=== PATIENT | female | born 1940 | race Caucasian/White ===

== ENCOUNTER 2017-06-26 11:20 | Inpatient (IN) | payer OTHER, MEDICARE ==
[~2017-06-26] VITALS: Ht 157.5 cm; Wt 117.1 kg
[2017-06-26] VITALS (7 sets, daily range): BP systolic 139–181; BP diastolic 62–77; PULSE 68–97; RESP 18–22; TEMP 97.6–98.7; O2SAT 89–98
[2017-06-26] MEDS ORDERED: LOSA25TA PO (11:36)
[2017-06-26] MEDS ORDERED: D3 U5000 PO (11:36)
[2017-06-26] MEDS ORDERED: METO25TA3 PO (11:36)
[2017-06-26] MEDS ORDERED: CENTCHW4 CHEW (11:36)
[2017-06-26] MEDS ORDERED: BUME1TAB PO (11:36)
[2017-06-26] MEDS ORDERED: OMEP20TA93 PO (11:36)
[2017-06-26] MEDS ORDERED: SIMV5TAB3 PO (11:36)
[2017-06-26] MEDS ORDERED: DILT-48 PO (11:36)
--- NOTE | 2017-06-26 11:37 | PD ---
HPI Chief Complaint: Chest Pain Time Seen by Provider: 11:27 Travel History International Travel<30 days: No Contact w/Intl Traveler<30days: No Traveled to known affect area: No History of Present Illness HPI 77-year-old female with history of A. fib not on any anticoagulation, here for evaluation of chest pain and dyspnea. The patient reports her symptoms have been going on for about a month. She reports chest tightness every day for the last month with dyspnea at rest, worse with exertion. The patient reports she is unable to walk across a room without becoming extremely short of breath. She has had a cough productive of yellowish sputum. No hemoptysis. No fevers or recent illness. No history of DVT or PE. She is on bumetanide, however she states it does not help her. She reports a 20 pound weight gain in the last 2 months. Her cushion gum applicator is Dr. Henning, however she reports that she would like to switch cardiologists. PFSH Social History Tobacco Use: No (Former smoker) Allergies-Medications (Allergen,Severity, Reaction): Coded Allergies: No Known Allergies (Verified Allergy, Unknown, 06/26/17) Reported Meds & Prescriptions Reported Meds & Active Scripts Active Reported Centrum (Multiple Vitamins W/ Minerals) 1 Chew 1 Tab CHEW DAILY D3 Ultra Strength (Cholecalciferol) 5,000 Unit Cap 5,000 Units PO DAILY Metoprolol Tartrate 25 Mg Tab 25 Mg PO DAILY Bumetanide 1 Mg Tab 1 Mg PO DAILY Simvastatin 5 Mg Tab 5 Mg PO HS Omeprazole 20 Mg Tab 20 Mg PO BID Losartan (Losartan Potassium) 25 Mg Tab 25 Mg PO DAILY Diltiazem ER 24 HR 240 Mg Caper 240 Mg PO HS Review of Systems Except as stated in HPI: all other systems reviewed are Neg Physical Exam Narrative GENERAL: Well-developed, well-nourished, overweight, mild respiratory distress, speaking full sentences. SKIN: Focused skin assessment warm/dry. HEAD: Atraumatic. Normocephalic. EYES: Pupils equal and round. No scleral icterus. No injection or drainage. ENT: No nasal bleeding or discharge. Mucous membranes pink and moist. NECK: Trachea midline. No JVD. CARDIOVASCULAR: Irregularly irregular. RESPIRATORY: Mild respiratory distress. Speaking full sentences. No accessory muscle use. Clear to auscultation. Breath sounds equal bilaterally. GASTROINTESTINAL: Abdomen soft, non-tender, nondistended. MUSCULOSKELETAL: No obvious deformities. No clubbing. No cyanosis. Moderate bilateral lower extremity edema. NEUROLOGICAL: Awake and alert. No obvious cranial nerve deficits. Motor grossly within normal limits. Normal speech. PSYCHIATRIC: Appropriate mood and affect; insight and judgment normal. Data Data Last Documented VS Vital Signs Date Time Temp Pulse Resp B/P (MAP) Pulse Ox O2 Delivery O2 Flow Rate FiO2 06/26/17 14:00 144/71 (95) 98 Nasal Cannula 06/26/17 12:37 90 22 06/26/17 12:06 2.00 Orders Orders Complete Blood Count With Diff (06/26/17 11:34) Comprehensive Metabolic Panel (06/26/17 11:34) B-Type Natriuretic Peptide (06/26/17 11:34) Act Partial Throm Time (Ptt) (06/26/17 11:34) Prothrombin Time / Inr (Pt) (06/26/17 11:34) Ckmb (Isoenzyme) Profile (06/26/17 11:34) Troponin I (06/26/17 11:34) Iv Access Insert/Monitor (06/26/17 11:34) Ecg Monitoring (06/26/17 11:34) Oximetry (06/26/17 11:34) Oxygen Administration (06/26/17 11:34) Chest, Single Ap (06/26/17 11:34) Sodium Chloride 0.9% Flush (Ns Flush) (06/26/17 11:45) Aspirin Chew (Aspirin Chew) (06/26/17 11:45) Nitroglycerin Sl (Nitrostat Sl) (06/26/17 11:45) Furosemide Inj (Lasix Inj) (06/26/17 12:30) Urinalysis - C+S If Indicated (06/26/17 13:20) Admit Order (Ed Use Only) (06/26/17 14:05) Labs Laboratory Tests Test 06/26/17 11:30 06/26/17 13:35 White Blood Count 9.9 TH/MM3 Red Blood Count 4.43 MIL/MM3 Hemoglobin 9.3 GM/DL Hematocrit 31.1 % Mean Corpuscular Volume 70.2 FL Mean Corpuscular Hemoglobin 20.9 PG Mean Corpuscular Hemoglobin Concent 29.8 % Red Cell Distribution Width 17.6 % Platelet Count 450 TH/MM3 Mean Platelet Volume 8.7 FL Neutrophils (%) (Auto) 78.6 % Lymphocytes (%) (Auto) 14.6 % Monocytes (%) (Auto) 5.0 % Eosinophils (%) (Auto) 1.0 % Basophils (%) (Auto) 0.8 % Neutrophils # (Auto) 7.8 TH/MM3 Lymphocytes # (Auto) 1.4 TH/MM3 Monocytes # (Auto) 0.5 TH/MM3 Eosinophils # (Auto) 0.1 TH/MM3 Basophils # (Auto) 0.1 TH/MM3 CBC Comment AUTO DIFF Differential Comment AUTO DIFF CONFIRMED Platelet Estimate NORMAL Platelet Morphology Comment NORMAL Basophilic Stippling FAINT Ovalocytes 1+ Rouleau PRESENT Prothrombin Time 10.4 SEC Prothromb Time International Ratio 1.0 RATIO Activated Partial Thromboplast Time 26.7 SEC Blood Urea Nitrogen 17 MG/DL Creatinine 0.64 MG/DL Random Glucose 155 MG/DL Total Protein 7.6 GM/DL Albumin 3.3 GM/DL Calcium Level 8.9 MG/DL Alkaline Phosphatase 109 U/L Aspartate Amino Transf (AST/SGOT) 17 U/L Alanine Aminotransferase (ALT/SGPT) 31 U/L Total Bilirubin 0.5 MG/DL Sodium Level 142 MEQ/L Potassium Level 3.7 MEQ/L Chloride Level 105 MEQ/L Carbon Dioxide Level 27.2 MEQ/L Anion Gap 10 MEQ/L Estimat Glomerular Filtration Rate 90 ML/MIN Total Creatine Kinase 50 U/L Troponin I LESS THAN 0.02 NG/ML B-Type Natriuretic Peptide 51 PG/ML Urine Collection Type CLEAN CATCH Urine Color YELLOW Urine Turbidity CLEAR Urine pH 6.0 Urine Specific Arnold 1.010 Urine Protein NEG mg/dL Urine Glucose (UA) NEG mg/dL Urine Ketones NEG mg/dL Urine Occult Blood NEG Urine Nitrite NEG Urine Bilirubin NEG Urine Urobilinogen 0.2 MG/DL Urine Leukocyte Esterase NEG Urine WBC 0-2 /hpf Urine Squamous Epithelial Cells 0-5 /hpf Urine Amorphous Sediment FEW Microscopic Urinalysis Comment MUCOUS PRESENT Urine Collection Time 1335 MDM Medical Decision Making Medical Screen Exam Complete: Yes Emergency Medical Condition: Yes Interpretation(s) EKG: Sinus, rate 102, leftward axis, LBBB, Q waves in inferior leads, no acute ischemic abnormality. Differential Diagnosis CHF/pulmonary edema, ACS, pneumothorax, PE, pneumonia Narrative Course Initial vital signs show heart rate 92, blood pressure 169/77, pulse ox 89% on room air. CBC: WBC 9.9, hemoglobin 9.3, hematocrit 31.1, platelets 450, MCV 70. The patient reports history of anemia. She denies melena or hematochezia. CMP is unremarkable. Cardiac enzymes are negative. BNP Chest x-ray: CONCLUSION: 1. Basilar atelectasis with suspected vascular congestion. Cardiomegaly. No consolidation or significant effusion. Patient was given 1 sublingual nitroglycerin, 324 mg of aspirin, and 40 mg of Lasix IV and on reassessment feels improved. She endorses orthopnea over the last several nights. She has significant bilateral lower extremity edema. Her O2 saturation is also 89% on room air. She will be admitted for further treatment and evaluation of CHF exacerbation. Case discussed with hospitalist Dr. Combs who will admit the patient to his service. Diagnosis Primary Impression: CHF exacerbation Qualified Codes: I50.9 - Heart failure, unspecified Additional Impression: Chest pain Qualified Codes: R07.9 - Chest pain, unspecified Admitting Information Admitting Physician Requests: Admit Tam Reid MD Jun 26, 2017 11:37
[2017-06-26] MEDS ORDERED: SODIUM CHLORIDE 0.9% FLUSH 10 ML FLUSH IVF PRN (11:45)
[2017-06-26] MEDS ORDERED: ASPIRIN 81 MG CHEW TAB PO ONE (11:45)
[2017-06-26] MEDS ORDERED: NITROGLYCERIN 0.4 MG SL 25 TABS/BTL SL ONE (11:45)
[2017-06-26 12:16] LABS: AUTOMATED NEUTROPHIL # 7.8 TH/MM3 (1.8-7.7); BASOPHIL # 0.1 TH/MM3 (0-0.2); BASOPHIL % 0.8 % (0.0-2.0); EOSINOPHIL # 0.1 TH/MM3 (0-0.4); HEMATOCRIT 31.1 % (35.0-46.0); HEMOGLOBIN 9.3 GM/DL (11.6-15.3); LYMPH % 14.6 % (9.0-44.0); LYMPHOCYTE # 1.4 TH/MM3 (1.0-4.8); MEAN CELL VOLUME 70.2 FL (80.0-100.0); MEAN CORPUSCULAR HEMOGLOBIN 20.9 PG (27.0-34.0); MEAN PLATELET VOLUME 8.7 FL (7.0-11.0); MONOCYTE # 0.5 TH/MM3 (0-0.9); NEUT % 78.6 % (16.0-70.0); PLATELET COUNT 450 TH/MM3 (150-450); RED BLOOD COUNT 4.43 MIL/MM3 (4.00-5.30); RED CELL DISTRIBUTION WIDTH 17.6 % (11.6-17.2); WHITE BLOOD COUNT 9.9 TH/MM3 (4.0-11.0)
--- NOTE | 2017-06-26 12:17 | RADRPT ---
EXAM DATE/TIME: 06/26/2017 11:51 [facility] COMPARISON: No previous studies available for comparison. INDICATIONS : Short of breath, chest pain MEDICAL HISTORY : Hypertension. SURGICAL HISTORY : None. ENCOUNTER: Initial ACUITY: 2 months PAIN SCORE: 7/10 LOCATION: Bilateral chest FINDINGS: There is mild basilar airspace disease most characteristic of atelectasis. No significant edema. Ther e is some mild vascular congestion. Heart size enlarged. No effusions. No pneumothorax. CONCLUSION: 1. Basilar atelectasis with suspected vascular congestion. Cardiomegaly. No consolidation or signific ant effusion. Prabhjot Xie MD on June 26, 2017 at 12:14 Board Certified Radiologist. This report was verified electronically.
[2017-06-26 12:23] LABS: MEAN CORPUSCULAR HGB CONC 29.8 % (32.0-36.0)
[2017-06-26] MEDS ORDERED: FUROSEMIDE 40 MG/4 ML VIAL IV PUSH ONE (12:30)
[2017-06-26 12:39] LABS: PROTHROMBIN TIME - PATIENT 10.4 SEC (9.8-11.6)
[2017-06-26 12:42] LABS: OVALOCYTES 1+ (NORMAL); ROULEAUX PRESENT (NORMAL)
[2017-06-26 12:54] LABS: CHLORIDE 105 MEQ/L (98-107); SODIUM (NA) 142 MEQ/L (136-145)
[2017-06-26 12:58] LABS: ALBUMIN 3.3 GM/DL (3.4-5.0); BICARBONATE 27.2 MEQ/L (21.0-32.0); BLOOD UREA NITROGEN 17 MG/DL (7-18); CALCIUM 8.9 MG/DL (8.5-10.1); GLUCOSE,RANDOM 155 MG/DL (74-106)
[2017-06-26 13:01] LABS: ALT (GPT) 31 U/L (10-53); AST (GOT) 17 U/L (15-37); CREATININE 0.64 MG/DL (0.50-1.00); GLOMERULAR FILTRATION RATE 90 ML/MIN (>89)
[2017-06-26 13:03] LABS: TOTAL BILIRUBIN ADULT 0.5 MG/DL (0.2-1.0); TOTAL PROTEIN 7.6 GM/DL (6.4-8.2)
[2017-06-26 13:04] LABS: ALKALINE PHOSPHATASE 109 U/L (45-117)
[2017-06-26 13:06] LABS: TROPONIN I LESS THAN 0.02 NG/ML (0.02-0.05)
[2017-06-26 14:34] LABS: BILIRUBIN, URINE NEG (NEG); BLOOD, URINE NEG (NEG); GLUCOSE,URINE NEG (NEG); KETONE, URINE NEG (NEG); NITRITE,URINE NEG (NEG); URINE COLOR YELLOW (YELLW/STRAW); URINE LEUKOCYTE ESTERASE NEG (NEG)
[2017-06-26 14:47] LABS: AMORPHOUS SEDIMENT, URINE FEW; SQUAMOUS EPITHELIAL CELL URINE 0-5 /hpf (0-5); WBC, URINE 0-2 /hpf (0-5)
[2017-06-26] MEDS ORDERED: SODIUM CHLORIDE 0.9% FLUSH 10 ML FLUSH IV FLUSH PRN (15:15)
[2017-06-26] MEDS ORDERED: ONDANSETRON HCL 4 MG/2 ML VIAL IVP PRN (15:15)
[2017-06-26] MEDS ORDERED: MAGNESIUM HYDROXIDE SUSP 30 ML CUP PO PRN (15:15)
[2017-06-26] MEDS ORDERED: NALOXONE HCL 0.4 MG/ML AMP IV PUSH PRN (15:15)
[2017-06-26] MEDS ORDERED: MORPHINE SULFATE 2 MG/ML INJ IV PUSH PRN ×2 (15:15)
[2017-06-26] MEDS ORDERED: ENOXAPARIN SODIUM 40 MG/0.4 ML SYRINGE SQ SCH (16:00)
--- NOTE | 2017-06-26 18:27 | HHI.HP ---
[facility] Service [facility] Primary Care Physician Justus Fitzgerald MD Admission Diagnosis CHF exacerbation, chest pain Diagnoses: Chief Complaint: Dyspnea, chest pain, orthopnea Travel History International Travel<30 Days: No Contact w/Intl Traveler <30 Da: No Traveled to Known Affected Are: No History of Present Illness This is a pleasant 77-year-old female patient with a known medical history of hypertension, hypercholesterolemia, GERD and CHF who presented to the ED with complaints of worsening dyspnea with associated chest pain. Patient states that over the course of the last couple months she has been having increasing dyspnea on exertion and orthopnea. Patient states that roughly 2 weeks she has been feeling fatigued and extremely short of breath. She states that she is unable to walk across the room without becoming short of breath. She is unable to perform her activities of daily living without having to rest. Patient states that over the course of the last 2 days she has developed a chest discomfort, characterized as pressure in nature, is intermittent and comes and go with activity. She states that the pain worsens with walking and is relieved with rest. When the pain is present to 10 out of 10 on pain scale and last several minutes. Patient does admit to a chronic cough with clear phlegm. Denies any recent illness including fever, chills, abdominal pain, nausea, vomiting, diarrhea or dysuria. Patient's PCP is Dr. Fitzgerald was last seen 1-1/ 2 months ago with no changes in medicines. Patient was previously following Dr. Henning but has not seen him for over 2 years. Patient states she underwent a stress test over 10 years ago which was reportedly negative. Has not had a recent echocardiogram. And does not know whether she has actually the diagnosis of CHF. It should be noted that patient has gained roughly 20 pounds over the last 2 months. She does present with bilateral leg edema. No history of DVT or PE. She has been compliant with medications including Bumex. Review of Systems Constitutional: DENIES: Fever, Weight loss Eyes: DENIES: Blurred vision, Diplopia Respiratory: COMPLAINS OF: Cough, Shortness of breath, DENIES: Sputum production Cardiovascular: COMPLAINS OF: Chest pain, Dyspnea on Exertion, Lower Extremity Edema, Orthopnea, DENIES: Palpitations Gastrointestinal: DENIES: Abdominal pain, Black stools, Bloody stools, Constipation, Diarrhea, Nausea, Vomiting Musculoskeletal: DENIES: Joint pain Neurologic: DENIES: Abnormal gait Psychiatric: DENIES: Anxiety Except as stated in HPI: all other systems reviewed are Neg Past Family Social History Past Medical History Dyslipidemia GERD Hypertension CHF Past Surgical History Left knee replacement Bilateral cataracts Hernia repair Reported Medications Active Reported Centrum (Multiple Vitamins W/ Minerals) 1 Chew 1 Tab CHEW DAILY D3 Ultra Strength (Cholecalciferol) 5,000 Unit Cap 5,000 Units PO DAILY Metoprolol Tartrate 25 Mg Tab 25 Mg PO DAILY Bumetanide 1 Mg Tab 1 Mg PO DAILY Simvastatin 5 Mg Tab 5 Mg PO HS Omeprazole 20 Mg Tab 20 Mg PO BID Losartan (Losartan Potassium) 25 Mg Tab 25 Mg PO DAILY Diltiazem ER 24 HR 240 Mg Caper 240 Mg PO HS Allergies: Coded Allergies: No Known Allergies (Verified Allergy, Unknown, 06/26/17) Active Ordered Medications Current Medications Medications (Trade) Dose Ordered Sig/Van Route Start Time Stop Time Status Last Admin (NS Flush) 2 ml UNSCH PRN IV FLUSH 06/26/17 15:15 (NS Flush) 2 ml BID IV FLUSH 06/26/17 21:00 (Zofran Inj) 4 mg Q6H PRN IVP 06/26/17 15:15 (Lovenox Inj) 40 mg Q24H SQ 06/26/17 16:00 06/26/17 16:12 (Morphine Inj) 2 mg Q3H PRN IV PUSH 06/26/17 15:15 (Morphine Inj) 4 mg Q3H PRN IV PUSH 06/26/17 15:15 (Narcan Inj) 0.4 mg UNSCH PRN IV PUSH 06/26/17 15:15 (Milk Of Magnesia Liq) 30 ml Q12H PRN PO 06/26/17 15:15 (Vitamin D3) 5,000 units DAILY PO 06/27/17 09:00 UNV (Cardizem Cd) 240 mg HS PO 06/26/17 21:00 UNV (Cozaar) 25 mg DAILY PO 06/27/17 09:00 UNV (Theragran M Tab) 1 tab DAILY PO 06/27/17 09:00 UNV Non-Formulary Medication 20 mg BID PO 06/26/17 21:00 UNV Non-Formulary Medication 5 mg HS PO 06/26/17 21:00 UNV Family History Maternal medical history significant for ME at the age of 72. Father had unspecified cancer. Social History Patient denies any tobacco, alcohol or illicit drug use. Physical Exam Vital Signs Vital Signs Date Time Temp Pulse Resp B/P (MAP) Pulse Ox O2 Delivery O2 Flow Rate FiO2 06/26/17 16:00 97.6 97 18 142/62 (88) 94 06/26/17 15:20 06/26/17 14:00 144/71 (95) 98 Nasal Cannula 06/26/17 12:37 90 22 181/67 (105) 91 Nasal Cannula 06/26/17 12:06 93 Nasal Cannula 2.00 06/26/17 12:02 20 169/77 (107) 06/26/17 11:35 22 89 Room Air 06/26/17 11:30 89 Nasal Cannula 2.00 06/26/17 11:20 92 169/77 (107) 89 Physical Exam GENERAL: Well-developed, well-nourished patient in NAD. On supplemental O2. SKIN: Warm and dry. No rash. HEAD: Normocephalic. Atraumatic. EYES: Pupils equal and round. No scleral icterus. No injection or drainage. ENT: No nasal bleeding or discharge. Mucous membranes pink and moist. NECK: Supple. Trachea midline. CARDIOVASCULAR: Regular rate and rhythm. S1, S2 noted. 2/6 systolic murmur. No reproducible chest pain to palpation. RESPIRATORY: No accessory muscle use. Clear to auscultation. Breath sounds equal bilaterally. GASTROINTESTINAL: Abdomen soft, non-tender, nondistended. Normoactive bowel sounds x4. Extremities: Bilateral 2+ pitting edema. NEUROLOGICAL: Awake and alert. No obvious cranial nerve deficits. Motor grossly within normal limits. 5/5 muscle strength in bilateral upper and lower extremities. Normal speech. PSYCHIATRIC: Appropriate mood and affect; insight and judgment normal. Laboratory Laboratory Tests Test 06/26/17 11:30 06/26/17 13:35 06/26/17 16:27 White Blood Count 9.9 Red Blood Count 4.43 Hemoglobin 9.3 Hematocrit 31.1 Mean Corpuscular Volume 70.2 Mean Corpuscular Hemoglobin 20.9 Mean Corpuscular Hemoglobin Concent 29.8 Red Cell Distribution Width 17.6 Platelet Count 450 Mean Platelet Volume 8.7 Neutrophils (%) (Auto) 78.6 Lymphocytes (%) (Auto) 14.6 Monocytes (%) (Auto) 5.0 Eosinophils (%) (Auto) 1.0 Basophils (%) (Auto) 0.8 Neutrophils # (Auto) 7.8 Lymphocytes # (Auto) 1.4 Monocytes # (Auto) 0.5 Eosinophils # (Auto) 0.1 Basophils # (Auto) 0.1 CBC Comment AUTO DIFF Differential Comment AUTO DIFF CONFIRMED Platelet Estimate NORMAL Platelet Morphology Comment NORMAL Basophilic Stippling FAINT Ovalocytes 1+ Rouleau PRESENT Prothrombin Time 10.4 Prothromb Time International Ratio 1.0 Activated Partial Thromboplast Time 26.7 Blood Urea Nitrogen 17 Creatinine 0.64 Random Glucose 155 Total Protein 7.6 Albumin 3.3 Calcium Level 8.9 Alkaline Phosphatase 109 Aspartate Amino Transf (AST/SGOT) 17 Alanine Aminotransferase (ALT/SGPT) 31 Total Bilirubin 0.5 Sodium Level 142 Potassium Level 3.7 Chloride Level 105 Carbon Dioxide Level 27.2 Anion Gap 10 Estimat Glomerular Filtration Rate 90 Total Creatine Kinase 50 Troponin I LESS THAN 0.02 LESS THAN 0.02 B-Type Natriuretic Peptide 51 Urine Collection Type CLEAN CATCH Urine Color YELLOW Urine Turbidity CLEAR Urine pH 6.0 Urine Specific [place] 1.010 Urine Protein NEG Urine Glucose (UA) NEG Urine Ketones NEG Urine Occult Blood NEG Urine Nitrite NEG Urine Bilirubin NEG Urine Urobilinogen 0.2 Urine Leukocyte Esterase NEG Urine WBC 0-2 Urine Squamous Epithelial Cells 0-5 Urine Amorphous Sediment FEW Microscopic Urinalysis Comment MUCOUS PRESENT Urine Collection Time 1335 Result Diagram: 06/26/17 1130 06/26/17 1130 Imaging Last Impressions Chest X-Ray 06/26/17 1134 Signed Impressions: Service Date/Time: Monday, June 26, 2017 11:51 - CONCLUSION: 1. Basilar atelectasis with suspected vascular congestion. Cardiomegaly. No consolidation or significant effusion. Prabhjot Xie MD Septic Shock Reassessment Septic shock perfusion: reassessment completed Caprini VTE Risk Assessment Caprini VTE Risk Assessment: Mod/High Risk (score >= 2) Caprini Risk Assessment Model Point Value = 1 Point Value = 2 Point Value = 3 Point Value = 5 Age 41-60 Minor surgery BMI > 25 kg/m2 Swollen legs Varicose veins or History of unexplained or recurrent spontaneous Oral contraceptives or hormone replacement Sepsis (< 1 month) Serious lung disease, including pneumonia (< 1 month) Abnormal pulmonary function Acute myocardial infarction Congestive heart failure (< 1 month) History of inflammatory bowel disease Medical patient at bed rest Age 61-74 Arthroscopic surgery Major open surgery (> 45 min) Laparoscopic surgery (> 45 min) Malignancy Confined to bed (> 72 hours) Immobilizing plaster cast Central venous access Age >= 75 History of VTE Family history of VTE Factor V Leiden Prothrombin [id number] Lupus anticoagulant Anticardiolipin antibodies Elevated serum homocysteine Heparin-induced thrombocytopenia Other congenital or acquired thrombophilia Stroke (< 1 month) Elective arthroplasty Hip, pelvis, or leg fracture Acute spinal cord injury (< 1 month) Prophylaxis Regimen Total Risk Factor Score Risk Level Prophylaxis Regimen 0-1 Low Early ambulation 2 Moderate Order ONE of the following: *Sequential Compression Device (SCD) *Heparin 5000 units SQ BID 3-4 Higher Order ONE of the following medications: *Heparin 5000 units SQ TID *Enoxaparin/Lovenox 40 mg SQ daily (WT < 150 kg, CrCl > 30 mL/min) *Enoxaparin/Lovenox 30 mg SQ daily (WT < 150 kg, CrCl > 10-29 mL/min) *Enoxaparin/Lovenox 30 mg SQ BID (WT < 150 kg, CrCl > 30 mL/min) AND/OR *Sequential Compression Device (SCD) 5 or more Highest Order ONE of the following medications: *Heparin 5000 units SQ TID (Preferred with Epidurals) *Enoxaparin/Lovenox 40 mg SQ daily (WT < 150 kg, CrCl > 30 mL/min) *Enoxaparin/Lovenox 30 mg SQ daily (WT < 150 kg, CrCl > 10-29 mL/min) *Enoxaparin/Lovenox 30 mg SQ BID (WT < 150 kg, CrCl > 30 mL/min) AND *Sequential Compression Device (SCD) Assessment and Plan Problem List: (1) Chest pain ICD Code: R07.9 - Chest pain, unspecified Status: Acute (2) CHF exacerbation ICD Code: I50.9 - Heart failure, unspecified Status: Acute Assessment and Plan This is a pleasant 77-year-old female patient with a known medical history of hypertension, hypercholesterolemia, GERD and CHF who presented to the ED with complaints of worsening dyspnea with associated chest pain. Congestive heart failure, unspecified, with possible exacerbation Atypical chest pain Chest x-ray reviewed showing basilar atelectasis with suspected vascular congestion. Cardiomegaly. No consolidation or significant effusion. BNP is 51. Given Lasix 40 mg IV 1 in ED. Continue. Placed on potassium supplementation. Monitor BMP. CBC and BMP reviewed, essentially unremarkable. Serial EKGs and serial troponins have been ordered for ruling out ACS purposes. Initial 2 troponins flat. Continue to monitor trend. EKG reviewed showing left bundle branch block with controlled heart rate. Continue to monitor. Patient is unaware of CHF diagnosis, has not received an echo for over 3 years. Will order, follow. Supplemental O2 as needed, patient requiring 2LNC. Does not use home O2 at home. Place on cardiac telemetry for monitoring of any arrhythmias. Chest pain has now resolved. Was given aspirin in ED. Control pain, IV narcotics available as needed per pain scale. If ACS ruled out in a.m., patient will undergo a nuclear stress test to further rule out any possibility of ischemia. Keep n.p.o. after midnight. Patient is stable at this time and agreeable to the plan. Hypertension, chronic: Continue home medications. Monitor BP trends. Hyperlipidemia, chronic: Continue home statin. DVT prophylaxis: SCDs. Lovenox. Physician Certification 2 Midnight Certification Type: Admission for Inpatient Services Order for Inpatient Services The services are ordered in accordance with Medicare regulations or non- Medicare payer requirements, as applicable. In the case of services not specified as inpatient-only, they are appropriately provided as inpatient services in accordance with the 2-midnight benchmark. Estimated LOS (days): 2 2 days is the estimated time the patient will need to remain in the hospital, assuming treatment plan goals are met and no additional complications. Post-Hospital Plan: Home Problem Qualifiers (1) Chest pain: Qualified Codes: R07.9 - Chest pain, unspecified (2) CHF exacerbation: Qualified Codes: I50.9 - Heart failure, unspecified Jannette Burger Jun 26, 2017 18:27
[2017-06-26] MEDS: DILTIAZEM-CD 240 MG CAP ER PO SCH (21:56)
[2017-06-26] MEDS: PRAVASTATIN SOD 10 MG TAB PO SCH (21:56)
[2017-06-26] MEDS: SODIUM CHLORIDE 0.9% FLUSH 10 ML FLUSH IV FLUSH SCH (21:57)
[2017-06-27 00:06] VITALS: BP 143/51; PULSE 88; RESP 16; TEMP 98; O2SAT 91
[2017-06-27 04:43] VITALS: BP 149/67; PULSE 86; RESP 20; TEMP 97.9; O2SAT 90
[2017-06-27 06:55] LABS: AUTOMATED NEUTROPHIL # 6.5 TH/MM3 (1.8-7.7); BASOPHIL % 0.2 % (0.0-2.0); EOSINOPHIL # 0.1 TH/MM3 (0-0.4); EOSINOPHIL % 1.2 % (0.0-4.0); HEMATOCRIT 29.2 % (35.0-46.0); HEMOGLOBIN 8.5 GM/DL (11.6-15.3); LYMPH % 16.4 % (9.0-44.0); LYMPHOCYTE # 1.4 TH/MM3 (1.0-4.8); MEAN CELL VOLUME 69.4 FL (80.0-100.0); MEAN CORPUSCULAR HEMOGLOBIN 20.2 PG (27.0-34.0); MEAN PLATELET VOLUME 7.9 FL (7.0-11.0); MONO % 7.1 % (0.0-8.0); MONOCYTE # 0.6 TH/MM3 (0-0.9); NEUT % 75.1 % (16.0-70.0); PLATELET COUNT 354 TH/MM3 (150-450); RED CELL DISTRIBUTION WIDTH 17.3 % (11.6-17.2); WHITE BLOOD COUNT 8.6 TH/MM3 (4.0-11.0)
[2017-06-27 06:58] LABS: MEAN CORPUSCULAR HGB CONC 29.1 % (32.0-36.0)
[2017-06-27 07:03] LABS: CHLORIDE 103 MEQ/L (98-107); SODIUM (NA) 141 MEQ/L (136-145)
[2017-06-27 07:11] LABS: BICARBONATE 31.2 MEQ/L (21.0-32.0); BLOOD UREA NITROGEN 16 MG/DL (7-18); CALCIUM 8.4 MG/DL (8.5-10.1); GLUCOSE,RANDOM 114 MG/DL (74-106)
[2017-06-27 07:13] LABS: ALT (GPT) 25 U/L (10-53)
[2017-06-27 07:14] LABS: AST (GOT) 15 U/L (15-37); CREATININE 0.46 MG/DL (0.50-1.00); GLOMERULAR FILTRATION RATE 132 ML/MIN (>89); TOTAL BILIRUBIN ADULT 0.5 MG/DL (0.2-1.0); TOTAL PROTEIN 6.9 GM/DL (6.4-8.2)
[2017-06-27 07:15] LABS: ALKALINE PHOSPHATASE 94 U/L (45-117)
[2017-06-27 08:00] VITALS: BP 133/66; PULSE 80; RESP 20; TEMP 97; O2SAT 90
[2017-06-27] MEDS: SODIUM CHLORIDE 0.9% FLUSH 10 ML FLUSH IV FLUSH SCH ×2 (08:36→21:52)
[2017-06-27] MEDS: PANTOPRAZOLE SOD 40 MG DELAYED RELEASE TAB PO SCH (08:37)
[2017-06-27] MEDS: MULTIVITAMINS/MINERALS THERAPEUTIC TAB PO SCH (08:37)
[2017-06-27] MEDS: CHOLECALCIFEROL (VIT D3) 5000 UNIT CAP PO SCH (08:37)
[2017-06-27] MEDS: POTASSIUM CHLORIDE 10 MEQ CONTROLLED RELEASE TAB PO SCH (08:37)
[2017-06-27] MEDS: LOSARTAN 25 MG TAB PO SCH (08:38)
[2017-06-27] MEDS: FUROSEMIDE 40 MG/4 ML VIAL IV PUSH SCH (08:38)
[2017-06-27] MEDS ORDERED: REGADENOSON INJ 0.4 MG/5 ML SYR IV ONE (12:39)
--- NOTE | 2017-06-27 12:52 | ECHRPT ---
Indication: HEART FAILURE CONCLUSIONS The left ventricular systolic function is normal with an estimated ejection fraction in the range of 60-65%. Normal left ventricular size. Wall thickness is normal. No regional wall motion abnormalities are present. The left atrial size is [id number] dilated. Diffuse calcification of the aortic valve. Mild thickening of the tricuspid valve leaflets. There is mild tricuspid valve regurgitation. The estimated pulmonary arterial pressure is 56.8 mmHg. Trivial pulmonary valve regurgitation. BP: 149 / 67 HR: 94 Rhythm: MEASUREMENTS (Male / Female) Normal Values Technical Quality: 2D ECHO LV Diastolic Diameter PLAX 5.5 cm 4.2 - 5.9 / 3.9 - 5.3 cm LV Systolic Diameter PLAX 3.9 cm IVS Diastolic Thickness 1.0 cm 0.6 - 1.0 / 0.6 - 0.9 cm LVPW Diastolic Thickness 1.0 cm 0.6 - 1.0 / 0.6 - 0.9 cm LV Relative Wall Thickness 0.3 RV Internal Dim ED PLAX 2.8 cm LVOT Diameter 1.9 cm LA Systolic Diameter LX 4.5 cm 3.0 - 4.0 / 2.7 - 3.8 cm LV Ejection Fraction MOD 4C 61.4 % LV Cardiac Index MOD 4C 3201.3 cm/minm LV Ejection Fraction 4C AL 64.5 % LV Cardiac Index 4C AL 3522.7 cm/minm M-MODE Aortic Root Diameter MM 3.3 cm AV Cusp Separation MM 2.1 cm DOPPLER AV Peak Velocity 159.0 cm/s AV Peak Gradient 10.1 mmHg LVOT Peak Velocity 94.3 cm/s LVOT Peak Gradient 3.6 mmHg AV Area Cont Eq pk 1.7 cm MV Area PHT 4.8 cm Mitral E Point Velocity 94.3 cm/s Mitral A Point Velocity 92.8 cm/s Mitral E to A Ratio 1.0 LV E' Lateral Velocity 4.9 cm/s Mitral E to LV E' Lateral Ratio 19.4 LV E' Septal Velocity 3.7 cm/s Mitral E to LV E' Septal Ratio 25.5 TR Peak Velocity 342.0 cm/s TR Peak Gradient 46.8 mmHg Right Atrial Pressure 10.0 mmHg Pulmonary Artery Systolic Pressu 56.8 mmHg Right Ventricular Systolic Press 56.8 mmHg PV Peak Velocity 103.0 cm/s PV Peak Gradient 4.2 mmHg FINDINGS LEFT VENTRICLE Normal left ventricular size. Wall thickness is normal. No regional wall motion abnormalities are present. RIGHT VENTRICLE Normal right ventricular size and systolic function. LEFT ATRIUM The left atrial size is [id number] dilated. RIGHT ATRIUM The right atrial size is normal. ATRIAL SEPTUM Normal atrial septal thickness without atrial level shunting by limited color doppler interrogation. AORTA The aortic root and proximal ascending aorta are normal in size on limited imaging. MITRAL VALVE Structurally normal mitral valve. No mitral valve stenosis or regurgitation. AORTIC VALVE Trileaflet aortic valve. Diffuse calcification of the aortic valve. TRICUSPID VALVE Mild thickening of the tricuspid valve leaflets. There is mild tricuspid valve regurgitation. The estimated pulmonary arterial pressure is 56.8 mmHg. PULMONARY VALVE Trivial pulmonary valve regurgitation. VESSELS The inferior vena cava is normal in size. PERICARDIUM No pericardial effusion. Esteban Chandler MD, FACC (Electronically Signed) Final Date:27 June 2017 12:51
--- NOTE | 2017-06-27 14:25 | RADRPT ---
EXAM DATE/TIME: 06/27/2017 12:01 [place] COMPARISON: No previous studies available for comparison. INDICATIONS : Mid chest pain with shortness of breath for two days. Angina. Congestive heart failure. DOSE: 35.0 mCi Tc99m Myoview at stress. 8.7 mCi Tc99m Myoview at rest. 0.4 mg Lexiscan STRESS SYMPTOMS: Flush. EJECTION FRACTION: 41% MEDICAL HISTORY : Gastroesophageal reflux disease. Hypertension. SURGICAL HISTORY : Total knee replacement, left. Inguinal hernia repair. ENCOUNTER: Initial ACUITY: 2 days PAIN SCALE: 4/10 LOCATION: Midsternal chest TECHNIQUE: The patient underwent pharmacologic stress with infusion of prescribed dose. Continuous ECG tracing was monitored during stress. Gated SPECT imaging was performed after stress and conventional SPECT i maging was performed at rest. The examination was performed on a SPECT/CT scanner, both attenuation and non-corrected datasets were reviewed. FINDINGS: DISTRIBUTION: The maximum perfused segment at stress is in the anterolateral wall. PERFUSION STUDY: Focal perfusion abnormality in the mid to inferior septal wall. GATED STUDY: Mild decreased wall motion in the inferior wall with mild global hypokinesia. CONCLUSION: 1. Findings suggesting focal stress-induced ischemia in the mid to inferior septal wall. 2. Global hypokinesia with more prominent decreased wall motion in the inferior wall. Reduced EF of 4 1%. RISK CATEGORY: Intermediate (1-3% Annual Mortality Rate) Chase Jerez MD on June 27, 2017 at 14:14 Board Certified Radiologist. This report was verified electronically.
--- NOTE | 2017-06-27 15:56 | HHI.PR ---
Subjective Remarks Follow-up chest pain. Patient seen and examined, lying in bed comfortably status post nuclear stress test. Report reviewed, showing ischemia in the mid septal wall. Results called to on-call demurrage man Dr. Pugh who requests patient be transferred to the main hospital to undergo cardiac catheterization tomorrow. Patient's chest pain has resolved. Heparin drip will be started. Able to eat today. N.p.o. after midnight. Denies any new acute events. Objective Vitals Vital Signs Date Time Temp Pulse Resp B/P (MAP) Pulse Ox O2 Delivery O2 Flow Rate FiO2 06/27/17 08:00 97.0 80 20 133/66 (88) 90 06/27/17 04:43 97.9 86 20 149/67 (94) 90 06/27/17 00:06 98.0 88 16 143/51 (81) 91 06/26/17 20:17 98.7 68 22 139/66 (90) 97 06/26/17 16:00 97.6 97 18 142/62 (88) 94 I/O 06/26/17 06/26/17 06/26/17 06/27/17 06/27/17 06/27/17 06:59 14:59 22:59 06:59 14:59 22:59 Output Total 1000 ml Balance -1000 ml Output Urine Total 1000 ml # Voids 2 4 1 # Bowel Movements 1 Result Diagram: 06/27/17 0533 06/27/17 0533 Imaging Last Impressions Myocardial Perfusion Scan Nuc Med 06/27/17 0000 Signed Impressions: Service Date/Time: Tuesday, June 27, 2017 12:01 - CONCLUSION: 1. Findings suggesting focal stress-induced ischemia in the mid to inferior septal wall. 2. Global hypokinesia with more prominent decreased wall motion in the inferior wall. Reduced EF of 41%%. RISK CATEGORY: Intermediate (1-3%% Annual Mortality Rate) Chase Jerez MD Chest X-Ray 06/26/17 1134 Signed Impressions: Service Date/Time: Monday, June 26, 2017 11:51 - CONCLUSION: 1. Basilar atelectasis with suspected vascular congestion. Cardiomegaly. No consolidation or significant effusion. Prabhjot Xie MD Objective Remarks GENERAL: Well-developed, well-nourished patient in NAD. On supplemental O2. SKIN: Warm and dry. No rash. HEAD: Normocephalic. Atraumatic. EYES: Pupils equal and round. No scleral icterus. No injection or drainage. ENT: No nasal bleeding or discharge. Mucous membranes pink and moist. NECK: Supple. Trachea midline. CARDIOVASCULAR: Regular rate and rhythm. S1, S2 noted. 2/6 systolic murmur. No reproducible chest pain to palpation. RESPIRATORY: No accessory muscle use. Clear to auscultation. Breath sounds equal bilaterally. GASTROINTESTINAL: Abdomen soft, non-tender, nondistended. Normoactive bowel sounds x4. Extremities: Bilateral 2+ pitting edema. NEUROLOGICAL: Awake and alert. No obvious cranial nerve deficits. Motor grossly within normal limits. 5/5 muscle strength in bilateral upper and lower extremities. Normal speech. PSYCHIATRIC: Appropriate mood and affect; insight and judgment normal. A/P Problem List: (1) Chest pain ICD Code: R07.9 - Chest pain, unspecified Status: Acute (2) CHF exacerbation ICD Code: I50.9 - Heart failure, unspecified Status: Acute Assessment and Plan This is a pleasant 77-year-old female patient with a known medical history of hypertension, hypercholesterolemia, GERD who presented to the ED with complaints of worsening dyspnea with associated chest pain. Chest pain ruled out acute coronary event, rule out coronary artery disease Congestive heart failure questionable exacerbation Chest x-ray reviewed showing basilar atelectasis with suspected vascular congestion. Cardiomegaly. No consolidation or significant effusion. BNP is 51. Given Lasix 40 mg IV 1 in ED. Continue scheduled. Placed on potassium supplementation. Monitor BMP. CBC and BMP reviewed, essentially unremarkable. Serial EKGs and serial troponins have been ordered for ruling out ACS purposes. Troponins flat. EKG reviewed showing left bundle branch block with controlled heart rate. Patient is unaware of CHF diagnosis, has not received an echo for over 3 years. ECHO essentially unremarkable. Although nuclear stress test shows EF of 41%. Supplemental O2 as needed, patient requiring 2LNC. Does not use home O2 at home. Placed on cardiac telemetry for monitoring of any arrhythmias. Chest pain has now resolved. Was given aspirin in ED. Control pain, IV narcotics available as needed per pain scale. Patient underwent nuclear stress test this morning, results called to Dr. Pugh, demurrage man on-call, who ordered for transfer, heparin drip and cardiac catheterization tomorrow morning. Keep n.p.o. after midnight. Started on beta- crissy. Patient is stable at this time and agreeable to the plan. Hypertension, chronic: Continue home medications. Monitor BP trends. Hyperlipidemia, chronic: Continue home statin. DVT prophylaxis: SCDs. Hold Lovenox. Start on Heparin gtt. Problem Qualifiers (1) Chest pain: Qualified Codes: R07.9 - Chest pain, unspecified (2) CHF exacerbation: Qualified Codes: I50.9 - Heart failure, unspecified Jannette Burger Jun 27, 2017 15:56
[2017-06-27 16:00] VITALS: BP 133/64; PULSE 86; RESP 18; TEMP 97; O2SAT 90
[2017-06-27] MEDS ORDERED: HEPARIN-D5W 25,000 U/250 ML 250 ML IV SCH (16:00)
[2017-06-27] MEDS ORDERED: PILL SPLITTER OTHER PRN (16:00)
[2017-06-27 16:10] LABS: HEMATOCRIT 31.9 % (35.0-46.0); HEMOGLOBIN 9.9 GM/DL (11.6-15.3); MEAN CELL VOLUME 69.7 FL (80.0-100.0); MEAN CORPUSCULAR HEMOGLOBIN 21.6 PG (27.0-34.0); MEAN PLATELET VOLUME 7.3 FL (7.0-11.0); PLATELET COUNT 393 TH/MM3 (150-450); RED BLOOD COUNT 4.58 MIL/MM3 (4.00-5.30); RED CELL DISTRIBUTION WIDTH 18.1 % (11.6-17.2); WHITE BLOOD COUNT 11.3 TH/MM3 (4.0-11.0)
[2017-06-27 16:14] LABS: INTERNATIONAL NORMALIZED RATIO 1.1 RATIO; PROTHROMBIN TIME - PATIENT 10.7 SEC (9.8-11.6)
--- NOTE | 2017-06-27 18:18 | EKG ---
Date Performed: 06/26/2017 Time Performed: 11:35:40 PTAGE: 77 years EKG: SINUS TACHYCARDIA WITH FIRST DEGREE AV BLOCK INTRAVENTRICULAR CONDUCTION DELAY INFERIOR SIGRID CARDIAL INFARCTION ABNORMAL ECG NO PREVIOUS TRACING DOCTOR: Ebony Batista Interpretating Date/Time 06/27/2017 18:14:20
--- NOTE | 2017-06-27 18:43 | EKG ---
Date Performed: 06/26/2017 Time Performed: 21:41:15 PTAGE: 77 years EKG: ATRIAL FIBRILLATION WITH RAPID VENTRICULAR RESPONSE MARKED LEFT AXIS DEVIATION INTRAVENTRIC ULAR CONDUCTION DELAY Compared to previous tracing, the patient has developed atrial fibrillation wit h a controlled ventricular response ABNORMAL ECG PREVIOUS TRACING : 06/26/2017 16.25 DOCTOR: Ebony Batista Interpretating Date/Time 06/27/2017 18:42:49
--- NOTE | 2017-06-27 18:43 | EKG ---
Date Performed: 06/26/2017 Time Performed: 16:25:02 PTAGE: 77 years EKG: Sinus rhythm WITH FIRST DEGREE AV BLOCK MARKED LEFT AXIS DEVIATION INTRAVENTRICULAR CONDUCTION DELAY Compared to previous tracing the criteria for the questionable old inferior wall infarct are no longer evident AB NORMAL ECG PREVIOUS TRACING : 06/26/2017 11.35 DOCTOR: Ebony Batista Interpretating Date/Time 06/27/2017 18:42:09
[2017-06-27 20:00] VITALS: BP 184/80; PULSE 105; RESP 18; TEMP 98.1; O2SAT 93
[2017-06-27] MEDS: PRAVASTATIN SOD 10 MG TAB PO SCH (21:50)
[2017-06-27] MEDS: DILTIAZEM-CD 240 MG CAP ER PO SCH (21:50)
[2017-06-27] MEDS: METOPROLOL TARTRATE 25 MG TAB PO SCH (21:52)
[2017-06-28] VITALS (13 sets, daily range): BP systolic 108–155; BP diastolic 59–84; PULSE 74–104; RESP 17–20; TEMP 97.9–99.1; O2SAT 92–96
--- NOTE | 2017-06-28 08:58 | HHI.PR ---
Subjective Remarks This is a pleasant 77 y/o Female with Hypertension, Hyperlipidemia, GERD, CHF, who was admitted to [facility] transferred to [facility] to continue her management, also complaint of bilateral leg edema. Chest pain, status post Nuclear Stress Test. Report reviewed, showing ischemia in the mid septal wall. Results called to on-call computer operator Dr. Pugh who requests patient be transferred to the [facility] to undergo cardiac catheterization today, started on Heparin drip. 06/28: with Diagnosis of Unstable angina, status post BRIAN x 2 to RCA, Acute heart failure possibly due to ischemia, status pos PCI with stent placement x 2 06/28/17, due to that Brilinta is too expensive Doctor Melvin will switch to Plavix and Aspirin, no nausea vomit or diarrhea awaiting for human factors specialist for discharge. Objective Vital Signs Date Time Temp Pulse Resp B/P (MAP) Pulse Ox O2 Delivery O2 Flow Rate FiO2 06/28/17 06:00 74 06/28/17 05:00 76 06/28/17 04:00 85 06/28/17 04:00 97.9 87 20 117/60 (79) 94 06/28/17 03:00 74 06/28/17 02:00 82 06/28/17 01:00 94 06/28/17 00:00 99 06/28/17 00:00 98.6 104 20 136/73 (94) 92 06/27/17 20:00 98.1 105 18 184/80 (114) 93 06/27/17 16:00 97.0 86 18 133/64 (87) 90 I/O 06/27/17 06/27/17 06/27/17 06/28/17 06/28/17 06/28/17 07:00 15:00 23:00 07:00 15:00 23:00 Intake Total 240 ml 120 ml Balance 240 ml 120 ml Intake Oral 240 ml 120 ml # Voids 4 1 2 2 # Bowel Movements 1 1 Result Diagram: 06/27/17 1550 06/27/17 0533 Imaging Last Impressions Myocardial Perfusion Scan Nuc Med 06/27/17 0000 Signed Impressions: Service Date/Time: Tuesday, June 27, 2017 12:01 - CONCLUSION: 1. Findings suggesting focal stress-induced ischemia in the mid to inferior septal wall. 2. Global hypokinesia with more prominent decreased wall motion in the inferior wall. Reduced EF of 41%%. RISK CATEGORY: Intermediate (1-3%% Annual Mortality Rate) Chase Jerez MD Chest X-Ray 06/26/17 1134 Signed Impressions: Service Date/Time: Monday, June 26, 2017 11:51 - CONCLUSION: 1. Basilar atelectasis with suspected vascular congestion. Cardiomegaly. No consolidation or significant effusion. Prabhjot Xie MD Procedures Stress Test 06/28: with Diagnosis of Unstable angina, status post BRIAN x 2 to RCA, Acute heart failure possibly due to ischemia, status pos PCI with stent placement x 2 06/28/17, due to that Brilinta is too expensive Doctor Melvin Other Results Laboratory Tests Test 06/26/17 11:30 06/26/17 13:35 06/26/17 21:49 06/27/17 05:33 Basophilic Stippling FAINT Ovalocytes 1+ Rouleau PRESENT Total Creatine Kinase 50 U/L B-Type Natriuretic Peptide 51 PG/ML Urine Collection Type CLEAN CATCH Urine Color YELLOW Urine Turbidity CLEAR Urine pH 6.0 Urine Specific [place] 1.010 Urine Protein NEG mg/dL Urine Glucose (UA) NEG mg/dL Urine Ketones NEG mg/dL Urine Occult Blood NEG Urine Nitrite NEG Urine Bilirubin NEG Urine Urobilinogen 0.2 MG/DL Urine Leukocyte Esterase NEG Urine WBC 0-2 /hpf Urine Squamous Epithelial Cells 0-5 /hpf Urine Amorphous Sediment FEW Microscopic Urinalysis Comment MUCOUS PRESENT Urine Collection Time 1335 Troponin I LESS THAN 0.02 NG/ML Neutrophils (%) (Auto) 75.1 % Lymphocytes (%) (Auto) 16.4 % Monocytes (%) (Auto) 7.1 % Eosinophils (%) (Auto) 1.2 % Basophils (%) (Auto) 0.2 % Neutrophils # (Auto) 6.5 TH/MM3 Lymphocytes # (Auto) 1.4 TH/MM3 Monocytes # (Auto) 0.6 TH/MM3 Eosinophils # (Auto) 0.1 TH/MM3 Basophils # (Auto) 0.0 TH/MM3 CBC Comment AUTO DIFF Differential Comment AUTO DIFF CONFIRMED Platelet Estimate NORMAL Platelet Morphology Comment NORMAL Blood Urea Nitrogen 16 MG/DL Creatinine 0.46 MG/DL Random Glucose 114 MG/DL Total Protein 6.9 GM/DL Albumin 3.0 GM/DL Calcium Level 8.4 MG/DL Alkaline Phosphatase 94 U/L Aspartate Amino Transf (AST/SGOT) 15 U/L Alanine Aminotransferase (ALT/SGPT) 25 U/L Total Bilirubin 0.5 MG/DL Sodium Level 141 MEQ/L Potassium Level 3.6 MEQ/L Chloride Level 103 MEQ/L Carbon Dioxide Level 31.2 MEQ/L Anion Gap 7 MEQ/L Estimat Glomerular Filtration Rate 132 ML/MIN Test 06/27/17 15:50 06/28/17 01:50 White Blood Count 11.3 TH/MM3 Red Blood Count 4.58 MIL/MM3 Hemoglobin 9.9 GM/DL Hematocrit 31.9 % Mean Corpuscular Volume 69.7 FL Mean Corpuscular Hemoglobin 21.6 PG Mean Corpuscular Hemoglobin Concent 31.0 % Red Cell Distribution Width 18.1 % Platelet Count 393 TH/MM3 Mean Platelet Volume 7.3 FL Prothrombin Time 10.7 SEC Prothromb Time International Ratio 1.1 RATIO Activated Partial Thromboplast Time 28.4 SEC Objective Remarks GENERAL: Well-developed, Morbid obese patient. SKIN: Warm and dry. No rash. HEAD: Normocephalic. Atraumatic. EYES: Pupils equal and round. No scleral icterus. No injection or drainage. ENT: No nasal bleeding or discharge. Mucous membranes pink and moist. NECK: Supple. Trachea midline. CARDIOVASCULAR: Regular rate and rhythm. S1, S2 noted. 2/6 systolic murmur. No reproducible chest pain to palpation. RESPIRATORY: No accessory muscle use. Clear to auscultation. Breath sounds equal bilaterally. GASTROINTESTINAL: Abdomen soft, non-tender, nondistended. Normoactive bowel sounds x4. Extremities: Bilateral 2+ pitting edema. NEUROLOGICAL: Awake and alert. No obvious cranial nerve deficits. PSYCHIATRIC: Appropriate mood and affect; insight and judgment normal. Medications and IVs Current Medications Medications (Trade) Dose Ordered Sig/Van Route Start Time Stop Time Status Last Admin (NS Flush) 2 ml UNSCH PRN IV FLUSH 06/26/17 15:15 (NS Flush) 2 ml BID IV FLUSH 06/26/17 21:00 06/27/17 08:36 (Zofran Inj) 4 mg Q6H PRN IVP 06/26/17 15:15 (Lovenox Inj) 40 mg Q24H SQ 06/26/17 16:00 Future Hold 06/26/17 16:12 (Morphine Inj) 2 mg Q3H PRN IV PUSH 06/26/17 15:15 (Morphine Inj) 4 mg Q3H PRN IV PUSH 06/26/17 15:15 (Narcan Inj) 0.4 mg UNSCH PRN IV PUSH 06/26/17 15:15 (Milk Of Magnesia Liq) 30 ml Q12H PRN PO 06/26/17 15:15 (Vitamin D3) 5,000 units DAILY PO 06/27/17 09:00 06/27/17 08:37 (Cardizem Cd) 240 mg HS PO 06/26/17 21:00 06/27/17 21:50 (Cozaar) 25 mg DAILY PO 06/27/17 09:00 06/27/17 08:38 (Theragran M Tab) 1 tab DAILY PO 06/27/17 09:00 06/27/17 08:37 (Protonix) 40 mg DAILY PO 06/27/17 09:00 06/27/17 08:37 (Pravachol) 10 mg HS PO 06/26/17 21:00 06/27/17 21:50 (Lasix Inj) 40 mg DAILY IV PUSH 06/27/17 09:00 06/27/17 08:38 (KCl) 10 meq DAILY PO 06/27/17 09:00 06/27/17 08:37 Heparin Sodium/ Dextrose 250 ml @ 10 mls/hr TITRATE IV 06/27/17 16:00 06/27/17 17:50 (Lopressor) 12.5 mg Q12HR PO 06/27/17 21:00 06/27/17 21:52 (Pill Splitter) 1 ea UNSCH PRN OTHER 06/27/17 16:00 A/P Assessment and Plan (1) Chest pain ICD Code: R07.9 - Chest pain, unspecified Status: Acute (2) CHF exacerbation ICD Code: I50.9 - Heart failure, unspecified Status: Acute Assessment and Plan This is a pleasant 77-year-old female patient with a known medical history of hypertension, hypercholesterolemia, GERD who presented to the ED with complaints of worsening dyspnea with associated chest pain. Chest pain ruled out acute coronary event, rule out coronary artery disease Congestive heart failure questionable exacerbation Chest x-ray reviewed showing basilar atelectasis with suspected vascular congestion. Cardiomegaly. No consolidation or significant effusion. BNP is 51. Given Lasix 40 mg IV 1 in ED. Continue scheduled. Placed on potassium supplementation. Monitor BMP. CBC and BMP reviewed, essentially unremarkable. Serial EKGs and serial troponins have been ordered for ruling out ACS purposes. Troponins flat. EKG reviewed showing left bundle branch block with controlled heart rate. Patient is unaware of CHF diagnosis, has not received an echo for over 3 years. ECHO essentially unremarkable. Although nuclear stress test shows EF of 41%. Supplemental O2 as needed, patient requiring 2LNC. Does not use home O2 at home. Patient underwent nuclear stress test this morning, results called to Dr. Pugh, computer operator on-call, who ordered for transfer, heparin drip and cardiac catheterization today 06/28: with Diagnosis of Unstable angina, status post BRIAN x 2 to RCA , Acute heart failure possibly due to ischemia, status pos PCI with stent placement x 2 06/28/17, due to that Brilinta is too expensive Doctor Melvin will switch to Plavix and Aspirin. Hypertension, chronic: Continue home medications. Monitor BP trends. Hyperlipidemia, chronic: Continue home statin. Morbid Obesity strongly recommended for diet and exercise. DVT prophylaxis: SCDs. Hold Lovenox. Start on Heparin gtt. Discharge Planning Once cleared by human factors specialist. Jose Alfredo Torres MD Jun 28, 2017 08:58
[2017-06-28] MEDS: FUROSEMIDE 40 MG/4 ML VIAL IV PUSH SCH (09:47)
[2017-06-28] MEDS: POTASSIUM CHLORIDE 10 MEQ CONTROLLED RELEASE TAB PO SCH (09:48)
[2017-06-28] MEDS: PANTOPRAZOLE SOD 40 MG DELAYED RELEASE TAB PO SCH (09:49)
[2017-06-28] MEDS: CHOLECALCIFEROL (VIT D3) 5000 UNIT CAP PO SCH (09:50)
[2017-06-28] MEDS: LOSARTAN 25 MG TAB PO SCH (09:50)
[2017-06-28] MEDS: MULTIVITAMINS/MINERALS THERAPEUTIC TAB PO SCH (09:50)
[2017-06-28] MEDS: METOPROLOL TARTRATE 25 MG TAB PO SCH ×2 (09:51→20:03)
[2017-06-28] MEDS: SODIUM CHLORIDE 0.9% FLUSH 10 ML FLUSH IV FLUSH SCH ×2 (09:51→20:03)
[2017-06-28] MEDS ORDERED: HEPARIN SODIUM - IV 10,000 UNITS/10 ML VIAL ONE (11:32)
[2017-06-28] MEDS ORDERED: HEPARIN-NS/PF FLUSH BAG 2,000 ML IV FLUSH ONE (11:32)
[2017-06-28] MEDS ORDERED: NITROGLYCERIN INJ 5 ML ONE (11:32)
[2017-06-28] MEDS ORDERED: VERAPAMIL HCL 5 MG/2 ML VIAL ONE (11:32)
[2017-06-28] MEDS ORDERED: MIDAZOLAM HCL 2 MG/2 ML VIAL ONE (11:32)
[2017-06-28] MEDS ORDERED: ASPIRIN 325 MG TAB ONE (13:23)
[2017-06-28] MEDS ORDERED: TICAGRELOR 90 MG TAB PO ONE (13:23)
[2017-06-28] MEDS ORDERED: MISC INFORMATION XX ONE ×2 (13:45)
[2017-06-28] MEDS ORDERED: ATROPINE SULFATE 1 MG/ML VIAL IV PUSH PRN (13:45)
[2017-06-28] MEDS ORDERED: SODIUM CHLOR 0.9% 250 ML INJ 250 ML IV PRN (13:45)
--- NOTE | 2017-06-28 13:45 | CATHPROC ---
[facility] HIS Report Study Information Study Number Admission Scheduled Start Study Start [id number] Jun 26 2017 2:07PM 06/28/2017 Jun 28 2017 11:36AM [place] [facility] Cardiac Catheterization Admit Source Facility Department Other [facility] Nurse Physician and Clinical Staff Initial MD Charles, Felice Metal Window Frame Maker Rosio Addison,LAURITA Recorder Edy SHAY, Gorge Limon RCIS(BS) Procedures Performed Procedure Location (Site) Vessel Name Coronary Angiograms LCA Left Coronary Coronary Angiograms RCA Right Coronary Drug Eluting Inflatio RCA Dist Right Coronary Drug Eluting Inflatio RCA Mid Right Coronary L Heart Cath PTCA RCA Dist Right Coronary PTCA RCA Mid Right Coronary Wire insertion Fem Art (right) Femoral Art Equipment Time Station Installer And Repairer Description Size Mfg Part Number Used/Scraped WIRE, BALANCE MIDDLEWEIGHT [id number] 12:29 [employer] 190CM Used 190CM *[id number] TRANSDUCER, TRUWAVE [id number] 12:02 RAYO BUCKLEY * Used W/STOCKCOCK *[id number] 12:20 [facility] PROBE COVERS, THERMOMETER [id number] Used INTRODUCER SET, 12:46 [employer] FR 5 [id number] *[id number] Used MICROPUNCTURE, STIFFENED [phone] *[id number] [phone] *[id number] *[id number] 12:02 [facility] PACK, CCL CUSTOM * Used *[id number] 12:02 [employer] [facility] [employer] SUPPORT, ARTERIAL ADULT [id number] *[id number] Used [id number] 12:58 [employer] BALLOON, 2.0 X 10MM EUPHORA 10MM Used *[id number] BALLOON, 2.75 X 15MM NC [id number] 13:14 [employer] 15MM Used EUPHORA *[id number] 12:28 [employer] JL 3.5 DXTERITY CATHETER FR 5 Used *[id number] 13:03 [employer] STENT, 2.25 12MM BERE 2.25 12MM Used *[id number] 13:14 [employer] STENT, 2.75 18MM BERE 2.75 18MM Used *[id number] 13:00 [employer] 30 SEGUNDO INDEFLATOR Used *[id number] BAND, RADIAL COMPRESSION TR [id number] 13:19 [employer] 29CM Used LARGE 29 *[id number] 12:02 [employer] WIRE, EXCHANGE 260CM 3MMJ 260CM Used *[id number] 12:02 [employer]AM[employer] MANIFOLD, 4 PORT * Used *[id number] 12:02 [employer] OMNIPAQUE, 350 MG, 150ML 150ML [id number] Used [id number] 12:02 [employer],WARM AIR CCL * Used *[id number] 12:46 [employer] SHEATH, FR6 TERUMO (10CM) FR 6 Used *[id number] SHEATH, FR6 TRANSRADIAL [id number] 12:21 [employer]ICAL FR 6 Used SLENDER 10CM *[id number] SHEATH, FR6 TRANSRADIAL [id number] 12:02 [employer] FR 6 Used SLENDER 10CM *[id number] Equipment Model, Serial, Lot Number and Expiration Data Description Model Number Serial Number Lot Number Expiration Date INTRODUCER SET, [id number] 05-18-2020 MICROPUNCTURE, STIFFENED [id number] STENT, 2.25 12MM BERE [id number] 02-12-2019 8UX STENT, 2.75 18MM BERE [id number] 12-01-2018 History: Current Medications Medication Dosage/Unit Route Frequency Last Date/Time Taken COZAAR Statins (any) Beta Darian CARDIZEM ASA History: Allergies Allergy Reaction NKDA History: Risk Factors Family History of Hypertension Dyslipidemia Previous HI Previous Heart Failure Premature CAD Yes Yes Yes Yes Yes Prior Valve Prior PCI Prior CABG Surgery No No No Cerebrovascular Peripheral Artery Chronic Lung On Dialysis Diabetes Diabetes Therapy Disease Disease Disease No No No No Yes Diet Labs Hgb (g/dl) Hct (%) WBC (l/cumm) 11.60-17.00 35.00-51.00 4.00-11.00 9.9 31.9 11.3 Glucose (mg/dl) BUN (mg/dl) Creatinine (mg/dl) BUN:Creatinine (1:x) 74.00-106.00 7.00-18.00 0.50-1.30 10.00-20.00 132 16 0.5 32 Na (meq/l) K (meq/l) 136.00-145.00 3.50-5.10 141 3.6 INR (PTT:PT) 0.90-1.10 1.1 Troponin I (ng/ml) 0.02-0.05 0.02 Medication Medication Total Dose (Bolus/Oral) Medication Total Dosage/Unit 1% XYLOCAINE 25 mL ASPIRIN 325 mg BRILINTA 180 mg FENTANYL 25 mcg HEPARIN 7000 units NTG (IC) 150 mcg RADIAL COCKTAIL 5 mL (Bolus) VERSED 0.5 mg Medications (Bolus/Oral) Medication Time Given Dosage/Unit Administered By Reason VERSED 06/28/2017 12:16:05 PM 0.5 mg Rosio Addison 0.5 mg VERSED given in lab by Rosio Addison, RN in Right Antecubital via Peripheral IV. Ordered by Felice Charles 1% XYLOCAINE 06/28/2017 12:16:32 PM 5 mL Felice Charles 5 mL 1% XYLOCAINE given in lab by Felice Charles in Right Radial via Subcutaneous. Ordered by Felice Quijano FENTANYL 06/28/2017 12:17:19 PM 25 mcg Rosio Addison 25 mcg FENTANYL given in lab by Rosio Addison, RN in Right Antecubital via Peripheral IV. Ordered b y Felice Charles RADIAL COCKTAIL 06/28/2017 12:26:27 PM 5 mL (Bolus) Felice Charles 5 mL (Bolus) RADIAL COCKTAIL given in lab by Felice Charles via Radial. Using [Solution Name]. O rdered by Felice Charles HEPARIN 06/28/2017 12:33:34 PM 7000 units Rosio Addison 7000 units HEPARIN given in lab by Rosio Addison, RN via Peripheral IV. Ordered by Jin Charles 1% XYLOCAINE 06/28/2017 12:49:40 PM 20 mL Felice Charles 20 mL 1% XYLOCAINE given in lab by Felice Charles in Right Groin via Subcutaneous. Ordered by Felice Quijano NTG (IC) 06/28/2017 1:17:24 PM 150 mcg Felice Charles 150 mcg NTG (IC) given in lab by Felice Charles in Right Groin via Intra-coronary. Ordered by Felice Quijano BRILINTA 06/28/2017 1:25:39 PM 180 mg Rosio Addison 180 mg BRILINTA given in lab by Rosio Addison RN. Ordered by Felice Charles ASPIRIN 06/28/2017 1:25:55 PM 325 mg Rosio Addison 325 mg ASPIRIN given in lab by Rosio Addison RN via Subcutaneous. Ordered by Felice Charles Medication (Drip) Medication Time Given Dosage/Unit Concentration/Unit Diluent (ml) Solution IV Solutions 06/28/2017 11:36:12 AM 0 mL (IV) NaCl .9 IV Solutions given in lab by Rosio Addison RN in Right Antecubital via Peripheral IV. Pump/Drip Fl ow = 30 ml/hr using NaCl .9. Reason: As per physicians verbal order. Initial Case Assessment Cardiovascular HR NIBP 96 144/62 Edema Present Skin color Skin Moderate Normal Warm Dry Circulatory - Right Pulses Dorsalis Pedis Femoral 1 1 Scale (0,1,2,3,4,d) Circulatory - Left Pulses Dorsalis Pedis Femoral 1 1 Scale (0,1,2,3,4,d) Neurological State Oriented to time-place- Alert Moves all extremities person Respiration - General SpO2 (%) 85 Chronological Log Time Study Chronological Log 11:36:03 Patient arrived via Bed. 11:36:04 Patient Name, D.O.B, / Armband Verified By R.N. 11:36:04 Consent signed by the physician and the patient and verified by the Corrections Nurse staff. 11:36:05 Pre-op and post- op instructions given; patient acknowledges understanding of instructions. 11:36:06 Presedation assessment performed by Corrections Nurse RN. 11:36:07 Allens test performed on the right radial and ulnar artery. 11:36:07 Immediate Presedation assesment performed by physician. 11:36:08 Patient has been NPO for More than 6Hrs. 11:36:09 Skin Breakdown- Rash noted bilateral groins 11:36:10 Patient Warmer Placed on the Table. 11:36:10 Tita Prominences Protected 11:36:12 A # 20 IV was noted in the Antecubital (right). Grade = 0 IV Solutions given in lab by Rosio Addison RN in Right Antecubital via Peripheral IV. Pump/D rip Flow = 30 ml/hr 11:36:12 using NaCl .9. Reason: As per physicians verbal order. 11:36:13 History and physical on the chart. Vitals capture started with the following parameters, Patient=Adult, Interval=5 min, Initial Pr wigvpq=122 mmHg, 11:47:30 Deflation Rate=5 mmHg, Cuff placed on Left Leg 11:47:35 Reference ECG taken 11:48:10 HR=95 bpm, WWXC=054/62 mmhg, SpO2=86.0 %, Resp=15 B/min, Pain=0, Attila=10, Cruz=2 11:53:11 HR=94 bpm, GSTX=984/70 mmhg, SpO2=82.0 %, Resp=10 B/min, Pain=0, Cruz=2 Assessment: Initial Case, HR=96 BPM, MXFX=642/62 mmhg, Edema=Mod, Color=Normal, Skin = Warm, Dr y Right Pulses: Rigo Ped=1, Femoral=1 11:54:25 Left Pulses: Rigo Ped=1, Femoral=1 Neurological: State=Alert, Ox3, BARRERA Respiration: SpO2=85 % 11:55:25 Right Radial and groin(s) prepped with 2% chlorhexidine, and draped after a 3 min. waiting time. 11:56:20 MD paged 11:58:08 HR=94 bpm, HTKI=080/72 mmhg, SpO2=93.0 %, Resp=17 B/min, Pain=0, Cruz=2 12:00:50 Pressure channel 1 zeroed. 12:03:09 HR=89 bpm, WBLF=250/70 mmhg, SpO2=96.0 %, Resp=10 B/min, Pain=0, Cruz=2 12:08:06 HR=95 bpm, YGEK=051/70 mmhg, SpO2=95.0 %, Resp=16 B/min, Pain=0, Cruz=2 12:09:07 MD responded 12:10:24 MD arrived. 12:13:56 HR=70 bpm, FZOI=072/64 mmhg, SpO2=98.0 %, Resp=15 B/min, Pain=0, Cruz=2 Time Out. Correct patient, correct procedure, correct physician, power injector not loaded with contrast with surgical 12:15:12 team present. Time Out Concurred by MD and individual staff in procedure. 12:15:46 Case Start 0.5 mg VERSED given in lab by Rosio Addison, RN in Right Antecubital via Peripheral IV. Order ed by Felice Charles 12:16:05 G. 5 mL 1% XYLOCAINE given in lab by Felice Charles in Right Radial via Subcutaneous. Ordered by Melvin 12:16:32 Felice Wright 25 mcg FENTANYL given in lab by Rosio Addison, RN in Right Antecubital via Peripheral IV. Ord ered by Melvin, 12:17:19 Felice Wright 12:18:08 HR=69 bpm, CEQJ=139/62 mmhg, SpO2=93.0 %, Resp=25 B/min, Pain=0, Cruz=2 12:19:30 Access site was Right Radial Artery. A SHEATH, FR6 TRANSRADIAL SLENDER 10CM FR 6 was advanced into the Fem Art (right) using the Per cutaneous 12:21:22 technique. A JR 4.0 INFINITI CATHETER FR 5 was advanced over a wire. OMNIPAQUE, 350 MG, 150ML 150ML was us ed for 12:22:29 injections. 12:23:13 HR=67 bpm, RQEZ=981/49 mmhg, SpO2=91.0 %, Resp=25 B/min, Pain=0, Cruz=2 Recorded Pressure: LV, HR=72, Condition=Condition 1 12:25:08 (Left Ventricle) LV 109/17/25 Recorded Pressure: LV, Ao, HR=71, Condition=Condition 1 12:25:24 (Left Ventricle) LV 119/0/18, (Aorta) Ao 119/46/75 5 mL (Bolus) RADIAL COCKTAIL given in lab by Felice Charles via Radial. Using [Solution Na me]. Ordered by 12:26:27 Felice Charles 12:26:54 The RCA was injected and visualized at various angles. OMNIPAQUE, 350 MG, 150ML 150ML used . After removing the current catheter a JL 3.5 DXTERITY CATHETER FR 5 was advanced over a WIRE, E XCHANGE 260CM 12:27:20 3MMJ 260CM. 12:28:08 HR=69 bpm, MNIS=240/53 mmhg, SpO2=90.0 %, Resp=25 B/min, Pain=0, Cruz=2 12:29:00 The LCA was injected and visualized at various angles. OMNIPAQUE, 350 MG, 150ML 150ML used . After removing the current catheter a JR 4.0 GUIDE CATHETER FR 6 was advanced over a WIRE, EXCH AMI 260CM 12:30:13 3MMJ 260CM. 12:33:09 HR=70 bpm, TRNW=478/55 mmhg, SpO2=94.0 %, Resp=24 B/min, Pain=0, Cruz=2 12:33:34 7000 units HEPARIN given in lab by Rosio Addison, LAURITA via Peripheral IV. Ordered by Felice Prince After removing the current catheter a 3DRC GUIDE CATHETER FR 6 was advanced over a WIRE, EXCHAN GE 260CM 12:37:22 3MMJ 260CM. 12:38:12 HR=88 bpm, OMTA=212/65 mmhg, SpO2=95.0 %, Resp=22 B/min, Pain=0, Cruz=2 Recorded Pressure: LV, HR=68, Condition=Condition 1 12:40:32 (Left Ventricle) LV 119/13/18 Recorded Pressure: LV, Ao, HR=78, Condition=Condition 1 12:40:45 (Left Ventricle) LV 121/13/19, (Aorta) Ao 113/54/79 12:42:14 The previous wire was exchanged for a WIRE, BALANCE MIDDLEWEIGHT 190CM 190CM. 12:43:11 HR=92 bpm, ABJK=974/67 mmhg, SpO2=96.0 %, Resp=18 B/min, Pain=0, Cruz=2 12:45:29 Wire removed 12:45:32 Catheter was removed 12:48:13 HR=75 bpm, QDLO=916/63 mmhg, SpO2=95.0 %, Resp=19 B/min, Pain=0, Cruz=2 20 mL 1% XYLOCAINE given in lab by Felice Charles in Right Groin via Subcutaneous. Ordered by Melvin 12:49:40 Felice Wright 12:50:10 Access site was Right Femoral Artery. A INTRODUCER SET, MICROPUNCTURE, STIFFENED FR 5 was advanced into the Fem Art (right) using the 12:52:57 Percutaneous technique. 12:53:12 HR=70 bpm, UPUQ=772/65 mmhg, SpO2=95.0 %, Resp=21 B/min, Pain=0, Cruz=2 A SHEATH, FR6 TERUMO (10CM) FR 6 was exchanged in the Fem Art (right). This was necessary in or isha to 12:53:12 accomodate a larger catheter. 12:54:02 An injection in the Fem Art (right) was made through the SHEATH, FR6 TERUMO (10CM) FR 6. 12:54:38 Activated Clotting Time Drawn A JR 4.0 GUIDE CATHETER FR 6 was advanced over a wire. OMNIPAQUE, 350 MG, 150ML 150ML was used for 12:54:38 injections. 12:56:00 A WIRE, BALANCE MIDDLEWEIGHT 190CM 190CM was inserted via Fem Art (right). 12:57:00 Interventional wire has crossed the lesion A BALLOON, 2.0 X 10MM EUPHORA 10MM was inserted over WIRE, BALANCE MIDDLEWEIGHT 190CM 190CM via the 12:57:36 RCA Dist. 12:58:15 HR=71 bpm, RDDX=964/67 mmhg, SpO2=95.0 %, Resp=24 B/min, Pain=0, Cruz=2 12:59:35 ACT (Normal Range 90-180) = 314 A BALLOON, 2.0 X 10MM EUPHORA 10MM over a WIRE, BALANCE MIDDLEWEIGHT 190CM 190CM in the RCA Dis t was 13:00:04 inflated using a 30 SEGUNDO INDEFLATOR at 10 segundo for 20 sec. A BALLOON, 2.0 X 10MM EUPHORA 10MM over a WIRE, BALANCE MIDDLEWEIGHT 190CM 190CM in the RCA Dis t was 13:02:00 inflated using a 30 SEGUNDO INDEFLATOR at 8 segundo for 10 sec. 13:03:16 HR=68 bpm, GQQV=399/61 mmhg, SpO2=98.0 %, Resp=22 B/min, Pain=0, Cruz=2 13:04:04 Balloon Removed. A STENT, 2.25 12MM BERE 2.25 12MM was advanced through a JR 4.0 GUIDE CATHETER FR 6 over a WIRE , BALANCE 13:04:47 MIDDLEWEIGHT 190CM 190CM. A STENT, 2.25 12MM BERE 2.25 12MM was deployed using a 30 SEGUNDO INDEFLATOR at 12 atmospheres for 30 seconds 13:05:40 in the RCA Dist. 13:07:53 Delivery device removed 13:08:17 HR=69 bpm, BINK=781/61 mmhg, SpO2=98.0 %, Resp=20 B/min, Pain=0, Cruz=2 A STENT, 2.75 18MM BERE 2.75 18MM was advanced through a JR 4.0 GUIDE CATHETER FR 6 over a WIRE , BALANCE 13:12:14 MIDDLEWEIGHT 190CM 190CM. 13:13:18 HR=82 bpm, LFNM=896/72 mmhg, SpO2=98.0 %, Resp=32 B/min, Pain=0, Cruz=2 A STENT, 2.75 18MM BERE 2.75 18MM was deployed using a 30 SEGUNDO INDEFLATOR at 14 atmospheres for 30 seconds 13:14:23 in the RCA Mid. 13:14:34 Delivery device removed A BALLOON, 2.75 X 15MM NC EUPHORA 15MM was inserted over WIRE, BALANCE MIDDLEWEIGHT 190CM 190CM via 13:14:42 the RCA Mid. A BALLOON, 2.75 X 15MM NC EUPHORA 15MM over a WIRE, BALANCE MIDDLEWEIGHT 190CM 190CM in the RCA Mid 13:14:48 was inflated using a 30 SEGUNDO INDEFLATOR at 14 segundo for 24 sec. A BALLOON, 2.75 X 15MM NC EUPHORA 15MM over a WIRE, BALANCE MIDDLEWEIGHT 190CM 190CM in the RC A Mid 13:15:53 was inflated using a 30 SEGUNDO INDEFLATOR at 18 segundo for 18 sec. 150 mcg NTG (IC) given in lab by Felice Charles in Right Groin via Intra-coronary. Ordere d by Felice Charles 13:17:24 G. 13:18:17 HR=82 bpm, NIBP=99/58 mmhg, SpO2=96.0 %, Resp=14 B/min, Pain=0, Cruz=2 13:19:03 Balloon Removed. 13:20:55 Catheter(s) removed without difficulty 13:21:02 Sheath(s) left in place, will be removed in Holding Area 13:21:28 No case complications noted. 13:21:31 Sterile dressing applied to site 13:21:36 Case End 13:23:45 HR=81 bpm, UWCV=101/62 mmhg, SpO2=93.0 %, Resp=20 B/min, Pain=0, Cruz=2 13:24:59 Cine recording checked. 13:25:07 A Left Heart Cath was performed. 13:25:39 180 mg BRILINTA given in lab by Rosio Addison, LAURITA. Ordered by Felice Charles 13:25:55 325 mg ASPIRIN given in lab by Rosio Addison, LAURITA via Subcutaneous. Ordered by Felice Charles Radial Compression Device Used. 12 mLs of air placed in BAND, RADIAL COMPRESSION TR LARGE 29 2 9CM. Affected 13:34:54 hand 98 % O2 saturation. End Study - Contrast Media Used In Study Contrast Total Opened (mL) Total Used (mL) Total Wasted (mL) Omnipaque 150 140 10 End Study - Maximum Contrast Load Max Contrast Load (mL) 1190.9 End Study - Radiation Exposure Fluoro Time (minutes) 19.9 End Study - Patient Disposition Complications Transferred To Interventional Outcome No Corrections Nurse Holding successful
[2017-06-28] MEDS ORDERED: IOHEXOL 350 MG/ML 50 ML BTL (for Cath Lab) OTHER ONE (18:53)
[2017-06-28] MEDS ORDERED: IOHEXOL 350 MG/ML 100 ML BTL (for Cath Lab) OTHER ONE (18:53)
[2017-06-28] MEDS: ATORVASTATIN 80 MG TAB PO SCH (20:03)
[2017-06-28] MEDS: TICAGRELOR 90 MG TAB PO SCH (20:03)
[2017-06-28] MEDS: DILTIAZEM-CD 240 MG CAP ER PO SCH (20:03)
--- NOTE | 2017-06-28 20:09 | TR ---
Date Performed: 06/27/2017 Time Performed: 12:27:20 DOCTOR: Danni Villareal DRUG LIST: CLINICAL HISTORY: ANGINA REASON FOR TEST: Angina REASON FOR ENDING: OBSERVATION: CONCLUSION: Lexiscan stress test was performed under standard four minute protocol. Radionuclid e was injected one minute prior to ending the test. No electrocardiographic abormalities were present to suggest ischemia. Nuclear imaging and interpretation are pending. COMMENTS:
--- NOTE | 2017-06-28 23:31 | MB ---
cc: Felice Charles DO DATE OF CONSULT: 06/28/2017 REASON FOR CONSULTATION: Chest pain, abnormal stress test, congestive heart failure. HISTORY OF PRESENT ILLNESS: Richelle Looney is a pleasant 77-year-old female who presented to [facility] Emergency Room on 06/26/2017 due to worsening dyspnea associated with chest pain. She states that over the last few months she has been having increasing shortness of breath and orthopnea and around 2 weeks ago she started feeling fatigued and her shortness of breath increased. She is unable to work across the room without becoming short of breath. She is unable to perform her activities of daily living without having to rest. Over the past 2-3 days she has also noticed significant chest discomfort which is pressure in nature substernally which is intermittent and seems to come and go with activity. She notes that the pain worsens with walking and is relieved with rest. She underwent a stress test and was found to have inferior ischemia and so she was transferred to [facility] for consideration of cardiac catheterization. In seeing her, she is currently hemodynamically stable without chest pain at rest while on a heparin drip. PAST MEDICAL HISTORY: 1. Dyslipidemia. 2. GERD. 3. Hypertension. 4. Unspecified congestive heart failure. PAST SURGICAL HISTORY: 1. Left knee replacement. 2. Bilateral cataracts. 3. Hernia repair. ALLERGIES: NO KNOWN DRUG ALLERGIES. MEDICATIONS: 1. Zocor 5 mg every night. 2. Metoprolol tartrate 25 mg daily. 3. Diltiazem ER 240 mg every night. 4. Losartan 25 mg daily. 5. Bumex 1 mg daily. 6. Omeprazole 20 mg b.i.d. FAMILY HISTORY: Mother had an DE at the age of 72. Father had an unspecified cancer. SOCIAL HISTORY: The patient denies tobacco, alcohol or illicit drug abuse. REVIEW OF SYSTEMS: Fourteen systems were reviewed including osteopathic. Pertinent positives and negatives above, otherwise negative. PHYSICAL EXAMINATION: VITAL SIGNS: Temperature 97.9, heart rate 83, blood pressure 134/84, respirations 20, pulse ox 94% on 2 liters. GENERAL: The patient appears well in no acute distress. Awake, alert and oriented x 3. HEENT: Extraocular muscles intact. Mucous membranes are moist. NECK: Supple, no JVD at 45 degrees. No carotid bruits heard bilaterally. Upstroke is brisk in nature. HEART: Regular rate and rhythm, positive first and second heart sounds with no added murmurs, rubs or gallops. LUNGS: Have decreased breath sounds bilaterally with minimal rales noted at the bases. ABDOMEN: Soft, nontender, obese. EXTREMITIES: Show significant 2+ pitting edema bilaterally. NEUROLOGIC: No focal deficits. SKIN: Warm, dry and intact. OSTEOPATHIC: Mild lordosis, no painful scoliosis or paraspinal tender points. LABORATORY DATA: Hemoglobin 9.9, hematocrit 31.9, platelets 393. Potassium 3.6, BUN 16, creatinine 0.46. Troponin negative x 3. Electrocardiogram (06/26/2017 at 2141) probable sinus rhythm with sinus arrhythmia and first degree AV block, left axis deviation, left bundle branch block. EKG was read as atrial fibrillation but I believe there is P wave activity with consistent P waves and first degree AV block. IMPRESSION: 1. Congestive heart failure, possibly ischemic in nature. 2. Unstable angina ([place] Anginal Score 3). 3. Hypertension. 4. Hyperlipidemia. 5. Obesity. RECOMMENDATIONS: 1. Ms. Looney appears to have acute heart failure which may be ischemic in nature as well as unstable angina and an abnormal stress test. Because of this she will be recommended cardiac catheterization. 2. Risks, benefits and alternatives have been explained to her and she consented to such. 3. A 2D echocardiogram has been done and shows an ejection fraction of 60% to 65% with no other significant findings. 4. One of her EKGs was read as atrial fibrillation although I believe it is sinus rhythm with first degree AV block and sinus arrhythmia. This may need to be further evaluated during her time here on telemetry as well as possible outpatient rhythm analysis. 5. Further recommendations will be made after coronary visualization. Thank you for allowing me to see Richelle Looney. If there are any questions, please do not hesitate to call. Felice Charles, DO VGP/rt , 10:29 PM , 11:29 PM
[2017-06-29] VITALS (17 sets, daily range): BP systolic 114–150; BP diastolic 56–76; PULSE 76–106; RESP 18; TEMP 97.4–98.3; O2SAT 90–94
[2017-06-29 07:27] LABS: AUTOMATED NEUTROPHIL # 7.4 TH/MM3 (1.8-7.7); BASOPHIL % 0.2 % (0.0-2.0); EOSINOPHIL # 0.1 TH/MM3 (0-0.4); EOSINOPHIL % 1.4 % (0.0-4.0); HEMATOCRIT 28.1 % (35.0-46.0); HEMOGLOBIN 8.3 GM/DL (11.6-15.3); LYMPH % 14.2 % (9.0-44.0); LYMPHOCYTE # 1.4 TH/MM3 (1.0-4.8); MEAN CELL VOLUME 70.2 FL (80.0-100.0); MEAN CORPUSCULAR HEMOGLOBIN 20.6 PG (27.0-34.0); MEAN PLATELET VOLUME 7.9 FL (7.0-11.0); MONO % 7.8 % (0.0-8.0); MONOCYTE # 0.8 TH/MM3 (0-0.9); NEUT % 76.4 % (16.0-70.0); PLATELET COUNT 368 TH/MM3 (150-450); RED BLOOD COUNT 4.01 MIL/MM3 (4.00-5.30); RED CELL DISTRIBUTION WIDTH 18.3 % (11.6-17.2); WHITE BLOOD COUNT 9.7 TH/MM3 (4.0-11.0)
[2017-06-29 07:29] LABS: MEAN CORPUSCULAR HGB CONC 29.4 % (32.0-36.0)
[2017-06-29 07:47] LABS: BICARBONATE 26.9 MEQ/L (21.0-32.0); CREATININE 0.58 MG/DL (0.50-1.00)
[2017-06-29] MEDS: LOSARTAN 25 MG TAB PO SCH (08:57)
[2017-06-29] MEDS: PANTOPRAZOLE SOD 40 MG DELAYED RELEASE TAB PO SCH (08:57)
[2017-06-29] MEDS: MULTIVITAMINS/MINERALS THERAPEUTIC TAB PO SCH (08:57)
[2017-06-29] MEDS: CHOLECALCIFEROL (VIT D3) 5000 UNIT CAP PO SCH (08:57)
[2017-06-29] MEDS: ASPIRIN 81 MG CHEW TAB PO SCH (08:58)
[2017-06-29] MEDS: TICAGRELOR 90 MG TAB PO SCH ×2 (08:58→20:58)
[2017-06-29] MEDS: POTASSIUM CHLORIDE 10 MEQ CONTROLLED RELEASE TAB PO SCH (08:58)
[2017-06-29] MEDS: SODIUM CHLORIDE 0.9% FLUSH 10 ML FLUSH IV FLUSH SCH ×2 (08:58→20:58)
[2017-06-29] MEDS: FUROSEMIDE 40 MG/4 ML VIAL IV PUSH SCH (08:59)
[2017-06-29] MEDS: METOPROLOL TARTRATE 25 MG TAB PO SCH ×2 (09:00→20:57)
--- NOTE | 2017-06-29 12:11 | MA ---
cc: Felice Charles DO 06/29/2017 PROCEDURE: Left heart catheterization, coronary angiogram, [place] drug-eluting stent (2.75 x 18) to the mid RCA, drug-eluting stent (2.25 x 12) to the distal RCA, moderate sedation 65 minutes. PREPROCEDURE DIAGNOSIS: Chest pain, new congestive heart failure, abnormal stress test, unstable angina. POSTPROCEDURE DIAGNOSIS: Unstable angina/congestive heart failure, status post [place] drug-eluting stent (2.75 x 18) to the mid RCA, [place] drug-eluting stent (2.25 x 12) to the distal RCA. MEDICATIONS: Versed 0.5 mg, Fentanyl 25 mcg, heparin 11,800 units, verapamil 2.5 mg, nitro 200 mcg, aspirin 325 mg, Brilinta 180 mg. CONTRAST USED: 140 mL. FLUOROSCOPY: 19.9 minutes. SEDATION: Moderate sedation, 65 minutes. ESTIMATED BLOOD LOSS: 10 mL. PROCEDURAL SUMMARY: Richelle Looney is a pleasant 77-year-old female who presented to [facility] due to chest pain and shortness of breath. She was found to be in acute heart failure, most likely due to ischemia, as well as chest pain concerning for unstable angina. She underwent stress testing, which showed inferior ischemia, and so she was recommended cardiac catheterization. Risks, benefits, and alternatives were explained to her and she consented to such. She was brought to the lab and prepped in the usual sterile fashion. The right radial artery was accessed using modified Seldinger technique and placement of a 5/6 [place] slender sheath. This was easily aspirated and flushed. The JR4 was advanced over a J-wire to the ascending aorta and across the aortic valve for measurement of left ventricular pressure. This was pulled back across the aortic valve, showing no significant gradient of aortic stenosis. The JR4 was used for selective angiography of the right coronary artery system. This was exchanged for a JL3.5, which was used for selective angiography of the left coronary artery system. Please see notes below for intervention. FINDINGS: 1. Left main: Normal-sized vessel which trifurcates into an LAD, ramus and circumflex. 2. LAD: Moderate-sized vessel with no significant disease. It gives off 1 major diagonal with no significant disease. 3. Ramus: Moderate-sized vessel with 20% stenosis in the ostial portion. 4. Left circumflex: Moderate- to large-sized vessel with no significant disease. It gives off 3 obtuse marginals with no significant disease. 5. RCA: Normal-sized vessel with a 99% stenosis in the mid portion as well as a 90% stenosis in the distal portion. Overall, it is a dominant vessel supplying a PDA. 6. LVEDP: 19. INTERVENTION: Because of the significance of disease in the right coronary as well as the patient's symptoms of unstable angina and acute heart failure, I felt it reasonable to intervene on these lesions. A JR4 guide was taken into the aortic root, but due to significant tortuosity, I was unable to engage it, and so I attempted a 3DRC guide but was unable. Due to significant ____ within the radial artery as well as tortuosity up above, I felt that the radial access needed to be aborted. The right femoral artery was accessed using a modified Seldinger technique and placement of a 6-[place] sheath. This was easily aspirated and flushed. The patient was given heparin as an anticoagulant. JR4 guide was engaged into the right coronary artery system. A BMW wire was placed distally. A compliant balloon (2 x 10) was used to pre-dilate the lesions. An [place] drug-eluting stent (2.25 x 12) was placed over the distal lesion and inflated. I felt that this was well opposed and did not need further post-dilatation. An Silver drug-eluting stent (2.75 x 18) was placed over the mid portion of the RCA and inflated. This was post-dilated with a noncompliant balloon (2.75 x 12). The wire was removed. Final angiogram shows 2 well-opposed stents with no perforations or dissections. A radial band was placed over the arteriotomy site for hemostasis. Femoral line was sutured in place with a plan to remove once ACT values were appropriate. The patient left the micro lab analyst cardiovascularly stable. She was loaded with aspirin and Brilinta. IMPRESSION: 1. Unstable angina, status post drug-eluting stent x 2 to the RCA. 2. Acute heart failure, possibly due to ischemia. RECOMMENDATIONS: 1. Ms. Looney underwent PCI as above and will be placed on aspirin and Brilinta therapy. If Brilinta refills are too expensive, she will call my office and be changed to Plavix therapy. 2. She will be watched overnight, and if stable in the morning, discharged with a plan to follow up with me in the office in 2-4 weeks. 3. We will continue her diuresis, although she states that she has been feeling well, and much better than when she came in. 4. We will continue her on her beta crissy and ARB therapy. 5. We will plan on changing her statin therapy to Lipitor and increasing her overall dose. Thank you for allowing me to see Richlele Looney. If there are any questions, please do not hesitate to call. DO ESE Weaver/KAYCE , 12:45 AM , 01:41 AM
--- NOTE | 2017-06-29 16:50 | PD.CARD.PN ---
Subjective Subjective Remarks No events overnight No chest pain Mild SOB with activity Objective Medications Current Medications Medications (Trade) Dose Ordered Sig/Van Route Start Time Stop Time Status Last Admin (NS Flush) 2 ml UNSCH PRN IV FLUSH 06/26/17 15:15 (NS Flush) 2 ml BID IV FLUSH 06/26/17 21:00 06/29/17 08:58 (Zofran Inj) 4 mg Q6H PRN IVP 06/26/17 15:15 (Morphine Inj) 2 mg Q3H PRN IV PUSH 06/26/17 15:15 06/28/17 20:04 (Morphine Inj) 4 mg Q3H PRN IV PUSH 06/26/17 15:15 (Narcan Inj) 0.4 mg UNSCH PRN IV PUSH 06/26/17 15:15 (Milk Of Magnsylvia Liq) 30 ml Q12H PRN PO 06/26/17 15:15 06/29/17 11:09 (Vitamin D3) 5,000 units DAILY PO 06/27/17 09:00 06/29/17 08:57 (Cardizem Cd) 240 mg HS PO 06/26/17 21:00 06/28/17 20:03 (Cozaar) 25 mg DAILY PO 06/27/17 09:00 06/29/17 08:57 (Theragran M Tab) 1 tab DAILY PO 06/27/17 09:00 06/29/17 08:57 (Protonix) 40 mg DAILY PO 06/27/17 09:00 06/29/17 08:57 (Lasix Inj) 40 mg DAILY IV PUSH 06/27/17 09:00 06/29/17 08:59 (KCl) 10 meq DAILY PO 06/27/17 09:00 06/29/17 08:58 (Lopressor) 12.5 mg Q12HR PO 06/27/17 21:00 06/29/17 09:00 (Pill Splitter) 1 ea UNSCH PRN OTHER 06/27/17 16:00 (Aspirin Chew) 81 mg DAILY PO 06/29/17 09:00 06/29/17 08:58 (Brilinta) 90 mg BID PO 06/28/17 21:00 06/29/17 08:58 (Atropine Inj) 0.5 mg UNSCH PRN IV PUSH 06/28/17 13:45 (Lipitor) 80 mg HS PO 06/28/17 21:00 06/28/17 20:03 Vital Signs / I&O Vital Signs Date Time Temp Pulse Resp B/P (MAP) Pulse Ox O2 Delivery O2 Flow Rate FiO2 06/29/17 16:10 99 06/29/17 15:45 97.4 88 18 130/70 (90) 94 06/29/17 15:45 91 06/29/17 12:47 97.9 88 18 145/68 (93) 93 06/29/17 07:51 97.9 97 18 135/76 (95) 93 06/29/17 07:51 78 06/29/17 06:02 82 06/29/17 05:09 84 06/29/17 04:06 88 06/29/17 03:15 97.9 86 18 128/58 (81) 92 06/29/17 02:00 76 06/28/17 23:15 98.9 98 17 108/59 (75) 94 06/28/17 23:15 99 06/28/17 22:00 95 06/28/17 21:00 99 06/28/17 20:45 18 06/28/17 19:15 99.1 87 17 155/82 (106) 96 06/28/17 19:00 99 I/O 06/28/17 06/28/17 06/28/17 06/29/17 06/29/17 06/29/17 07:00 15:00 23:00 07:00 15:00 23:00 Intake Total 120 ml 250 ml 240 ml Output Total 450 ml Balance 120 ml 250 ml -210 ml Intake Oral 120 ml 240 ml IV Total 250 ml Output Urine Total 450 ml # Voids 2 Physical Exam GENERAL: NAD, AAOx3 SKIN: Warm and dry. HEAD: Atraumatic. Normocephalic. EYES: Pupils equal and round. No scleral icterus. No injection or drainage. ENT: No nasal bleeding or discharge. Mucous membranes pink and moist. NECK: Trachea midline. No JVD. CARDIOVASCULAR: Regular rate and rhythm. RESPIRATORY: No accessory muscle use. Decreased breath sounds GASTROINTESTINAL: Abdomen soft, non-tender, nondistended. Hepatic and splenic margins not palpable. MUSCULOSKELETAL: 2+ edema. Right femoral with ecchymosis, no hematoma, no pain with palpation NEUROLOGICAL: Awake and alert. No obvious cranial nerve deficits. Motor grossly within normal limits. Five out of 5 muscle strength in the arms and legs. Normal speech. PSYCHIATRIC: Appropriate mood and affect; insight and judgment normal. Laboratory Laboratory Tests Test 06/29/17 06:06 White Blood Count 9.7 TH/MM3 Red Blood Count 4.01 MIL/MM3 Hemoglobin 8.3 GM/DL Hematocrit 28.1 % Mean Corpuscular Volume 70.2 FL Mean Corpuscular Hemoglobin 20.6 PG Mean Corpuscular Hemoglobin Concent 29.4 % Red Cell Distribution Width 18.3 % Platelet Count 368 TH/MM3 Mean Platelet Volume 7.9 FL Neutrophils (%) (Auto) 76.4 % Lymphocytes (%) (Auto) 14.2 % Monocytes (%) (Auto) 7.8 % Eosinophils (%) (Auto) 1.4 % Basophils (%) (Auto) 0.2 % Neutrophils # (Auto) 7.4 TH/MM3 Lymphocytes # (Auto) 1.4 TH/MM3 Monocytes # (Auto) 0.8 TH/MM3 Eosinophils # (Auto) 0.1 TH/MM3 Basophils # (Auto) 0.0 TH/MM3 CBC Comment DIFF FINAL Differential Comment Blood Urea Nitrogen 13 MG/DL Creatinine 0.58 MG/DL Random Glucose 89 MG/DL Calcium Level 8.0 MG/DL Sodium Level 143 MEQ/L Potassium Level 3.7 MEQ/L Chloride Level 107 MEQ/L Carbon Dioxide Level 26.9 MEQ/L Anion Gap 9 MEQ/L Estimat Glomerular Filtration Rate 101 ML/MIN Assessment and Plan Problem List: (1) Edema ICD Codes: R60.9 - Edema, unspecified (2) CAD (coronary artery disease) ICD Codes: I25.10 - Atherosclerotic heart disease of [place] coronary artery without angina pectoris (3) Abnormal stress test ICD Codes: R94.39 - Abnormal result of other cardiovascular function study (4) Unstable angina ICD Codes: I20.0 - Unstable angina (5) CHF exacerbation ICD Codes: I50.9 - Heart failure, unspecified Status: Acute (6) Chest pain ICD Codes: R07.9 - Chest pain, unspecified Status: Acute Assessment and Plan 1) [place]/CAD s/p DESx2 to RCA Con't ASA/Brilinta/BB/ARB Changed statin to Lipitor 2) CHF exacerbation Con't diuresis today 3) Possible discharge tomorrow Problem Qualifiers (1) CHF exacerbation: Qualified Codes: I50.9 - Heart failure, unspecified (2) Chest pain: Qualified Codes: R07.9 - Chest pain, unspecified Felice Charles DO Jun 29, 2017 16:50
--- NOTE | 2017-06-29 18:18 | HHI.PR ---
Subjective Remarks This is a pleasant 77 y/o Female with Hypertension, Hyperlipidemia, GERD, CHF, who was admitted to [facility] transferred to [facility] to continue her management, also complaint of bilateral leg edema. Chest pain, status post Nuclear Stress Test. Report reviewed, showing ischemia in the mid septal wall. Results called to on-call portable track line marker Dr. Pugh who requests patient be transferred to the [facility] to undergo cardiac catheterization today, started on Heparin drip. 06/29: with Diagnosis of Unstable angina, status post BRIAN x 2 to RCA, Acute heart failure possibly due to ischemia, status pos PCI with stent placement x 2 06/28/17, due to that Brilinta is too expensive Doctor Melvin will switch to Plavix and Aspirin, Recommended to be here overnight and follow in his office in 2 to 4 weeks, continue diuresis, continue Beta blockers and ARB. Lipitor. Objective Vital Signs Date Time Temp Pulse Resp B/P (MAP) Pulse Ox O2 Delivery O2 Flow Rate FiO2 06/29/17 17:36 105 06/29/17 16:10 99 06/29/17 15:45 97.4 88 18 130/70 (90) 94 06/29/17 15:45 91 06/29/17 12:47 97.9 88 18 145/68 (93) 93 06/29/17 07:51 97.9 97 18 135/76 (95) 93 06/29/17 07:51 78 06/29/17 06:02 82 06/29/17 05:09 84 06/29/17 04:06 88 06/29/17 03:15 97.9 86 18 128/58 (81) 92 06/29/17 02:00 76 06/28/17 23:15 98.9 98 17 108/59 (75) 94 06/28/17 23:15 99 06/28/17 22:00 95 06/28/17 21:00 99 06/28/17 20:45 18 06/28/17 19:15 99.1 87 17 155/82 (106) 96 06/28/17 19:00 99 I/O 06/28/17 06/28/17 06/28/17 06/29/17 06/29/17 06/29/17 07:00 15:00 23:00 07:00 15:00 23:00 Intake Total 120 ml 250 ml 240 ml 640 ml Output Total 450 ml 1 ml Balance 120 ml 250 ml -210 ml 639 ml Intake Oral 120 ml 240 ml 640 ml IV Total 250 ml Output Urine Total 450 ml Stool Total 1 ml # Voids 2 5 Result Diagram: 06/29/17 0606 06/29/17 0606 Imaging Last Impressions Myocardial Perfusion Scan Nuc Med 06/27/17 0000 Signed Impressions: Service Date/Time: Tuesday, June 27, 2017 12:01 - CONCLUSION: 1. Findings suggesting focal stress-induced ischemia in the mid to inferior septal wall. 2. Global hypokinesia with more prominent decreased wall motion in the inferior wall. Reduced EF of 41%%. RISK CATEGORY: Intermediate (1-3%% Annual Mortality Rate) Chase Jerez MD Chest X-Ray 06/26/17 1134 Signed Impressions: Service Date/Time: Monday, June 26, 2017 11:51 - CONCLUSION: 1. Basilar atelectasis with suspected vascular congestion. Cardiomegaly. No consolidation or significant effusion. Prabhjot Xie MD Procedures Stress Test 06/28: with Diagnosis of Unstable angina, status post BRIAN x 2 to RCA, Acute heart failure possibly due to ischemia, status pos PCI with stent placement x 2 06/28/17, due to that Brilinta is too expensive Doctor Charles Other Results Laboratory Tests Test 06/26/17 11:30 06/26/17 13:35 06/26/17 21:49 06/27/17 05:33 Basophilic Stippling FAINT Ovalocytes 1+ Rouleau PRESENT Total Creatine Kinase 50 U/L B-Type Natriuretic Peptide 51 PG/ML Urine Collection Type CLEAN CATCH Urine Color YELLOW Urine Turbidity CLEAR Urine pH 6.0 Urine Specific [place] 1.010 Urine Protein NEG mg/dL Urine Glucose (UA) NEG mg/dL Urine Ketones NEG mg/dL Urine Occult Blood NEG Urine Nitrite NEG Urine Bilirubin NEG Urine Urobilinogen 0.2 MG/DL Urine Leukocyte Esterase NEG Urine WBC 0-2 /hpf Urine Squamous Epithelial Cells 0-5 /hpf Urine Amorphous Sediment FEW Microscopic Urinalysis Comment MUCOUS PRESENT Urine Collection Time 1335 Troponin I LESS THAN 0.02 NG/ML Platelet Estimate NORMAL Platelet Morphology Comment NORMAL Blood Urea Nitrogen 16 MG/DL Creatinine 0.46 MG/DL Random Glucose 114 MG/DL Total Protein 6.9 GM/DL Albumin 3.0 GM/DL Calcium Level 8.4 MG/DL Alkaline Phosphatase 94 U/L Aspartate Amino Transf (AST/SGOT) 15 U/L Alanine Aminotransferase (ALT/SGPT) 25 U/L Total Bilirubin 0.5 MG/DL Sodium Level 141 MEQ/L Potassium Level 3.6 MEQ/L Chloride Level 103 MEQ/L Carbon Dioxide Level 31.2 MEQ/L Test 06/27/17 15:50 06/28/17 01:50 06/29/17 06:06 Prothrombin Time 10.7 SEC Prothromb Time International Ratio 1.1 RATIO Activated Partial Thromboplast Time 28.4 SEC White Blood Count 9.7 TH/MM3 Red Blood Count 4.01 MIL/MM3 Hemoglobin 8.3 GM/DL Hematocrit 28.1 % Mean Corpuscular Volume 70.2 FL Mean Corpuscular Hemoglobin 20.6 PG Mean Corpuscular Hemoglobin Concent 29.4 % Red Cell Distribution Width 18.3 % Platelet Count 368 TH/MM3 Mean Platelet Volume 7.9 FL Neutrophils (%) (Auto) 76.4 % Lymphocytes (%) (Auto) 14.2 % Monocytes (%) (Auto) 7.8 % Eosinophils (%) (Auto) 1.4 % Basophils (%) (Auto) 0.2 % Neutrophils # (Auto) 7.4 TH/MM3 Lymphocytes # (Auto) 1.4 TH/MM3 Monocytes # (Auto) 0.8 TH/MM3 Eosinophils # (Auto) 0.1 TH/MM3 Basophils # (Auto) 0.0 TH/MM3 CBC Comment DIFF FINAL Differential Comment Blood Urea Nitrogen 13 MG/DL Creatinine 0.58 MG/DL Random Glucose 89 MG/DL Calcium Level 8.0 MG/DL Sodium Level 143 MEQ/L Potassium Level 3.7 MEQ/L Chloride Level 107 MEQ/L Carbon Dioxide Level 26.9 MEQ/L Anion Gap 9 MEQ/L Estimat Glomerular Filtration Rate 101 ML/MIN Objective Remarks GENERAL: Well-developed, Morbid obese patient. SKIN: Warm and dry. No rash. HEAD: Normocephalic. Atraumatic. EYES: Pupils equal and round. No scleral icterus. No injection or drainage. ENT: No nasal bleeding or discharge. Mucous membranes pink and moist. NECK: Supple. Trachea midline. CARDIOVASCULAR: Regular rate and rhythm. S1, S2 noted. 2/6 systolic murmur. No reproducible chest pain to palpation. RESPIRATORY: No accessory muscle use. Clear to auscultation. Breath sounds equal bilaterally. GASTROINTESTINAL: Abdomen soft, non-tender, nondistended. Normoactive bowel sounds x4. Extremities: Bilateral 2+ pitting edema. NEUROLOGICAL: Awake and alert. No obvious cranial nerve deficits. PSYCHIATRIC: Appropriate mood and affect; insight and judgment normal. Medications and IVs Current Medications Medications (Trade) Dose Ordered Sig/Van Route Start Time Stop Time Status Last Admin (NS Flush) 2 ml UNSCH PRN IV FLUSH 06/26/17 15:15 (NS Flush) 2 ml BID IV FLUSH 06/26/17 21:00 06/29/17 08:58 (Zofran Inj) 4 mg Q6H PRN IVP 06/26/17 15:15 (Morphine Inj) 2 mg Q3H PRN IV PUSH 06/26/17 15:15 06/28/17 20:04 (Morphine Inj) 4 mg Q3H PRN IV PUSH 06/26/17 15:15 (Narcan Inj) 0.4 mg UNSCH PRN IV PUSH 06/26/17 15:15 (Milk Of Magnesia Liq) 30 ml Q12H PRN PO 06/26/17 15:15 06/29/17 11:09 (Vitamin D3) 5,000 units DAILY PO 06/27/17 09:00 06/29/17 08:57 (Cardizem Cd) 240 mg HS PO 06/26/17 21:00 06/28/17 20:03 (Cozaar) 25 mg DAILY PO 06/27/17 09:00 06/29/17 08:57 (Theragran M Tab) 1 tab DAILY PO 06/27/17 09:00 06/29/17 08:57 (Protonix) 40 mg DAILY PO 06/27/17 09:00 06/29/17 08:57 (Lasix Inj) 40 mg DAILY IV PUSH 06/27/17 09:00 06/29/17 08:59 (KCl) 10 meq DAILY PO 06/27/17 09:00 06/29/17 08:58 (Lopressor) 12.5 mg Q12HR PO 06/27/17 21:00 06/29/17 09:00 (Pill Splitter) 1 ea UNSCH PRN OTHER 06/27/17 16:00 (Aspirin Chew) 81 mg DAILY PO 06/29/17 09:00 06/29/17 08:58 (Brilinta) 90 mg BID PO 06/28/17 21:00 06/29/17 08:58 (Atropine Inj) 0.5 mg UNSCH PRN IV PUSH 06/28/17 13:45 (Lipitor) 80 mg HS PO 06/28/17 21:00 06/28/17 20:03 A/P Assessment and Plan (1) Chest pain ICD Code: R07.9 - Chest pain, unspecified Status: Acute (2) CHF exacerbation ICD Code: I50.9 - Heart failure, unspecified Status: Acute Assessment and Plan This is a pleasant 77-year-old female patient with a known medical history of hypertension, hypercholesterolemia, GERD who presented to the ED with complaints of worsening dyspnea with associated chest pain. Chest pain ruled out acute coronary event, rule out coronary artery disease Congestive heart failure questionable exacerbation Chest x-ray reviewed showing basilar atelectasis with suspected vascular congestion. Cardiomegaly. No consolidation or significant effusion. BNP is 51. Given Lasix 40 mg IV 1 in ED. Continue scheduled. Placed on potassium supplementation. Monitor BMP. CBC and BMP reviewed, essentially unremarkable. Serial EKGs and serial troponins have been ordered for ruling out ACS purposes. Troponins flat. EKG reviewed showing left bundle branch block with controlled heart rate. Patient is unaware of CHF diagnosis, has not received an echo for over 3 years. ECHO essentially unremarkable. Although nuclear stress test shows EF of 41%. Supplemental O2 as needed, patient requiring 2LNC. Does not use home O2 at home. Patient underwent nuclear stress test this morning, results called to Dr. Pugh, portable track line marker on-call, who ordered for transfer, heparin drip and cardiac catheterization today 06/28: with Diagnosis of Unstable angina, status post BRIAN x 2 to RCA , Acute heart failure possibly due to ischemia, status pos PCI with stent placement x 2 06/28/17, due to that Brilinta is too expensive Doctor Melvin will switch to Plavix and Aspirin, Recommended to be here overnight and follow in his office in 2 to 4 weeks, continue diuresis, continue Beta blockers and ARB. Lipitor. Hypertension, chronic: Continue home medications. Monitor BP trends. Hyperlipidemia, chronic: Continue home statin. Morbid Obesity strongly recommended for diet and exercise. Anemia she has Iron deficiency anemia will need to GI specialist for follow up as outpatient. Dyspnea probable secondary to Deconditioning, Morbid obesity, her Echocardiogram gave result of EF 60-65%, Normal left ventricular size, no regional wall motion abnormality, left atrial size is mild to moderately dilated, Pulmonary hypertension pulmonary pressure 56.8 mm Hg. Tricuspid valve regurgitation. DVT prophylaxis: SCDs. Hold Lovenox. Start on Heparin gtt. Discharge Planning Once cleared by employee communications specialist. Jose Alfredo Torres MD Jun 29, 2017 18:18
[2017-06-29] MEDS ORDERED: LACTULOSE SYRUP 20 GM/30 ML CUP PO ONE (18:30)
[2017-06-29] MEDS: GLYCERIN ADULT 2 GM SUPP RECTAL ONE ×2 (18:30→18:45)
[2017-06-29] MEDS ORDERED: ENOXAPARIN SODIUM 40 MG/0.4 ML SYRINGE SQ SCH (19:00)
[2017-06-29] MEDS: ATORVASTATIN 80 MG TAB PO SCH (20:56)
[2017-06-29] MEDS: DILTIAZEM-CD 240 MG CAP ER PO SCH (20:57)
[2017-06-30] VITALS (17 sets, daily range): BP systolic 116–127; BP diastolic 53–68; PULSE 66–98; RESP 18–20; TEMP 97–98; O2SAT 90–98
[2017-06-30 06:17] LABS: HEMATOCRIT 27.1 % (35.0-46.0); HEMOGLOBIN 8.5 GM/DL (11.6-15.3); MEAN CELL VOLUME 70.2 FL (80.0-100.0); MEAN CORPUSCULAR HGB CONC 31.3 % (32.0-36.0); MEAN PLATELET VOLUME 7.9 FL (7.0-11.0); PLATELET COUNT 365 TH/MM3 (150-450); RED BLOOD COUNT 3.86 MIL/MM3 (4.00-5.30); RED CELL DISTRIBUTION WIDTH 18.4 % (11.6-17.2); WHITE BLOOD COUNT 11.6 TH/MM3 (4.0-11.0)
--- NOTE | 2017-06-30 09:06 | HHI.PR ---
Subjective Remarks This is a pleasant 77 y/o Female with Hypertension, Hyperlipidemia, GERD, CHF, who was admitted to [facility] [place] transferred to [facility] to continue her management, also complaint of bilateral leg edema. Chest pain, status post Nuclear Stress Test. Report reviewed, showing ischemia in the mid septal wall. Results called to on-call hospice music therapist Dr. Pugh who requests patient be transferred to the [facility] to undergo cardiac catheterization today, started on Heparin drip. 06/29: with Diagnosis of Unstable angina, status post BRIAN x 2 to RCA, Acute heart failure possibly due to ischemia, status pos PCI with stent placement x 2 06/28/17, due to that Brilinta is too expensive Doctor Melvin will switch to Plavix and Aspirin, Recommended to be here overnight and follow in his office in 2 to 4 weeks, continue diuresis, continue Beta blockers and ARB. Lipitor. 06/30: patient improving general condition, improving dyspnea, seen in her bedroom, in the presence of her Mr. Johnny Looney no nausea, vomit or diarrhea. Objective Vital Signs Date Time Temp Pulse Resp B/P (MAP) Pulse Ox O2 Delivery O2 Flow Rate FiO2 06/30/17 09:03 74 06/30/17 08:59 88 06/30/17 07:42 87 06/30/17 06:16 66 06/30/17 05:03 74 06/30/17 04:00 76 06/30/17 03:40 68 06/30/17 03:00 97.6 85 127/53 (77) 90 06/30/17 02:00 84 06/30/17 01:00 78 06/30/17 00:00 82 06/29/17 23:49 98.3 87 114/56 (75) 90 06/29/17 23:00 89 06/29/17 22:00 106 06/29/17 21:00 106 06/29/17 20:00 88 06/29/17 20:00 97.9 94 150/68 (95) 93 06/29/17 19:00 103 06/29/17 18:39 103 06/29/17 17:36 105 06/29/17 16:10 99 06/29/17 15:45 97.4 88 18 130/70 (90) 94 06/29/17 15:45 91 06/29/17 12:47 97.9 88 18 145/68 (60) 93 I/O 06/29/17 06/29/17 06/29/17 06/30/17 06/30/17 06/30/17 07:00 15:00 23:00 07:00 15:00 23:00 Intake Total 240 ml 640 ml 240 ml Output Total 450 ml 1 ml Balance -210 ml 639 ml 240 ml Intake Oral 240 ml 640 ml 240 ml Output Urine Total 450 ml Stool Total 1 ml # Voids 5 3 # Bowel Movements 2 Result Diagram: 06/30/17 0454 06/29/17 0606 Imaging Last Impressions Myocardial Perfusion Scan Nuc Med 06/27/17 0000 Signed Impressions: Service Date/Time: Tuesday, June 27, 2017 12:01 - CONCLUSION: 1. Findings suggesting focal stress-induced ischemia in the mid to inferior septal wall. 2. Global hypokinesia with more prominent decreased wall motion in the inferior wall. Reduced EF of 41%%. RISK CATEGORY: Intermediate (1-3%% Annual Mortality Rate) Chase Jerez MD Chest X-Ray 06/26/17 1134 Signed Impressions: Service Date/Time: Monday, June 26, 2017 11:51 - CONCLUSION: 1. Basilar atelectasis with suspected vascular congestion. Cardiomegaly. No consolidation or significant effusion. Prabhjot Xie MD Procedures Stress Test 06/28: with Diagnosis of Unstable angina, status post BRIAN x 2 to RCA, Acute heart failure possibly due to ischemia, status pos PCI with stent placement x 2 06/28/17, due to that Brilinta is too expensive Doctor Charles Other Results Laboratory Tests Test 06/26/17 11:30 06/26/17 13:35 06/26/17 21:49 06/27/17 05:33 Basophilic Stippling FAINT Ovalocytes 1+ Rouleau PRESENT Total Creatine Kinase 50 U/L B-Type Natriuretic Peptide 51 PG/ML Urine Collection Type CLEAN CATCH Urine Color YELLOW Urine Turbidity CLEAR Urine pH 6.0 Urine Specific [place] 1.010 Urine Protein NEG mg/dL Urine Glucose (UA) NEG mg/dL Urine Ketones NEG mg/dL Urine Occult Blood NEG Urine Nitrite NEG Urine Bilirubin NEG Urine Urobilinogen 0.2 MG/DL Urine Leukocyte Esterase NEG Urine WBC 0-2 /hpf Urine Squamous Epithelial Cells 0-5 /hpf Urine Amorphous Sediment FEW Microscopic Urinalysis Comment MUCOUS PRESENT Urine Collection Time 1335 Troponin I LESS THAN 0.02 NG/ML Platelet Estimate NORMAL Platelet Morphology Comment NORMAL Blood Urea Nitrogen 16 MG/DL Creatinine 0.46 MG/DL Random Glucose 114 MG/DL Total Protein 6.9 GM/DL Albumin 3.0 GM/DL Calcium Level 8.4 MG/DL Alkaline Phosphatase 94 U/L Aspartate Amino Transf (AST/SGOT) 15 U/L Alanine Aminotransferase (ALT/SGPT) 25 U/L Total Bilirubin 0.5 MG/DL Sodium Level 141 MEQ/L Potassium Level 3.6 MEQ/L Chloride Level 103 MEQ/L Carbon Dioxide Level 31.2 MEQ/L Test 06/27/17 15:50 06/28/17 01:50 06/29/17 06:06 06/30/17 04:54 Prothrombin Time 10.7 SEC Prothromb Time International Ratio 1.1 RATIO Activated Partial Thromboplast Time 28.4 SEC Neutrophils (%) (Auto) 76.4 % Lymphocytes (%) (Auto) 14.2 % Monocytes (%) (Auto) 7.8 % Eosinophils (%) (Auto) 1.4 % Basophils (%) (Auto) 0.2 % Neutrophils # (Auto) 7.4 TH/MM3 Lymphocytes # (Auto) 1.4 TH/MM3 Monocytes # (Auto) 0.8 TH/MM3 Eosinophils # (Auto) 0.1 TH/MM3 Basophils # (Auto) 0.0 TH/MM3 CBC Comment DIFF FINAL Differential Comment Blood Urea Nitrogen 13 MG/DL Creatinine 0.58 MG/DL Random Glucose 89 MG/DL Calcium Level 8.0 MG/DL Sodium Level 143 MEQ/L Potassium Level 3.7 MEQ/L Chloride Level 107 MEQ/L Carbon Dioxide Level 26.9 MEQ/L Anion Gap 9 MEQ/L Estimat Glomerular Filtration Rate 101 ML/MIN White Blood Count 11.6 TH/MM3 Red Blood Count 3.86 MIL/MM3 Hemoglobin 8.5 GM/DL Hematocrit 27.1 % Mean Corpuscular Volume 70.2 FL Mean Corpuscular Hemoglobin 22.0 PG Mean Corpuscular Hemoglobin Concent 31.3 % Red Cell Distribution Width 18.4 % Platelet Count 365 TH/MM3 Mean Platelet Volume 7.9 FL Objective Remarks GENERAL: Well-developed, Morbid obese patient. SKIN: Warm and dry. No rash. HEAD: Normocephalic. Atraumatic. EYES: Pupils equal and round. No scleral icterus. No injection or drainage. ENT: No nasal bleeding or discharge. Mucous membranes pink and moist. NECK: Supple. Trachea midline. CARDIOVASCULAR: Regular rate and rhythm. S1, S2 noted. 2/6 systolic murmur. No reproducible chest pain to palpation. RESPIRATORY: No accessory muscle use. Clear to auscultation. Breath sounds equal bilaterally. GASTROINTESTINAL: Abdomen soft, non-tender, nondistended. Normoactive bowel sounds x4. Extremities: Bilateral 2+ pitting edema. NEUROLOGICAL: Awake and alert. No obvious cranial nerve deficits. PSYCHIATRIC: Appropriate mood and affect; insight and judgment normal. Medications and IVs Current Medications Medications (Trade) Dose Ordered Sig/Van Route Start Time Stop Time Status Last Admin (NS Flush) 2 ml UNSCH PRN IV FLUSH 06/26/17 15:15 (NS Flush) 2 ml BID IV FLUSH 06/26/17 21:00 06/29/17 20:58 (Zofran Inj) 4 mg Q6H PRN IVP 06/26/17 15:15 (Morphine Inj) 2 mg Q3H PRN IV PUSH 06/26/17 15:15 06/28/17 20:04 (Morphine Inj) 4 mg Q3H PRN IV PUSH 06/26/17 15:15 (Narcan Inj) 0.4 mg UNSCH PRN IV PUSH 06/26/17 15:15 (Milk Of Magnesia Liq) 30 ml Q12H PRN PO 06/26/17 15:15 06/29/17 11:09 (Vitamin D3) 5,000 units DAILY PO 06/27/17 09:00 06/29/17 08:57 (Cardizem Cd) 240 mg HS PO 06/26/17 21:00 06/29/17 20:57 (Cozaar) 25 mg DAILY PO 06/27/17 09:00 06/29/17 08:57 (Theragran M Tab) 1 tab DAILY PO 06/27/17 09:00 06/29/17 08:57 (Protonix) 40 mg DAILY PO 06/27/17 09:00 06/29/17 08:57 (Lasix Inj) 40 mg DAILY IV PUSH 06/27/17 09:00 06/29/17 08:59 (KCl) 10 meq DAILY PO 06/27/17 09:00 06/29/17 08:58 (Lopressor) 12.5 mg Q12HR PO 06/27/17 21:00 06/29/17 20:57 (Pill Splitter) 1 ea UNSCH PRN OTHER 06/27/17 16:00 (Aspirin Chew) 81 mg DAILY PO 06/29/17 09:00 06/29/17 08:58 (Brilinta) 90 mg BID PO 06/28/17 21:00 06/29/17 20:58 (Atropine Inj) 0.5 mg UNSCH PRN IV PUSH 06/28/17 13:45 (Lipitor) 80 mg HS PO 06/28/17 21:00 06/29/17 20:56 (Lovenox Inj) 40 mg Q24H SQ 06/29/17 19:00 06/29/17 18:45 A/P Assessment and Plan (1) Chest pain ICD Code: R07.9 - Chest pain, unspecified Status: Acute (2) CHF exacerbation ICD Code: I50.9 - Heart failure, unspecified Status: Acute Assessment and Plan This is a pleasant 77-year-old female patient with a known medical history of hypertension, hypercholesterolemia, GERD who presented to the ED with complaints of worsening dyspnea with associated chest pain. Chest pain ruled out acute coronary event, rule out coronary artery disease Congestive heart failure questionable exacerbation Chest x-ray reviewed showing basilar atelectasis with suspected vascular congestion. Cardiomegaly. No consolidation or significant effusion. BNP is 51. Given Lasix 40 mg IV 1 in ED. Continue scheduled. Placed on potassium supplementation. Monitor BMP. CBC and BMP reviewed, essentially unremarkable. Serial EKGs and serial troponins have been ordered for ruling out ACS purposes. Troponins flat. EKG reviewed showing left bundle branch block with controlled heart rate. Patient is unaware of CHF diagnosis, has not received an echo for over 3 years. ECHO essentially unremarkable. Although nuclear stress test shows EF of 41%. Supplemental O2 as needed, patient requiring 2LNC. Does not use home O2 at home. Patient underwent nuclear stress test this morning, results called to Dr. Pugh, hospice music therapist on-call, who ordered for transfer, heparin drip and cardiac catheterization today 06/28: with Diagnosis of Unstable angina, status post BRIAN x 2 to RCA , Acute heart failure possibly due to ischemia, status pos PCI with stent placement x 2 06/28/17, due to that Brilinta is too expensive Doctor Melvin will switch to Plavix and Aspirin, Recommended to be here overnight and follow in his office in 2 to 4 weeks, continue diuresis, continue Beta blockers and ARB. Lipitor. today improving condition okay to discharge on diuretics, and Brilinta, Aspirin. Hypertension, chronic: Controlled. Hyperlipidemia, chronic: Continue home statin. Morbid Obesity strongly recommended for diet and exercise. discussed again about lyfestyle recommendations. Anemia she has Iron deficiency anemia will need to GI specialist for follow up as outpatient. Dyspnea probable secondary to Deconditioning, Morbid obesity, her Echocardiogram gave result of EF 60-65%, Normal left ventricular size, no regional wall motion abnormality, left atrial size is mild to moderately dilated, Pulmonary hypertension pulmonary pressure 56.8 mm Hg. Tricuspid valve regurgitation. Improving today recommended to be discharge on diuretics, beta blockers. DVT prophylaxis: SCDs. Hold Lovenox. Start on Heparin gtt. Discharge Planning Cleared by soil fertility specialist, scripts given by Cardiology and by me. Discussed with patient, nurse, and her in the room. Jose Alfredo Torres MD Jun 30, 2017 09:06
[2017-06-30] MEDS: METOPROLOL TARTRATE 25 MG TAB PO SCH (09:09)
[2017-06-30] MEDS: TICAGRELOR 90 MG TAB PO SCH (09:10)
[2017-06-30] MEDS: SODIUM CHLORIDE 0.9% FLUSH 10 ML FLUSH IV FLUSH SCH (09:10)
[2017-06-30] MEDS: ASPIRIN 81 MG CHEW TAB PO SCH (09:10)
[2017-06-30] MEDS: LOSARTAN 25 MG TAB PO SCH (09:10)
[2017-06-30] MEDS: PANTOPRAZOLE SOD 40 MG DELAYED RELEASE TAB PO SCH (09:10)
[2017-06-30] MEDS: FUROSEMIDE 40 MG/4 ML VIAL IV PUSH SCH (09:10)
[2017-06-30] MEDS: MULTIVITAMINS/MINERALS THERAPEUTIC TAB PO SCH (09:10)
[2017-06-30] MEDS: CHOLECALCIFEROL (VIT D3) 5000 UNIT CAP PO SCH (09:10)
[2017-06-30] MEDS: POTASSIUM CHLORIDE 10 MEQ CONTROLLED RELEASE TAB PO SCH (09:11)
[2017-06-30] MEDS ORDERED: POTASSIUM CHLORIDE 20 MEQ CONTROLLED RELEASE TAB PO ONE (09:15)
[2017-06-30] MEDS ORDERED: KLOR10TA PO (13:21)
[2017-06-30] MEDS ORDERED: ATOR80TA45 PO (13:21)
[2017-06-30] MEDS ORDERED: ASPI81 PO (13:21)
[2017-06-30] MEDS ORDERED: BRIL90TA PO (13:21)
[2017-06-30] MEDS ORDERED: METO25TA3 PO (13:21)
--- NOTE | 2017-06-30 15:27 | HHI.DS ---
Discharge Summary Admission Date Jun 26, 2017 at 14:07 Discharge Date: Jun 30, 2017 Admitting Diagnosis CHF exacerbation, chest pain (1) Chest pain ICD Code: R07.9 - Chest pain, unspecified Diagnosis: Principal Status: Acute (2) Pulmonary hypertension ICD Code: I27.20 - Pulmonary hypertension, unspecified Diagnosis: Principal Procedures Stress Test 06/28: with Diagnosis of Unstable angina, status post BRIAN x 2 to RCA, Acute heart failure possibly due to ischemia, status pos PCI with stent placement x 2 06/28/17, due to that Brilinta is too expensive Doctor Melvin Brief History - From Admission This is a pleasant 77-year-old female patient with a known medical history of hypertension, hypercholesterolemia, GERD and CHF who presented to the ED with complaints of worsening dyspnea with associated chest pain. Patient states that over the course of the last couple months she has been having increasing dyspnea on exertion and orthopnea. Patient states that roughly 2 weeks she has been feeling fatigued and extremely short of breath. She states that she is unable to walk across the room without becoming short of breath. She is unable to perform her activities of daily living without having to rest. Patient states that over the course of the last 2 days she has developed a chest discomfort, characterized as pressure in nature, is intermittent and comes and go with activity. She states that the pain worsens with walking and is relieved with rest. When the pain is present to 10 out of 10 on pain scale and last several minutes. Patient does admit to a chronic cough with clear phlegm. Denies any recent illness including fever, chills, abdominal pain, nausea, vomiting, diarrhea or dysuria. Patient's PCP is Dr. Fitzgerald was last seen 1-1/ 2 months ago with no changes in medicines. Patient was previously following Dr. Henning but has not seen him for over 2 years. Patient states she underwent a stress test over 10 years ago which was reportedly negative. Has not had a recent echocardiogram. And does not know whether she has actually the diagnosis of CHF. It should be noted that patient has gained roughly 20 pounds over the last 2 months. She does present with bilateral leg edema. No history of DVT or PE. She has been compliant with medications including Bumex. CBC/BMP: 06/30/17 0454 06/29/17 0606 Significant Findings Laboratory Tests Test 06/27/17 15:50 06/28/17 01:50 06/29/17 06:06 06/30/17 04:54 White Blood Count 11.3 TH/MM3 (4.0-11.0) 11.6 TH/MM3 (4.0-11.0) Hemoglobin 9.9 GM/DL (11.6-15.3) 8.3 GM/DL (11.6-15.3) 8.5 GM/DL (11.6-15.3) Hematocrit 31.9 % (35.0-46.0) 28.1 % (35.0-46.0) 27.1 % (35.0-46.0) Mean Corpuscular Volume 69.7 FL (80.0-100.0) 70.2 FL (80.0-100.0) 70.2 FL (80.0-100.0) Mean Corpuscular Hemoglobin 21.6 PG (27.0-34.0) 20.6 PG (27.0-34.0) 22.0 PG (27.0-34.0) Mean Corpuscular Hemoglobin Concent 31.0 % (32.0-36.0) 29.4 % (32.0-36.0) 31.3 % (32.0-36.0) Red Cell Distribution Width 18.1 % (11.6-17.2) 18.3 % (11.6-17.2) 18.4 % (11.6-17.2) Neutrophils (%) (Auto) 76.4 % (16.0-70.0) Calcium Level 8.0 MG/DL (8.5-10.1) Red Blood Count 3.86 MIL/MM3 (4.00-5.30) Imaging Last Impressions Myocardial Perfusion Scan Nuc Med 06/27/17 0000 Signed Impressions: Service Date/Time: Tuesday, June 27, 2017 12:01 - CONCLUSION: 1. Findings suggesting focal stress-induced ischemia in the mid to inferior septal wall. 2. Global hypokinesia with more prominent decreased wall motion in the inferior wall. Reduced EF of 41%%. RISK CATEGORY: Intermediate (1-3%% Annual Mortality Rate) Chase Jerez MD Chest X-Ray 06/26/17 1134 Signed Impressions: Service Date/Time: Monday, June 26, 2017 11:51 - CONCLUSION: 1. Basilar atelectasis with suspected vascular congestion. Cardiomegaly. No consolidation or significant effusion. Prabhjot Xie MD PE at Discharge GENERAL: Well-developed, Morbid obese patient. SKIN: Warm and dry. No rash. HEAD: Normocephalic. Atraumatic. EYES: Pupils equal and round. No scleral icterus. No injection or drainage. ENT: No nasal bleeding or discharge. Mucous membranes pink and moist. NECK: Supple. Trachea midline. CARDIOVASCULAR: Regular rate and rhythm. S1, S2 noted. 2/6 systolic murmur. No reproducible chest pain to palpation. RESPIRATORY: No accessory muscle use. Clear to auscultation. Breath sounds equal bilaterally. GASTROINTESTINAL: Abdomen soft, non-tender, nondistended. Normoactive bowel sounds x4. Extremities: Bilateral 2+ pitting edema. NEUROLOGICAL: Awake and alert. No obvious cranial nerve deficits. PSYCHIATRIC: Appropriate mood and affect; insight and judgment normal. Hospital Course This is a pleasant 77 y/o Female with Hypertension, Hyperlipidemia, GERD, CHF, who was admitted to [facility] transferred to [facility] to continue her management, also complaint of bilateral leg edema. Chest pain, status post Nuclear Stress Test. Report reviewed, showing ischemia in the mid septal wall. Results called to on-call commercial service technician Dr. Pugh who requests patient be transferred to the [facility] to undergo cardiac catheterization today, started on Heparin drip. 06/29: with Diagnosis of Unstable angina, status post BRIAN x 2 to RCA, Acute heart failure possibly due to ischemia, status pos PCI with stent placement x 2 06/28/17, due to that Brilinta is too expensive Doctor Melvin will switch to Plavix and Aspirin, Recommended to be here overnight and follow in his office in 2 to 4 weeks, continue diuresis, continue Beta blockers and ARB. Lipitor. 06/30: patient improving general condition, improving dyspnea, seen in her bedroom, in the presence of her Mr. Johnny Looney no nausea, vomit or diarrhea. Assessment and Plan (1) Chest pain ICD Code: R07.9 - Chest pain, unspecified Status: Acute (2) CHF exacerbation ICD Code: I50.9 - Heart failure, unspecified Status: Acute Assessment and Plan This is a pleasant 77-year-old female patient with a known medical history of hypertension, hypercholesterolemia, GERD who presented to the ED with complaints of worsening dyspnea with associated chest pain. Chest pain ruled out acute coronary event, rule out coronary artery disease Congestive heart failure questionable exacerbation Chest x-ray reviewed showing basilar atelectasis with suspected vascular congestion. Cardiomegaly. No consolidation or significant effusion. BNP is 51. Given Lasix 40 mg IV 1 in ED. Continue scheduled. Placed on potassium supplementation. Monitor BMP. CBC and BMP reviewed, essentially unremarkable. Serial EKGs and serial troponins have been ordered for ruling out ACS purposes. Troponins flat. EKG reviewed showing left bundle branch block with controlled heart rate. Patient is unaware of CHF diagnosis, has not received an echo for over 3 years. ECHO essentially unremarkable. Although nuclear stress test shows EF of 41%. Supplemental O2 as needed, patient requiring 2LNC. Does not use home O2 at home. Patient underwent nuclear stress test this morning, results called to Dr. Pugh, commercial service technician on-call, who ordered for transfer, heparin drip and cardiac catheterization today 06/28: with Diagnosis of Unstable angina, status post BRIAN x 2 to RCA , Acute heart failure possibly due to ischemia, status pos PCI with stent placement x 2 06/28/17, due to that Brilinta is too expensive Doctor Melvin will switch to Plavix and Aspirin, Recommended to be here overnight and follow in his office in 2 to 4 weeks, continue diuresis, continue Beta blockers and ARB. Lipitor. today improving condition okay to discharge on diuretics, and Brilinta, Aspirin. Hypertension, chronic: Controlled. Hyperlipidemia, chronic: Continue home statin. Morbid Obesity strongly recommended for diet and exercise. discussed again about lyfestyle recommendations. Anemia she has Iron deficiency anemia will need to GI specialist for follow up as outpatient. Dyspnea probable secondary to Deconditioning, Morbid obesity, her Echocardiogram gave result of EF 60-65%, Normal left ventricular size, no regional wall motion abnormality, left atrial size is mild to moderately dilated, Pulmonary hypertension pulmonary pressure 56.8 mm Hg. Tricuspid valve regurgitation. Improving today recommended to be discharge on diuretics, beta blockers. DVT prophylaxis: SCDs. Hold Lovenox. Start on Heparin gtt. Discharge Planning Cleared by production specialist, scripts given by Cardiology and by me. Discussed with patient, nurse, and her in the room. Pt Condition on Discharge: Good Discharge Disposition: Discharge Home Discharge Time: > 30 minutes Discharge Instructions DIET: Follow Instructions for: Heart Healthy Diet Activities you can perform: Regular-No Restrictions Jose Alfredo Torres MD Jun 30, 2017 15:27
--- NOTE | 2017-06-30 20:00 | PD.CARD.PN ---
Subjective Subjective Remarks Patient was seen earlier today, late entry No events overnight No chest pain Objective Vital Signs / I&O Vital Signs Date Time Temp Pulse Resp B/P (MAP) Pulse Ox O2 Delivery O2 Flow Rate FiO2 06/30/17 13:31 98 06/30/17 12:04 98 06/30/17 11:38 98.0 92 18 122/68 (86) 97 06/30/17 11:36 92 06/30/17 10:32 92 06/30/17 09:18 97.0 80 20 116/63 (80) 98 06/30/17 09:03 74 06/30/17 08:59 88 06/30/17 07:42 87 06/30/17 06:16 66 06/30/17 05:03 74 06/30/17 04:00 76 06/30/17 03:40 68 06/30/17 03:00 97.6 85 127/53 (77) 90 06/30/17 02:00 84 06/30/17 01:00 78 06/30/17 00:00 82 06/29/17 23:49 98.3 87 114/56 (75) 90 06/29/17 23:00 89 06/29/17 22:00 106 06/29/17 21:00 106 06/29/17 20:00 88 06/29/17 20:00 97.9 94 150/68 (95) 93 I/O 06/29/17 06/29/17 06/29/17 06/30/17 06/30/17 06/30/17 07:00 15:00 23:00 07:00 15:00 23:00 Intake Total 240 ml 640 ml 240 ml Output Total 450 ml 1 ml Balance -210 ml 639 ml 240 ml Intake Oral 240 ml 640 ml 240 ml Output Urine Total 450 ml Stool Total 1 ml # Voids 5 3 # Bowel Movements 2 Physical Exam GENERAL: NAD, AAOx3 SKIN: Warm and dry. HEAD: Atraumatic. Normocephalic. EYES: Pupils equal and round. No scleral icterus. No injection or drainage. ENT: No nasal bleeding or discharge. Mucous membranes pink and moist. NECK: Trachea midline. No JVD. CARDIOVASCULAR: Regular rate and rhythm. RESPIRATORY: No accessory muscle use. Decreased breath sounds GASTROINTESTINAL: Abdomen soft, non-tender, nondistended. Hepatic and splenic margins not palpable. MUSCULOSKELETAL: 2+ edema. Right femoral with ecchymosis, no hematoma, no pain with palpation NEUROLOGICAL: Awake and alert. No obvious cranial nerve deficits. Motor grossly within normal limits. Five out of 5 muscle strength in the arms and legs. Normal speech. PSYCHIATRIC: Appropriate mood and affect; insight and judgment normal. Laboratory Laboratory Tests Test 06/30/17 04:54 White Blood Count 11.6 TH/MM3 Red Blood Count 3.86 MIL/MM3 Hemoglobin 8.5 GM/DL Hematocrit 27.1 % Mean Corpuscular Volume 70.2 FL Mean Corpuscular Hemoglobin 22.0 PG Mean Corpuscular Hemoglobin Concent 31.3 % Red Cell Distribution Width 18.4 % Platelet Count 365 TH/MM3 Mean Platelet Volume 7.9 FL Assessment and Plan Problem List: (1) Edema ICD Codes: R60.9 - Edema, unspecified (2) CAD (coronary artery disease) ICD Codes: I25.10 - Atherosclerotic heart disease of [place] coronary artery without angina pectoris (3) Abnormal stress test ICD Codes: R94.39 - Abnormal result of other cardiovascular function study (4) Unstable angina ICD Codes: I20.0 - Unstable angina (5) CHF exacerbation ICD Codes: I50.9 - Heart failure, unspecified Status: Acute (6) Chest pain ICD Codes: R07.9 - Chest pain, unspecified Status: Acute Assessment and Plan 1) [place]/CAD s/p DESx2 to RCA Con't ASA/Brilinta/BB/ARB Changed statin to Lipitor 2) CHF exacerbation 3) Cardiovascularly stable for discharge, will follow up with me in the office Problem Qualifiers (1) CHF exacerbation: Qualified Codes: I50.9 - Heart failure, unspecified (2) Chest pain: Qualified Codes: R07.9 - Chest pain, unspecified Felice Charles DO Jun 30, 2017 20:00
[2017-07-01] MEDS ORDERED: FURO1TAB62 PO (17:09)
== END 2017-06-30 14:25 | disposition home or self-care (01) | DRG 247 ==
LOC: PHED 11:20 → PHEDA 14:07 → PH3A 15:24 → HCIS 06-27 23:20
PROVIDERS: ADMIT Internal Medicine; ATTEND Internal Medicine
PROC: 027035Z Dilation of Coronary Artery, One Artery with Two Drug-eluting Intraluminal Devices, Percutaneous Approach (ICD-10-PCS; principal; 2017-06-29)
PROC: 4A023N7 Measurement of Cardiac Sampling and Pressure, Left Heart, Percutaneous Approach (ICD-10-PCS; 2017-06-29)
PROC: B2111ZZ Fluoroscopy of Multiple Coronary Arteries using Low Osmolar Contrast (ICD-10-PCS; 2017-06-29)
DX: I25.110 Atherosclerotic heart disease of native coronary artery with unstable angina pectoris (principal); Z68.42 Body mass index [BMI] 45.0-49.9, adult; J98.11 Atelectasis; I48.91 Unspecified atrial fibrillation; E66.01 Morbid (severe) obesity due to excess calories; I07.1 Rheumatic tricuspid insufficiency; I27.20 Pulmonary hypertension, unspecified; I44.7 Left bundle-branch block, unspecified; Z87.891 Personal history of nicotine dependence; E78.5 Hyperlipidemia, unspecified; K21.9 Gastro-esophageal reflux disease without esophagitis; Z96.652 Presence of left artificial knee joint; I44.0 Atrioventricular block, first degree; D50.9 Iron deficiency anemia, unspecified; G47.33 Obstructive sleep apnea (adult) (pediatric); I10 Essential (primary) hypertension
CPT/HCPCS: 71045; 78452; 80048; 80053; 81001; 82272; 82550; 83880; 84484; 85002; 85025; 85027; 85347; 85610; 85730; 92928; 93005; 93017; 93306; 93458; 96374; 99152; 99153; A9502; C1725; C1769; C1874; C1887; C1893; J1644; J1650; J1940; J2250; J2270; J2785; J3010; Q9967

== ENCOUNTER 2017-07-01 11:47 | Observation (INO) | payer MEDICARE, OTHER ==
[~2017-07-01] VITALS: Ht 160 cm; Wt 117.2 kg
[~2017-07-01 11:47] MED LIST: ASPI81 PO; ATOR80TA45 PO; BRIL90TA PO; BUME1TAB PO; CENTCHW4 CHEW; D3 U5000 PO; DILT-48 PO; KLOR10TA PO; LOSA25TA PO; METO25TA3 PO; OMEP20TA93 PO
[2017-07-01 11:49] VITALS: BP 135/64; PULSE 92; RESP 18; TEMP 99.3; O2SAT 96
[2017-07-01 12:18] VITALS: BP 149/71; PULSE 95; RESP 16; TEMP 98.8; O2SAT 96
[2017-07-01 12:26] VITALS: BP 149/71; PULSE 94; RESP 17; O2SAT 96
--- NOTE | 2017-07-01 12:29 | PD ---
HPI Chief Complaint: Chest Pain Time Seen by Provider: 12:07 Travel History International Travel<30 days: No Contact w/Intl Traveler<30days: No Traveled to known affect area: No History of Present Illness HPI Patient is a 77-year-old female presenting to emergency room for evaluation of chest pain. Patient states the pain started 1 hour prior to arrival, is under her left breast and feels twisting and pressure-like. She reports pain is a 5 out of 10. Patient states she had 2 stents placed this week with Dr. Charles. She then reported that she has had chest pain since she has been in the hospital. Last night she reported that the chest pain was midsternal, there was no radiation. Symptoms are exacerbated with movement, she reports decreased exercise tolerance. She reports getting short of breath just walking to the bathroom in her kitchen. She denies any dizziness, headache, diaphoresis , abdominal pain. Symptom onset is gradual, symptom severity is moderate. PFSH Past Medical History Arthritis: Yes Heart Rhythm Problems: Yes (a-fib this admit, per ED) Cardiovascular Problems: Yes High Cholesterol: Yes Chest Pain: Yes (this admit) Diabetes: Yes (type 2, diet controlled) GERD: Yes Hypertension: Yes Musculoskeletal: Yes Neurologic: Yes Respiratory: Yes Migraines: No Seizures: No Sickle Cell Disease: No Sleep Apnea: No Thyroid Disease: No Ulcer: No Past Surgical History Abdominal Surgery: Yes (ubilical hernia repair) AICD: No Body Medical Devices: right eye lens Cardiac Surgery: No Ear Surgery: No Endocrine Surgery: No Eye Surgery: Yes (right eye lens) Genitourinary Surgery: Yes (colonoscopy a couple years ago) Gynecologic Surgery: No Insulin Pump: No Joint Replacement: Yes (right knee) Oral Surgery: No Pacemaker: No Thoracic Surgery: No Social History Alcohol Use: No Tobacco Use: No (Former smoker) Substance Use: No Allergies-Medications (Allergen,Severity, Reaction): Coded Allergies: No Known Allergies (Verified Allergy, Unknown, 06/26/17) Reported Meds & Prescriptions Reported Meds & Active Scripts Active Klor-Con 10 (Potassium Chloride) 10 Meq Tab 10 Meq PO DAILY Tgt Aspirin (Aspirin) 81 Mg Chw 81 Mg PO DAILY Metoprolol Tartrate 25 Mg Tab 12.5 Mg PO Q12HR Atorvastatin (Atorvastatin Calcium) 80 Mg Tab 80 Mg PO HS Brilinta (Ticagrelor) 90 Mg Tab 90 Mg PO BID Reported Centrum (Multiple Vitamins W/ Minerals) 1 Chew 1 Tab CHEW DAILY D3 Ultra Strength (Cholecalciferol) 5,000 Unit Cap 5,000 Units PO DAILY Bumetanide 1 Mg Tab 1 Mg PO DAILY Omeprazole 20 Mg Tab 20 Mg PO BID Losartan (Losartan Potassium) 25 Mg Tab 25 Mg PO DAILY Diltiazem ER 24 HR 240 Mg Caper 240 Mg PO HS Review of Systems Except as stated in HPI: all other systems reviewed are Neg Cardiovascular: Positive: Chest Pain or Discomfort, Dyspnea on exertion, Edema Respiratory: Positive: Shortness of Breath Gastrointestinal: No: Nausea, Abdominal Pain Musculoskeletal: Positive: Edema, No: Myalgias Neurologic: No: Weakness, Focal Abnormalities, Change in Mentation Physical Exam Narrative GENERAL: Obese, alert, well-developed elderly female. Presenting in no acute distress. SKIN: Warm and dry. HEAD: Atraumatic. Normocephalic. EYES: Pupils equal and round. No scleral icterus. No injection or drainage. ENT: No nasal bleeding or discharge. Mucous membranes pink and moist. NECK: Trachea midline. No JVD. CARDIOVASCULAR: Regular rate and rhythm. 2+ pitting peripheral edema. RESPIRATORY: No accessory muscle use. Clear to auscultation. Breath sounds equal bilaterally. GASTROINTESTINAL: Abdomen soft, non-tender, nondistended. Hepatic and splenic margins not palpable. MUSCULOSKELETAL: Extremities without clubbing, cyanosis. No obvious deformities. NEUROLOGICAL: Awake and alert. No obvious cranial nerve deficits. Motor grossly within normal limits. Five out of 5 muscle strength in the arms and legs. Normal speech. PSYCHIATRIC: Appropriate mood and affect; insight and judgment normal. Data Data Last Documented VS Vital Signs Date Time Temp Pulse Resp B/P (MAP) Pulse Ox O2 Delivery O2 Flow Rate FiO2 07/01/17 12:44 97.8 94 22 150/71 (97) 97 Nasal Cannula 2.00 146/66 (92) Orders Orders Electrocardiogram (07/01/17 11:48) Complete Blood Count With Diff (07/01/17 11:48) Basic Metabolic Panel (Bmp) (07/01/17 11:48) Ckmb (Isoenzyme) Profile (07/01/17 11:48) Troponin I (07/01/17 11:48) Prothrombin Time / Inr (Pt) (07/01/17 11:52) Act Partial Throm Time (Ptt) (07/01/17 11:52) Hepatic Functional Panel (07/01/17 12:07) Magnesium (Mg) (07/01/17 12:07) Lipase (07/01/17 12:07) Chest, Single Ap (07/01/17 12:07) Ecg Monitoring (07/01/17 12:07) Bilateral Bp Monitoring (07/01/17 12:07) Iv Access Insert/Monitor (07/01/17 12:07) Oximetry (07/01/17 12:07) Oxygen Administration (07/01/17 12:07) B-Type Natriuretic Peptide (07/01/17 12:18) Admit Order (Ed Use Only) (07/01/17 13:51) Labs Laboratory Tests Test 07/01/17 12:15 White Blood Count 12.0 TH/MM3 Red Blood Count 4.31 MIL/MM3 Hemoglobin 8.9 GM/DL Hematocrit 30.0 % Mean Corpuscular Volume 69.7 FL Mean Corpuscular Hemoglobin 20.7 PG Mean Corpuscular Hemoglobin Concent 29.7 % Red Cell Distribution Width 18.5 % Platelet Count 416 TH/MM3 Mean Platelet Volume 7.9 FL Neutrophils (%) (Auto) 78.0 % Lymphocytes (%) (Auto) 11.7 % Monocytes (%) (Auto) 8.5 % Eosinophils (%) (Auto) 1.6 % Basophils (%) (Auto) 0.2 % Neutrophils # (Auto) 9.3 TH/MM3 Lymphocytes # (Auto) 1.4 TH/MM3 Monocytes # (Auto) 1.0 TH/MM3 Eosinophils # (Auto) 0.2 TH/MM3 Basophils # (Auto) 0.0 TH/MM3 CBC Comment DIFF FINAL Differential Comment Prothrombin Time 11.3 SEC Prothromb Time International Ratio 1.1 RATIO Activated Partial Thromboplast Time 25.4 SEC Blood Urea Nitrogen 24 MG/DL Creatinine 0.73 MG/DL Random Glucose 110 MG/DL Calcium Level 8.7 MG/DL Sodium Level 141 MEQ/L Potassium Level 3.8 MEQ/L Chloride Level 103 MEQ/L Carbon Dioxide Level 30.4 MEQ/L Anion Gap 8 MEQ/L Estimat Glomerular Filtration Rate 78 ML/MIN Magnesium Level 2.2 MG/DL Total Bilirubin 0.9 MG/DL Direct Bilirubin 0.1 MG/DL Indirect Bilirubin 0.8 MG/DL Aspartate Amino Transf (AST/SGOT) 20 U/L Alanine Aminotransferase (ALT/SGPT) 26 U/L Alkaline Phosphatase 102 U/L Total Creatine Kinase 86 U/L Troponin I 0.03 NG/ML B-Type Natriuretic Peptide 33 PG/ML Total Protein 7.7 GM/DL Albumin 3.5 GM/DL Lipase 138 U/L MDM Medical Decision Making Medical Screen Exam Complete: Yes Emergency Medical Condition: Yes Medical Record Reviewed: Yes Interpretation(s) Last Impressions Chest X-Ray 07/01/17 1207 Signed Impressions: Service Date/Time: Saturday, July 01, 2017 12:16 - CONCLUSION: No acute cardiopulmonary abnormality is identified. Mike Lisa MD Laboratory Tests Test 07/01/17 12:15 White Blood Count 12.0 TH/MM3 Red Blood Count 4.31 MIL/MM3 Hemoglobin 8.9 GM/DL Hematocrit 30.0 % Mean Corpuscular Volume 69.7 FL Mean Corpuscular Hemoglobin 20.7 PG Mean Corpuscular Hemoglobin Concent 29.7 % Red Cell Distribution Width 18.5 % Platelet Count 416 TH/MM3 Mean Platelet Volume 7.9 FL Neutrophils (%) (Auto) 78.0 % Lymphocytes (%) (Auto) 11.7 % Monocytes (%) (Auto) 8.5 % Eosinophils (%) (Auto) 1.6 % Basophils (%) (Auto) 0.2 % Neutrophils # (Auto) 9.3 TH/MM3 Lymphocytes # (Auto) 1.4 TH/MM3 Monocytes # (Auto) 1.0 TH/MM3 Eosinophils # (Auto) 0.2 TH/MM3 Basophils # (Auto) 0.0 TH/MM3 CBC Comment DIFF FINAL Differential Comment Prothrombin Time 11.3 SEC Prothromb Time International Ratio 1.1 RATIO Activated Partial Thromboplast Time 25.4 SEC Blood Urea Nitrogen 24 MG/DL Creatinine 0.73 MG/DL Random Glucose 110 MG/DL Calcium Level 8.7 MG/DL Sodium Level 141 MEQ/L Potassium Level 3.8 MEQ/L Chloride Level 103 MEQ/L Carbon Dioxide Level 30.4 MEQ/L Anion Gap 8 MEQ/L Estimat Glomerular Filtration Rate 78 ML/MIN Magnesium Level 2.2 MG/DL Total Bilirubin 0.9 MG/DL Direct Bilirubin 0.1 MG/DL Indirect Bilirubin 0.8 MG/DL Aspartate Amino Transf (AST/SGOT) 20 U/L Alanine Aminotransferase (ALT/SGPT) 26 U/L Alkaline Phosphatase 102 U/L Total Creatine Kinase 86 U/L Troponin I 0.03 NG/ML B-Type Natriuretic Peptide 33 PG/ML Total Protein 7.7 GM/DL Albumin 3.5 GM/DL Lipase 138 U/L Vital Signs Date Time Temp Pulse Resp B/P (MAP) Pulse Ox O2 Delivery O2 Flow Rate FiO2 07/01/17 12:19 96 Nasal Cannula 2.00 07/01/17 12:18 98.8 95 16 149/71 (97) 96 Nasal Cannula 2.00 07/01/17 11:49 99.3 92 18 135/64 (87) 96 Differential Diagnosis He was a versus ACS versus CHF versus deconditioning versus metabolic abnormality versus other Narrative Course Patient is well-appearing 77-year-old female presenting for evaluation of chest pain. She initially stated it started this morning and then stated started last night. She then stated it has been ongoing since she has been in the hospital. Patient recently underwent cardiac cath with placement of [address] Charles. Labs and imaging ordered and pending. IV access established , patient placed on telemetry monitoring continuous pulse oximetry. Medical records reviewed. CBC with a stable anemia, white count of 12.0 with slight left shift Chemistry with no acute findings Troponin 0 0.03 BNP is 33 Urinalysis is unremarkable Chest x-ray shows no acute disease Discussed findings and patient's presenting complaints with Dr. Gaona, he is aware that patient had stent placement on the with Dr. Charles and has had chest pain since that time. He recommended patient be placed in the chest pain center for evaluation monitoring. Diagnosis Primary Impression: Chest pain Qualified Codes: R07.9 - Chest pain, unspecified Admitting Information Admitting Physician Requests: Observation Condition: Stable Ann Tapia Tarah ROSS Jul 01, 2017 12:29
[2017-07-01 12:44] VITALS: BP_SYST 146; BP_SYST 150; BP_DIAS 66; BP_DIAS 71; PULSE 94; RESP 22; TEMP 97.8; O2SAT 97
--- NOTE | 2017-07-01 12:45 | RADRPT ---
EXAM DATE/TIME: 07/01/2017 12:16 [facility] COMPARISON: CHEST SINGLE AP, June 26, 2017, 11:51. INDICATIONS : Chest pain. MEDICAL HISTORY : Hiatal hernia. Hypertension. SURGICAL HISTORY : Stents x 2 ENCOUNTER: Initial ACUITY: 2 days PAIN SCORE: 6/10 LOCATION: Bilateral chest FINDINGS: Portable AP view of the chest demonstrates a normal-sized cardiac silhouette. EKG lines overlie the p atient. There is mild atelectasis at the left lung base. No effusion, consolidation, or pneumothorax is visualized. The bones and soft tissues demonstrate no acute finding. CONCLUSION: No acute cardiopulmonary abnormality is identified. Mike Lisa MD on July 01, 2017 at 12:43 Board Certified Radiologist. This report was verified electronically.
[2017-07-01 12:48] LABS: AUTOMATED NEUTROPHIL # 9.3 TH/MM3 (1.8-7.7); BASOPHIL % 0.2 % (0.0-2.0); EOSINOPHIL # 0.2 TH/MM3 (0-0.4); EOSINOPHIL % 1.6 % (0.0-4.0); HEMOGLOBIN 8.9 GM/DL (11.6-15.3); LYMPH % 11.7 % (9.0-44.0); LYMPHOCYTE # 1.4 TH/MM3 (1.0-4.8); MEAN CELL VOLUME 69.7 FL (80.0-100.0); MEAN CORPUSCULAR HEMOGLOBIN 20.7 PG (27.0-34.0); MEAN PLATELET VOLUME 7.9 FL (7.0-11.0); MONO % 8.5 % (0.0-8.0); PLATELET COUNT 416 TH/MM3 (150-450); RED BLOOD COUNT 4.31 MIL/MM3 (4.00-5.30); RED CELL DISTRIBUTION WIDTH 18.5 % (11.6-17.2)
[2017-07-01 12:54] LABS: MEAN CORPUSCULAR HGB CONC 29.7 % (32.0-36.0)
[2017-07-01 12:57] LABS: INTERNATIONAL NORMALIZED RATIO 1.1 RATIO; PROTHROMBIN TIME - PATIENT 11.3 SEC (9.8-11.6)
[2017-07-01 13:05] LABS: ALBUMIN 3.5 GM/DL (3.4-5.0); DIRECT BILIRUBIN ADULT 0.1 MG/DL (0.0-0.2); MAGNESIUM 2.2 MG/DL (1.5-2.5)
[2017-07-01 13:08] LABS: INDIRECT BILIRUBIN 0.8 MG/DL (0.0-0.8); TOTAL BILIRUBIN ADULT 0.9 MG/DL (0.2-1.0); TOTAL PROTEIN 7.7 GM/DL (6.4-8.2)
[2017-07-01 13:13] LABS: BICARBONATE 30.4 MEQ/L (21.0-32.0); CALCIUM 8.7 MG/DL (8.5-10.1); CREATININE 0.73 MG/DL (0.50-1.00); TROPONIN I 0.03 NG/ML (0.02-0.05)
[2017-07-01 14:29] VITALS: BP 146/66; PULSE 98; RESP 18; O2SAT 97
--- NOTE | 2017-07-01 15:03 | HHI.HP ---
HPI Primary Care Physician Unknown Chief Complaint Chest pressure History of Present Illness This is a 77-year-old female with history of CAD with recent stents a few days ago and occluded stent to the mid and distal RCA. Presents complaining of continued chest pressure that she states been constant for 3 weeks. States it did not improve after the stents. She states that she is upset that while in the hospital she was placed on Lasix but discharged on her home medication of Bumex and feels as if it is not working as well. She has been short of breath. States the shortness breath has not worsened, it is the same that was prior to being discharged. Denies nausea or diaphoresis. Review of Systems General: Patient denies fevers, chills, and recent travel HEENT: Patient denies headache, sore throat, difficulty swallowing. Cardiovascular: Has the chest discomfort as mentioned above. Denies sensation of heart beating rapidly or irregularly. No syncope. Denies diaphoresis. Respiratory: She has been short of breath. Denies inspirational chest discomfort. Denies coughing wheezing or hemoptysis. GI: Patient denies nausea, vomiting, diarrhea, abdominal pain, bloody stools. Musculoskeletal: Patient denies joint pain or edema. Denies calf pain. Legs have been swollen but states it is better than prehospitalization. Neurovascular: Patient denies numbness, tingling, weakness in extremities. Denies headache. Endocrine: Denies polyuria and polydipsia. Hematologic: Denies easy bruising. Skin: Denies rash or itching. Past Family Social History Allergies: Coded Allergies: No Known Allergies (Verified Allergy, Unknown, 06/26/17) Past Medical History CAD with 2 stents of the RCA. Diabetes, hypertension, anemia, and hyperlipidemia. Past Surgical History Cardiac catheterization with stenting a few days ago. Umbilical hernia repair. Right eye. Reported Medications Reported Meds & Active Scripts Active Klor-Con 10 (Potassium Chloride) 10 Meq Tab 10 Meq PO DAILY Tgt Aspirin (Aspirin) 81 Mg Chw 81 Mg PO DAILY Metoprolol Tartrate 25 Mg Tab 12.5 Mg PO Q12HR Atorvastatin (Atorvastatin Calcium) 80 Mg Tab 80 Mg PO HS Brilinta (Ticagrelor) 90 Mg Tab 90 Mg PO BID Reported Centrum (Multiple Vitamins W/ Minerals) 1 Chew 1 Tab CHEW DAILY D3 Ultra Strength (Cholecalciferol) 5,000 Unit Cap 5,000 Units PO DAILY Bumetanide 1 Mg Tab 1 Mg PO DAILY Omeprazole 20 Mg Tab 20 Mg PO BID Losartan (Losartan Potassium) 25 Mg Tab 25 Mg PO DAILY Diltiazem ER 24 HR 240 Mg Caper 240 Mg PO HS Active Ordered Medications Current Medications Medications (Trade) Dose Ordered Sig/Van Route Start Time Stop Time Status Last Admin (Tylenol) 500 mg Q4H PRN PO 07/01/17 14:45 UNV (Edroy 7.5-325 Mg) 1 tab Q4H PRN PO 07/01/17 14:45 UNV (Zofran Inj) 4 mg Q6H PRN IV PUSH 07/01/17 14:45 UNV Family History There is family history of CAD. Social History Quit smoking 20 years ago. Denies alcohol or illicit drug use. Physical Exam Vital Signs Vital Signs Date Time Temp Pulse Resp B/P (MAP) Pulse Ox O2 Delivery O2 Flow Rate FiO2 07/01/17 14:29 98 18 146/66 (92) 97 Nasal Cannula 2.00 07/01/17 12:44 97.8 94 22 150/71 (97) 97 Nasal Cannula 2.00 146/66 (92) 07/01/17 12:27 94 96 Nasal Cannula 2.00 07/01/17 12:26 94 17 149/71 (97) 96 Nasal Cannula 2.00 07/01/17 12:19 96 Nasal Cannula 2.00 07/01/17 12:18 98.8 95 16 149/71 (97) 96 Nasal Cannula 2.00 07/01/17 11:49 99.3 92 18 135/64 (87) 96 Physical Exam GENERAL: This is a well-nourished, well-developed patient, in no apparent distress. Patient speaks in clear complete sentences. Patient is pleasant. HEENT: Head is atraumatic and normocephalic. Neck is supple without lymphadenopathy and trachea is midline. No JVD or carotid bruits. CARDIOVASCULAR: Grade 2 systolic murmur right sternal border radiating to the neck. Regular rate and rhythm without gallops, or rubs. RESPIRATORY: Clear to auscultation. Breath sounds equal bilaterally. No wheezes , rales, or rhonchi. Chest wall is nontender. No use of accessory muscles. GASTROINTESTINAL: Abdomen is nontender, nondistended. Abdomen soft. No obvious pulsatile mass or bruit. No CVA tenderness. Strong femoral pulses bilaterally. Normal bowel sounds in all quadrants. MUSCULOSKELETAL: 1+ edema bilateral lower extremities. States this is improved from prior to her last admission. Patient is moving upper and lower extremities freely. No calf tenderness and no Homans sign. Strong pulses in upper and lower extremities. NEUROLOGICAL: Patient is alert and oriented. Cranial nerves 2-12 are grossly intact. No focal deficits and speech is clear. SKIN: No rash and turgor is normal. Laboratory Laboratory Tests Test 07/01/17 12:15 White Blood Count 12.0 Red Blood Count 4.31 Hemoglobin 8.9 Hematocrit 30.0 Mean Corpuscular Volume 69.7 Mean Corpuscular Hemoglobin 20.7 Mean Corpuscular Hemoglobin Concent 29.7 Red Cell Distribution Width 18.5 Platelet Count 416 Mean Platelet Volume 7.9 Neutrophils (%) (Auto) 78.0 Lymphocytes (%) (Auto) 11.7 Monocytes (%) (Auto) 8.5 Eosinophils (%) (Auto) 1.6 Basophils (%) (Auto) 0.2 Neutrophils # (Auto) 9.3 Lymphocytes # (Auto) 1.4 Monocytes # (Auto) 1.0 Eosinophils # (Auto) 0.2 Basophils # (Auto) 0.0 CBC Comment DIFF FINAL Differential Comment Prothrombin Time 11.3 Prothromb Time International Ratio 1.1 Activated Partial Thromboplast Time 25.4 Blood Urea Nitrogen 24 Creatinine 0.73 Random Glucose 110 Calcium Level 8.7 Sodium Level 141 Potassium Level 3.8 Chloride Level 103 Carbon Dioxide Level 30.4 Anion Gap 8 Estimat Glomerular Filtration Rate 78 Magnesium Level 2.2 Total Bilirubin 0.9 Direct Bilirubin 0.1 Indirect Bilirubin 0.8 Aspartate Amino Transf (AST/SGOT) 20 Alanine Aminotransferase (ALT/SGPT) 26 Alkaline Phosphatase 102 Total Creatine Kinase 86 Troponin I 0.03 B-Type Natriuretic Peptide 33 Total Protein 7.7 Albumin 3.5 Lipase 138 Result Diagram: 07/01/17 1215 07/01/17 1215 Imaging Last 48 hours Impressions Chest X-Ray 07/01/17 1207 Signed Impressions: Service Date/Time: Saturday, July 01, 2017 12:16 - CONCLUSION: No acute cardiopulmonary abnormality is identified. Mike Lisa MD Course Initial EKG is left bundle branch block. Caprini VTE Risk Assessment Caprini VTE Risk Assessment: Mod/High Risk (score >= 2) Caprini Risk Assessment Model Point Value = 1 Point Value = 2 Point Value = 3 Point Value = 5 Age 41-60 Minor surgery BMI > 25 kg/m2 Swollen legs Varicose veins or History of unexplained or recurrent spontaneous Oral contraceptives or hormone replacement Sepsis (< 1 month) Serious lung disease, including pneumonia (< 1 month) Abnormal pulmonary function Acute myocardial infarction Congestive heart failure (< 1 month) History of inflammatory bowel disease Medical patient at bed rest Age 61-74 Arthroscopic surgery Major open surgery (> 45 min) Laparoscopic surgery (> 45 min) Malignancy Confined to bed (> 72 hours) Immobilizing plaster cast Central venous access Age >= 75 History of VTE Family history of VTE Factor V Leiden Prothrombin [id number] Lupus anticoagulant Anticardiolipin antibodies Elevated serum homocysteine Heparin-induced thrombocytopenia Other congenital or acquired thrombophilia Stroke (< 1 month) Elective arthroplasty Hip, pelvis, or leg fracture Acute spinal cord injury (< 1 month) Prophylaxis Regimen Total Risk Factor Score Risk Level Prophylaxis Regimen 0-1 Low Early ambulation 2 Moderate Order ONE of the following: *Sequential Compression Device (SCD) *Heparin 5000 units SQ BID 3-4 Higher Order ONE of the following medications: *Heparin 5000 units SQ TID *Enoxaparin/Lovenox 40 mg SQ daily (WT < 150 kg, CrCl > 30 mL/min) *Enoxaparin/Lovenox 30 mg SQ daily (WT < 150 kg, CrCl > 10-29 mL/min) *Enoxaparin/Lovenox 30 mg SQ BID (WT < 150 kg, CrCl > 30 mL/min) AND/OR *Sequential Compression Device (SCD) 5 or more Highest Order ONE of the following medications: *Heparin 5000 units SQ TID (Preferred with Epidurals) *Enoxaparin/Lovenox 40 mg SQ daily (WT < 150 kg, CrCl > 30 mL/min) *Enoxaparin/Lovenox 30 mg SQ daily (WT < 150 kg, CrCl > 10-29 mL/min) *Enoxaparin/Lovenox 30 mg SQ BID (WT < 150 kg, CrCl > 30 mL/min) AND *Sequential Compression Device (SCD) Assessment and Plan Assessment and Plan * Chest pain: I discussed this patient with Dr. Charles. He has recommended that the patient get injection of IV Lasix and repeat troponin. States that if second troponin is not trending upward then she can be discharged and he will be glad to see her in the office. I discussed this with the patient and she is okay with this but she is requesting to have her Bumex switched to Lasix. I discussed this with Dr. Charles and he is okay with that. Patient will be evaluated by Dr. Villareal of cardiology and the chest pain center. Plan likely will be to repeat troponin. Give IV injection of Lasix. Rx of Lasix instead of Bumex. And have her follow-up with Dr. Charles. Return to ED for interval issues. * CAD: Continue her meds. * Hypertension: Continue medications. * Hyperlipidemia: Continue medications. Patient is stable at this time. She is agreeable to this plan. Keon Richmond Jul 01, 2017 15:03
[2017-07-01] MEDS ORDERED: ONDANSETRON HCL 4 MG/2 ML VIAL IV PUSH PRN (15:30)
[2017-07-01] MEDS ORDERED: FUROSEMIDE 20 MG/2 ML VIAL IV PUSH ONE (15:30)
[2017-07-01] MEDS ORDERED: ACETAMINOPHEN 500 MG CPLT PO PRN (15:30)
[2017-07-01] MEDS ORDERED: ACETAMINOPHEN/HYDROcodone 325 MG/7.5 MG TAB PO PRN (15:30)
[2017-07-01 16:54] LABS: TROPONIN I 0.03 NG/ML (0.02-0.05)
[2017-07-01 17:04] VITALS: BP 124/58; PULSE 98; RESP 20; TEMP 98.2; O2SAT 96
[2017-07-01] MEDS ORDERED: FURO1TAB62 PO (17:09)
--- NOTE | 2017-07-01 17:09 | HHI.DCPOC ---
Discharge Care Plan Diagnosis: (1) Chest pain (2) CAD (coronary artery disease) (3) H/O heart artery stent (4) Chronic a-fib (5) Hypertension (6) Hyperlipidemia (7) DM (diabetes mellitus) Goals to Promote Your Health HAVE BMP(LAB DRAW) IN ONE WEEK WITH YOUR PHYSICIAN TO RECHECK YOUR ELECTROLYTES. * To prevent worsening of your condition and complications * To maintain your health at the optimal level Directions to Meet Your Goals Take your medications as prescribed Follow your dietary instruction Follow activity as directed Keep your appointments as scheduled Take your immunizations and boosters as scheduled If your symptoms worsen call your PCP, if no PCP go to Urgent Care Center or Emergency Room Smoking is Dangerous to Your Health. Avoid second hand smoke Call the 24-hour hour crisis hotline for domestic abuse at Keon [place] Jul 01, 2017 17:09
[2017-07-01] MEDS ORDERED: GLUCAGON 1 MG/ML VIAL OTHER PRN (17:15)
[2017-07-01] MEDS ORDERED: DEXTROSE 50% IN WATER 50 ML VIAL(D50) IV PUSH PRN (17:15)
--- NOTE | 2017-07-01 17:33 | EKG ---
Date Performed: 07/01/2017 Time Performed: 15:59:58 PTAGE: 77 years EKG: Sinus rhythm WITH FIRST DEGREE AV BLOCK MARKED LEFT AXIS DEVIATION LEFT BUNDLE BRANCH BLOCK ABNORMAL ECG Since PREVIOUS TRACING , no significant change noted DOCTOR: Danni Villareal Interpretating Date/Time 07/01/2017 17:32:02
[2017-07-01] MEDS ORDERED: INSULIN ASPART SUPPLEMENTAL SCALE SQ SCH ×2 (21:00)
--- NOTE | 2017-07-02 16:39 | EKG ---
Date Performed: 07/01/2017 Time Performed: 11:55:46 PTAGE: 77 years EKG: First degree AV block with MT interval of .24 Left bundle branch block Left axis deviation Compared to previous tracing, tracing was interpreted as atrial fibrillation, but it appears to be Si nus rhythm with first-degree AV block with PACs. No other significant change has occurred. ABNORMAL ECG PREVIOUS TRACING : 06/26/2017 21.41 DOCTOR: Sabas Feliciano Interpretating Date/Time 07/02/2017 16:38:19
== END 2017-07-01 19:50 | disposition home or self-care (01) ==
LOC: NEPE 11:47 → NEDA 13:53 → NEPHCDU 16:16
PROVIDERS: ADMIT Internal Medicine Interventional Cardiology; ATTEND Internal Medicine Interventional Cardiology
DX: R07.89 Other chest pain (principal); R06.02 Shortness of breath; D64.9 Anemia, unspecified; I25.10 Atherosclerotic heart disease of native coronary artery without angina pectoris; I10 Essential (primary) hypertension; I44.7 Left bundle-branch block, unspecified; I44.0 Atrioventricular block, first degree; R94.31 Abnormal electrocardiogram [ECG] [EKG]; I48.2 Chronic atrial fibrillation; E78.5 Hyperlipidemia, unspecified; E11.9 Type 2 diabetes mellitus without complications; K21.9 Gastro-esophageal reflux disease without esophagitis; R60.0 Localized edema; M19.90 Unspecified osteoarthritis, unspecified site; Z79.899 Other long term (current) drug therapy; Z79.82 Long term (current) use of aspirin; Z87.891 Personal history of nicotine dependence; Z95.5 Presence of coronary angioplasty implant and graft
CPT/HCPCS: 71045; 80048; 80076; 82550; 83690; 83735; 83880; 84484; 85025; 85610; 85730; 93005; 96374; 99285; G0378; J1940

== ENCOUNTER 2017-07-04 10:35 | Observation (INO) | payer OTHER ==
[2017-07-04] VITALS (11 sets, daily range): BP systolic 127–173; BP diastolic 63–91; PULSE 88–115; RESP 18–22; TEMP 98.5–100.5; O2SAT 94–97
[~2017-07-04] VITALS: Ht 160 cm; Wt 118.0 kg
[~2017-07-04 10:35] MED LIST changes: -BUME1TAB PO; +FURO1TAB62 PO
--- NOTE | 2017-07-04 10:48 | PD ---
HPI Chief Complaint: cp Time Seen by Provider: 10:49 Travel History International Travel<30 days: No Contact w/Intl Traveler<30days: No Traveled to known affect area: No History of Present Illness HPI Patient comes in complaining of chest pain, pressure, 5/10, nonrad, no alleviating/aggravating factors. denies assoc factors such as fever/cough/ runny nose/sore throat/n/v/d/backpain/abdpain Upon review there is a dictated report by Dr. Charles, vp of technology, whose heart cath results showed 99% stenosis in the midportion of the RCA and 90% stenosis distal portion... And this was the area that apparently was stented. Per report status post drug eluting stent 2 to the RCA as well as acute heart failure possibly due to ischemia No known drug allergy Past medical history significant for hypercholesterolemia atrial fibrillation hypertension GERD umbilical hernia repair diabetes. Apparently the patient had a coronary stent placed yesterday? PFSH Past Medical History Arthritis: Yes Heart Rhythm Problems: Yes (a-fib this admit, per ED) Cardiovascular Problems: Yes High Cholesterol: Yes Chest Pain: Yes (this admit) Diabetes: Yes (type 2, diet controlled) Gastrointestinal Disorders: Yes GERD: Yes Heparin Induced Thrombocytopen: No Hypertension: Yes Implanted Vascular Access Dvce: Yes Musculoskeletal: Yes Neurologic: Yes Respiratory: Yes Migraines: No Seizures: No Sickle Cell Disease: No Sleep Apnea: No Thyroid Disease: No Ulcer: No Past Surgical History Abdominal Surgery: Yes (ubilical hernia repair) AICD: No Body Medical Devices: right eye lens Cardiac Surgery: No Ear Surgery: No Endocrine Surgery: No Eye Surgery: Yes (right eye lens) Genitourinary Surgery: Yes (colonoscopy a couple years ago) Gynecologic Surgery: No Insulin Pump: No Joint Replacement: Yes (right knee) Neurologic Surgery: No Oral Surgery: No Pacemaker: No Thoracic Surgery: No Other Surgery: Yes Social History Alcohol Use: No Tobacco Use: No (Former smoker) Substance Use: No Allergies-Medications (Allergen,Severity, Reaction): Coded Allergies: No Known Allergies (Verified Allergy, Unknown, 07/04/17) Reported Meds & Prescriptions Reported Meds & Active Scripts Active Lasix (Furosemide) 20 Mg Tab 20 Mg PO DAILY Klor-Con 10 (Potassium Chloride) 10 Meq Tab 10 Meq PO DAILY Tgt Aspirin (Aspirin) 81 Mg Chw 81 Mg PO DAILY Atorvastatin (Atorvastatin Calcium) 80 Mg Tab 80 Mg PO HS Brilinta (Ticagrelor) 90 Mg Tab 90 Mg PO BID Reported Centrum (Multiple Vitamins W/ Minerals) 1 Chew 1 Tab CHEW DAILY D3 Ultra Strength (Cholecalciferol) 5,000 Unit Cap 5,000 Units PO DAILY Omeprazole 20 Mg Tab 20 Mg PO BID Losartan (Losartan Potassium) 25 Mg Tab 25 Mg PO DAILY Diltiazem ER 24 HR 240 Mg Caper 240 Mg PO HS Review of Systems General / Constitutional: No: Fever Eyes: No: Visual changes HENT: No: Headaches Cardiovascular: Positive: Chest Pain or Discomfort Respiratory: No: Shortness of Breath Gastrointestinal: No: Abdominal Pain Genitourinary: No: Dysuria Musculoskeletal: No: Pain Skin: No Rash Neurologic: No: Weakness Psychiatric: No: Depression Endocrine: No: Polydipsia Hematologic/Lymphatic: No: Easy Bruising Physical Exam Narrative GENERAL: SKIN: Warm and dry. HEAD: Atraumatic. Normocephalic. EYES: Pupils equal and round. No scleral icterus. No injection or drainage. ENT: No nasal bleeding or discharge. Mucous membranes pink and moist. NECK: Trachea midline. No JVD. CARDIOVASCULAR: Regular rate and rhythm. RESPIRATORY: No accessory muscle use. Clear to auscultation. Breath sounds equal bilaterally. GASTROINTESTINAL: Abdomen soft,nondistended, no rebound/guarding/rigidity noted MUSCULOSKELETAL: Extremities without clubbing, cyanosis, or edema. No obvious deformities. NEUROLOGICAL: Awake and alert. No obvious cranial nerve deficits. Motor grossly within normal limits. Five out of 5 muscle strength in the arms and legs. Normal speech. PSYCHIATRIC: Appropriate mood and affect; insight and judgment normal. Data Data Last Documented VS Orders Orders Electrocardiogram (07/04/17 10:49) B-Type Natriuretic Peptide (07/04/17 10:49) Ckmb (Isoenzyme) Profile (07/04/17 10:49) Complete Blood Count With Diff (07/04/17 10:49) Comprehensive Metabolic Panel (07/04/17 10:49) Prothrombin Time / Inr (Pt) (07/04/17 10:49) Act Partial Throm Time (Ptt) (07/04/17 10:49) Troponin I (07/04/17 10:49) Lipase (07/04/17 10:49) Chest, Single Ap (07/04/17 10:49) Ecg Monitoring (07/04/17 10:49) Bilateral Bp Monitoring (07/04/17 10:49) Iv Access Insert/Monitor (07/04/17 10:49) Oximetry (07/04/17 10:49) Morphine Inj (Morphine Inj) (07/04/17 11:00) Nitroglycerin 2% Oint (Nitroglycerin 2% (07/04/17 11:00) Sodium Chloride 0.9% Flush (Ns Flush) (07/04/17 11:00) Admit Order (Ed Use Only) (07/04/17 12:28) Place In Observation (07/04/17 ) Vital Signs (Adult) Q4H (07/04/17 12:27) Activity Bed Rest With Brp (07/04/17 ) Delivery Nurse / Telemetry [id number] (07/04/17 12:27) Diet Heart Healthy (07/04/17 Lunch) Sodium Chloride 0.9% Flush (Ns Flush) (07/04/17 21:00) Sodium Chloride 0.9% Flush (Ns Flush) (07/04/17 12:30) Aspirin (Aspirin) (07/05/17 09:00) Nitroglycerin Sl (Nitrostat Sl) (07/04/17 12:30) Acetaminophen (Tylenol) (07/04/17 12:30) Diltiazem Cd (Cardizem Cd) (07/04/17 21:00) Furosemide (Lasix) (07/05/17 09:00) Losartan (Cozaar) (07/05/17 09:00) Potassium Chloride (Kcl) (07/05/17 09:00) Ticagrelor (Brilinta) (07/04/17 21:00) Pantoprazole (Protonix) (07/04/17 21:00) Morphine Inj (Morphine Inj) (07/04/17 13:00) Atorvastatin (Lipitor) (07/04/17 21:00) Labs Laboratory Tests Test 07/04/17 11:10 White Blood Count 8.7 TH/MM3 Red Blood Count 4.20 MIL/MM3 Hemoglobin 8.7 GM/DL Hematocrit 29.3 % Mean Corpuscular Volume 69.9 FL Mean Corpuscular Hemoglobin 20.6 PG Mean Corpuscular Hemoglobin Concent 29.5 % Red Cell Distribution Width 18.1 % Platelet Count 341 TH/MM3 Mean Platelet Volume 7.5 FL Neutrophils (%) (Auto) 80.5 % Lymphocytes (%) (Auto) 6.7 % Monocytes (%) (Auto) 10.0 % Eosinophils (%) (Auto) 1.1 % Basophils (%) (Auto) 1.7 % Neutrophils # (Auto) 7.0 TH/MM3 Lymphocytes # (Auto) 0.6 TH/MM3 Monocytes # (Auto) 0.9 TH/MM3 Eosinophils # (Auto) 0.1 TH/MM3 Basophils # (Auto) 0.1 TH/MM3 CBC Comment AUTO DIFF Differential Comment AUTO DIFF CONFIRMED Platelet Estimate NORMAL Platelet Morphology Comment NORMAL Ovalocytes 1+ Stomatocytes 1+ Prothrombin Time 11.5 SEC Prothromb Time International Ratio 1.1 RATIO Activated Partial Thromboplast Time 26.6 SEC Blood Urea Nitrogen 22 MG/DL Creatinine 0.63 MG/DL Random Glucose 117 MG/DL Total Protein 7.3 GM/DL Albumin 3.2 GM/DL Calcium Level 8.3 MG/DL Alkaline Phosphatase 98 U/L Aspartate Amino Transf (AST/SGOT) 12 U/L Alanine Aminotransferase (ALT/SGPT) 20 U/L Total Bilirubin 0.6 MG/DL Sodium Level 138 MEQ/L Potassium Level 3.3 MEQ/L Chloride Level 103 MEQ/L Carbon Dioxide Level 28.3 MEQ/L Anion Gap 7 MEQ/L Estimat Glomerular Filtration Rate 92 ML/MIN Total Creatine Kinase 65 U/L Troponin I LESS THAN 0.02 NG/ML B-Type Natriuretic Peptide 58 PG/ML Lipase 143 U/L [facility] Medical Decision Making Medical Screen Exam Complete: Yes Emergency Medical Condition: Yes Medical Record Reviewed: Yes Interpretation(s) EKG shows normal sinus rhythm, 92 bpm, first-degree AV block, left bundle branch block pattern noted. No STEMI pattern noted. Differential Diagnosis Unstable angina versus stable angina versus collapsed stent versus non-STEMI versus STEMI versus pneumonia Narrative Course CBC shows no leukocytosis, but anemia of 8.7/29, normal platelet count, no left shift. Coagulation profile is within normal limits Chemistry shows normal electrolytes, normal kidney/liver/pancreas function. Negative troponin and CPK. Normal beta natruretic peptide Chest x-ray read by radiologist as chronic interstitial changes within the pulmonary parenchyma without any acute abnormalities. Diagnosis Primary Impression: Chest pain rule out stent collapse Scripts Fexofenadine (Rosie Allergy) 180 Mg Tab 180 MG PO DAILY for Allergy Management, #30 TAB 0 Refills Prov: Guilherme Solis MD 07/05/17 Methylprednisolone Dosepak (Medrol Dosepak) 4 Mg Dspk 4 MG PO DIRECTED, #1 DSPK 0 Refills Per Pharmacist direction Prov: Guilherme Solis MD 07/05/17 Azithromycin (Zithromax Z-Shahid) 250 Mg Dspk 250 MG PO DIRECTED for Infection, #1 DSPK 0 Refills 500 MG (2 tabs) day 1, then 1 tab days 2-5. Prov: Guilherme Solis MD 07/05/17 [guaiFENesin ER] 600 MG TABCR No Conflict Check 600 MG PO BID, #20 Prov: Guilherme Solis MD 07/05/17 Ibuprofen (Ibuprofen) 400 Mg Tab 400 MG PO Q8HR for Pain Management, #30 TAB Prov: Guilherme Solis MD 07/05/17 Loratadine (Claritin) 10 Mg Tablet 10 MG PO DAILY for Infection, #30 MG Prov: Guilherme Solis MD 07/05/17 Severino Ramirez MD Jul 04, 2017 10:48
[2017-07-04] MEDS ORDERED: SODIUM CHLORIDE 0.9% FLUSH 10 ML FLUSH IVF PRN (11:00)
[2017-07-04] MEDS ORDERED: NITROGLYCERIN 2% OINT 1 GM PACKET TOP ONE (11:00)
[2017-07-04] MEDS ORDERED: MORPHINE SULFATE 4 MG/ML INJ IV PUSH ONE (11:00)
[2017-07-04 11:22] LABS: BASOPHIL # 0.1 TH/MM3 (0-0.2); BASOPHIL % 1.7 % (0.0-2.0); EOSINOPHIL # 0.1 TH/MM3 (0-0.4); EOSINOPHIL % 1.1 % (0.0-4.0); HEMATOCRIT 29.3 % (35.0-46.0); HEMOGLOBIN 8.7 GM/DL (11.6-15.3); LYMPH % 6.7 % (9.0-44.0); LYMPHOCYTE # 0.6 TH/MM3 (1.0-4.8); MEAN CELL VOLUME 69.9 FL (80.0-100.0); MEAN CORPUSCULAR HEMOGLOBIN 20.6 PG (27.0-34.0); MEAN PLATELET VOLUME 7.5 FL (7.0-11.0); MONOCYTE # 0.9 TH/MM3 (0-0.9); NEUT % 80.5 % (16.0-70.0); PLATELET COUNT 341 TH/MM3 (150-450); RED CELL DISTRIBUTION WIDTH 18.1 % (11.6-17.2); WHITE BLOOD COUNT 8.7 TH/MM3 (4.0-11.0)
[2017-07-04 11:27] LABS: CHLORIDE 103 MEQ/L (98-107); MEAN CORPUSCULAR HGB CONC 29.5 % (32.0-36.0); SODIUM (NA) 138 MEQ/L (136-145)
[2017-07-04 11:30] LABS: CALCIUM 8.3 MG/DL (8.5-10.1)
[2017-07-04 11:31] LABS: ALBUMIN 3.2 GM/DL (3.4-5.0); BICARBONATE 28.3 MEQ/L (21.0-32.0); BLOOD UREA NITROGEN 22 MG/DL (7-18); GLUCOSE,RANDOM 117 MG/DL (74-106); INTERNATIONAL NORMALIZED RATIO 1.1 RATIO; PROTHROMBIN TIME - PATIENT 11.5 SEC (9.8-11.6)
[2017-07-04 11:34] LABS: ALT (GPT) 20 U/L (10-53); AST (GOT) 12 U/L (15-37); CREATININE 0.63 MG/DL (0.50-1.00); GLOMERULAR FILTRATION RATE 92 ML/MIN (>89)
--- NOTE | 2017-07-04 11:34 | RADRPT ---
EXAM DATE/TIME: 07/04/2017 11:15 [place] COMPARISON: CHEST SINGLE AP, July 01, 2017, 12:16. INDICATIONS : Chest pain MEDICAL HISTORY : Gastroesophageal reflux disease. Hypertension SURGICAL HISTORY : Total knee replacement, left. Inguinal hernia repair. ENCOUNTER: Initial ACUITY: 2 days PAIN SCORE: 6/10 LOCATION: Bilateral chest FINDINGS: The heart is normal in size. There is chronic interstitial changes within the pulmonary parenchyma tejada ggesting COPD. No suspicious lesions are seen within the pulmonary parenchyma. The visualized bony st ructures are grossly intact. The exam is unchanged compared to previous dated 07/01/17. CONCLUSION: 1. Chronic interstitial changes within the pulmonary parenchyma. No acute abnormality. Ayaan Moreno MD on July 04, 2017 at 11:30 Board Certified Radiologist. This report was verified electronically.
[2017-07-04 11:35] LABS: TOTAL BILIRUBIN ADULT 0.6 MG/DL (0.2-1.0); TOTAL PROTEIN 7.3 GM/DL (6.4-8.2)
[2017-07-04 11:37] LABS: ALKALINE PHOSPHATASE 98 U/L (45-117)
[2017-07-04 11:39] LABS: TROPONIN I LESS THAN 0.02 NG/ML (0.02-0.05)
[2017-07-04 12:03] LABS: OVALOCYTES 1+ (NORMAL); STOMATOCYTES 1+ (NORMAL)
[2017-07-04] MEDS ORDERED: NITROGLYCERIN 0.4 MG SL 25 TABS/BTL SL PRN (12:30)
[2017-07-04] MEDS ORDERED: SODIUM CHLORIDE 0.9% FLUSH 10 ML FLUSH IV FLUSH PRN (12:30)
[2017-07-04] MEDS ORDERED: MORPHINE SULFATE 2 MG/ML INJ IV PUSH PRN (13:00)
[2017-07-04 17:26] LABS: TROPONIN I LESS THAN 0.02 NG/ML (0.02-0.05)
[2017-07-04] MEDS ORDERED: DILTIAZEM-CD 240 MG CAP ER PO SCH (21:00)
[2017-07-04] MEDS ORDERED: ATORVASTATIN 40 MG TAB PO SCH (21:00)
--- NOTE | 2017-07-04 21:25 | EKG ---
Date Performed: 07/04/2017 Time Performed: 10:42:53 PTAGE: 77 years EKG: Sinus rhythm WITH FIRST DEGREE AV BLOCK MARKED LEFT AXIS DEVIATION LEFT BUNDLE BRANCH BLOCK Since previous tracin g, no significant change noted ABNORMAL ECG PREVIOUS TRACING : 07/01/2017 15.59 DOCTOR: Danni Villareal Interpretating Date/Time 07/04/2017 21:24:23
[2017-07-04] MEDS: PANTOPRAZOLE SOD 20 MG DELAYED RELEASE TAB PO SCH (22:33)
[2017-07-04] MEDS: TICAGRELOR 90 MG TAB PO SCH (22:34)
[2017-07-04] MEDS: SODIUM CHLORIDE 0.9% FLUSH 10 ML FLUSH IV FLUSH SCH (22:34)
[2017-07-04] MEDS: ACETAMINOPHEN 500 MG CPLT PO PRN (22:50)
[2017-07-05] VITALS (10 sets, daily range): BP systolic 133–171; BP diastolic 51–78; PULSE 78–107; RESP 17–22; TEMP 97.8–98.9; O2SAT 93–95
[2017-07-05 02:36] LABS: TROPONIN I LESS THAN 0.02 NG/ML (0.02-0.05)
[2017-07-05] MEDS ORDERED: POTASSIUM CHLORIDE 10 MEQ CONTROLLED RELEASE TAB PO SCH (09:00)
[2017-07-05] MEDS ORDERED: FUROSEMIDE 20 MG TAB PO SCH (09:00)
[2017-07-05] MEDS ORDERED: ASPIRIN 325 MG TAB PO SCH (09:00)
[2017-07-05] MEDS ORDERED: LOSARTAN 25 MG TAB PO SCH (09:00)
[2017-07-05] MEDS: PANTOPRAZOLE SOD 20 MG DELAYED RELEASE TAB PO SCH (09:36)
[2017-07-05] MEDS: TICAGRELOR 90 MG TAB PO SCH (09:36)
[2017-07-05] MEDS: SODIUM CHLORIDE 0.9% FLUSH 10 ML FLUSH IV FLUSH SCH (09:37)
[2017-07-05] MEDS: ACETAMINOPHEN 500 MG CPLT PO PRN (10:43)
--- NOTE | 2017-07-05 11:50 | HHI.HP ---
[facility] Justus Fitzgerald MD Admission Diagnosis CHEST PAIN R/O STENT COLLAPSE Diagnoses: (1) Atypical chest pain (2) Costochondral chest pain Chief Complaint: chest pain Travel History International Travel<30 Days: No Contact w/Intl Traveler <30 Da: No Traveled to Known Affected Are: No History of Present Illness 77-year-old female patient with a known medical history of hypertension, hypercholesterolemia, GERD and CHF who presented to the ED with complaints of worsening dyspnea with associated chest pain as well as chronic cough however without any febrile episode. Substernal chest pain worsened with deep inspiration and cough. CXR without any Cardiopulmonary disease. ACS ruled out per protocol with 3 negatives cardiac enzymes. Patient reports some nasal as well URI. This AM, she reports some improvement of her chest pain Review of Systems Except as stated in HPI: all other systems reviewed are Neg Past Family Social History Past Medical History Dyslipidemia GERD Hypertension CHF Past Surgical History Left knee replacement Bilateral cataracts Hernia repair Reported Medications Lasix (Furosemide) 20 Mg Tab 20 Mg PO DAILY Klor-Con 10 (Potassium Chloride) 10 Meq Tab 10 Meq PO DAILY Tgt Aspirin (Aspirin) 81 Mg Chw 81 Mg PO DAILY Atorvastatin (Atorvastatin Calcium) 80 Mg Tab 80 Mg PO HS Brilinta (Ticagrelor) 90 Mg Tab 90 Mg PO BID Reported Centrum (Multiple Vitamins W/ Minerals) 1 Chew 1 Tab CHEW DAILY D3 Ultra Strength (Cholecalciferol) 5,000 Unit Cap 5,000 Units PO DAILY Omeprazole 20 Mg Tab 20 Mg PO BID Losartan (Losartan Potassium) 25 Mg Tab 25 Mg PO DAILY Diltiazem ER 24 HR 240 Mg Caper 240 Mg PO HS Allergies: Coded Allergies: No Known Allergies (Verified Allergy, Unknown, 07/04/17) Family History Maternal medical history significant for KS at the age of 72. Father had unspecified cancer. Social History Patient denies any tobacco, alcohol or illicit drug use. Physical Exam Vital Signs Vital Signs Date Time Temp Pulse Resp B/P (MAP) Pulse Ox O2 Delivery O2 Flow Rate FiO2 07/05/17 11:46 20 07/05/17 11:00 98.7 107 18 133/51 (78) 95 07/05/17 07:00 98.4 82 17 151/76 (101) 95 07/05/17 07:00 90 07/05/17 06:00 90 07/05/17 05:00 90 07/05/17 04:00 78 07/05/17 04:00 97.8 83 22 171/78 (109) 95 07/05/17 03:00 78 07/05/17 02:00 104 07/05/17 01:00 96 07/05/17 00:00 98.9 106 22 133/57 (82) 93 07/05/17 00:00 106 07/04/17 23:00 112 07/04/17 22:00 94 07/04/17 21:00 114 07/04/17 20:00 111 07/04/17 20:00 100.5 115 22 173/91 (118) 94 07/04/17 18:20 107 07/04/17 17:27 07/04/17 15:10 92 18 127/70 (89) 96 Room Air 07/04/17 13:28 100 20 136/63 (87) 97 07/04/17 12:22 88 18 147/71 (96) 94 Room Air Physical Exam GENERAL: This is a well-nourished, well-developed patient, in no apparent distress. SKIN: No rashes, ecchymoses or lesions. Cool and dry. HEAD: Atraumatic. Normocephalic. No temporal or scalp tenderness. EYES: Pupils equal round and reactive. Extraocular motions intact. No scleral icterus. No injection or drainage. ENT: Nose without bleeding, purulent drainage or septal hematoma. Throat without erythema, tonsillar hypertrophy or exudate. Uvula midline. Airway patent. NECK: Trachea midline. No JVD or lymphadenopathy. Supple, nontender, no meningeal signs. CARDIOVASCULAR: Regular rate and rhythm without murmurs, gallops, or rubs. RESPIRATORY: Clear to auscultation. Breath sounds equal bilaterally. No wheezes , rales, or rhonchi. GASTROINTESTINAL: Abdomen soft, non-tender, nondistended. No hepato-splenomegaly , or palpable masses. No guarding. MUSCULOSKELETAL: Extremities without clubbing, cyanosis, or edema. No joint tenderness, effusion, or edema noted. No calf tenderness. Negative Homans sign bilaterally. NEUROLOGICAL: Awake and alert. Cranial nerves II through XII intact. Motor and sensory grossly within normal limits. Five out of 5 muscle strength in all muscle groups. Normal speech. Laboratory Laboratory Tests Test 07/04/17 16:53 07/05/17 01:54 Total Creatine Kinase 60 60 Troponin I LESS THAN 0.02 LESS THAN 0.02 Result Diagram: 07/04/17 1110 07/04/17 1110 Imaging Last Impressions Chest X-Ray 07/04/17 1049 Signed Impressions: Service Date/Time: Tuesday, July 04, 2017 11:15 - CONCLUSION: 1. Chronic interstitial changes within the pulmonary parenchyma. No acute abnormality. Ayaan Moreno MD Septic Shock Reassessment Septic shock perfusion: reassessment completed Caprini VTE Risk Assessment Caprini VTE Risk Assessment: Mod/High Risk (score >= 2) Caprini Risk Assessment Model Point Value = 1 Point Value = 2 Point Value = 3 Point Value = 5 Age 41-60 Minor surgery BMI > 25 kg/m2 Swollen legs Varicose veins or History of unexplained or recurrent spontaneous Oral contraceptives or hormone replacement Sepsis (< 1 month) Serious lung disease, including pneumonia (< 1 month) Abnormal pulmonary function Acute myocardial infarction Congestive heart failure (< 1 month) History of inflammatory bowel disease Medical patient at bed rest Age 61-74 Arthroscopic surgery Major open surgery (> 45 min) Laparoscopic surgery (> 45 min) Malignancy Confined to bed (> 72 hours) Immobilizing plaster cast Central venous access Age >= 75 History of VTE Family history of VTE Factor V Leiden Prothrombin [id number] Lupus anticoagulant Anticardiolipin antibodies Elevated serum homocysteine Heparin-induced thrombocytopenia Other congenital or acquired thrombophilia Stroke (< 1 month) Elective arthroplasty Hip, pelvis, or leg fracture Acute spinal cord injury (< 1 month) Prophylaxis Regimen Total Risk Factor Score Risk Level Prophylaxis Regimen 0-1 Low Early ambulation 2 Moderate Order ONE of the following: *Sequential Compression Device (SCD) *Heparin 5000 units SQ BID 3-4 Higher Order ONE of the following medications: *Heparin 5000 units SQ TID *Enoxaparin/Lovenox 40 mg SQ daily (WT < 150 kg, CrCl > 30 mL/min) *Enoxaparin/Lovenox 30 mg SQ daily (WT < 150 kg, CrCl > 10-29 mL/min) *Enoxaparin/Lovenox 30 mg SQ BID (WT < 150 kg, CrCl > 30 mL/min) AND/OR *Sequential Compression Device (SCD) 5 or more Highest Order ONE of the following medications: *Heparin 5000 units SQ TID (Preferred with Epidurals) *Enoxaparin/Lovenox 40 mg SQ daily (WT < 150 kg, CrCl > 30 mL/min) *Enoxaparin/Lovenox 30 mg SQ daily (WT < 150 kg, CrCl > 10-29 mL/min) *Enoxaparin/Lovenox 30 mg SQ BID (WT < 150 kg, CrCl > 30 mL/min) AND *Sequential Compression Device (SCD) Assessment and Plan Problem List: (1) Costochondral chest pain ICD Code: R07.1 - Chest pain on breathing (2) Atypical chest pain ICD Code: R07.89 - Other chest pain Assessment and Plan 77 years old female with Atypical chest pain Costochondral chest pain ACS ruled out per protocol ruling out cardiac origin case discussed with Cardiology, Dr Charles CXR noted without any evidence of CPD Start Ibuprofen Bronchitis CXR without any CPD Start Z-Pack Low dose Medrol pack Allergy Start Claritin and Rosie Chronic cough Start Mucinex Other chronic medical conditions Resume outpatient medications stable for discharge Code Status Full code Discussed Condition With Patient, Dr Charles-cardiology Guilherme Solis MD Jul 05, 2017 11:50
[2017-07-05] MEDS ORDERED: guaiFENesin E.R. 600 MG TAB PO SCH (12:00)
[2017-07-05] MEDS ORDERED: CLAR10TA7 PO (12:06)
[2017-07-05] MEDS ORDERED: ZITHTAB PO (12:06)
[2017-07-05] MEDS ORDERED: MEDR4PAK PO (12:06)
[2017-07-05] MEDS ORDERED: guaiFENesin ER PO (12:06)
[2017-07-05] MEDS ORDERED: IBUP1TAB5 PO (12:06)
[2017-07-05] MEDS ORDERED: FEXO15TA PO (12:12)
--- NOTE | 2017-07-05 12:13 | HHI.PR ---
Addendum to Inpatient Note Addendum Reason: Additional Documentation Additional Information Discharge patient to home Condition on discharge: Improved Regular Diet as tolerated Ad Monica activity Rx written:see EMR Follow-up with primary care physician in 1 week Cardiology Guilherme Boyd MD Jul 05, 2017 12:13
[2017-07-05] MEDS ORDERED: AZITHROMYCIN 250 MG TAB PO SCH (13:00)
[2017-07-05] MEDS ORDERED: IBUPROFEN 400 MG TAB PO SCH (14:00)
--- NOTE | 2017-07-05 14:58 | EKG ---
Date Performed: 07/04/2017 Time Performed: 23:22:44 PTAGE: 77 years EKG: Sinus tachycardia with 1st degree A-V block Left axis deviation Nonspecific intraventricula r conduction delay Abnormal ECG PREVIOUS TRACING : 07/04/2017 17.02 No significant change from previous tracing noted. DOCTOR: Chase Badillo Interpretating Date/Time 07/05/2017 14:56:51
--- NOTE | 2017-07-05 15:54 | EKG ---
Date Performed: 07/04/2017 Time Performed: 17:02:28 PTAGE: 77 years EKG: Sinus rhythm WITH FIRST DEGREE AV BLOCK MARKED LEFT AXIS DEVIATION NONSPECIFIC INTRAVENTRICULAR CONDUCTION DELAY POOR R WAVE PROGRESSION ABNORMAL ECG PREVIOUS TRACING : 07/04/2017 10.42 No significant change from previous tracing noted. DOCTOR: Chase Badillo Interpretating Date/Time 07/05/2017 15:53:57
--- NOTE | 2017-07-05 18:18 | MB ---
cc: Felice Charles DO DATE OF CONSULT: REASON FOR CONSULTATION: Chest pain. HISTORY OF PRESENT ILLNESS: Richelle Looney is a pleasant 77-year-old female who I just recently started seeing in the inpatient setting on 06/28/2017. She originally presented with chest pain and shortness of breath and had abnormal stress test. Because of that, she underwent cardiac catheterization and during this, she was found to have significant disease in 2 spots on her RCA and this was treated with 2 drug-eluting stents. The day after her cardiac catheterization, she was doing relatively well with some minor shortness of breath but no chest pain and so she was discharged home. I was then called on 07/01/2017 as the patient was in the emergency [facility]. In discussing this with her, as well as the PA from the [facility], apparently she has previously been on Bumex, but liked Lasix much more and she was still short of breath and so she wanted a prescription for Lasix and when they asked her what she was there for apparently she told them that she was having chest pain and shortness of breath. In discussing with her, she does state that she had some chest pain, but it seemed at this time to be more with deep breathing and coughing. She then attempted to get set up in my office for followup after her PCI and she told them that she was having chest pain and shortness of breath and so they recommended she come to the emergency room. So she went to the emergency room yesterday in [place] and was transferred to [facility] for further recommendations. In seeing her this morning, she states the chest pain is only with deep breathing and coughing. She states that the shortness of breath has been around for some time. She denies any fevers or chills. She does feel that she has some nasal congestion as well as an upper respiratory infection. PAST MEDICAL HISTORY: 1. Coronary artery disease. 2. Dyslipidemia. 3. Gastroesophageal reflux disease. 4. Hypertension. 5. Unspecified congestive heart failure. PAST SURGICAL HISTORY: 1. Cardiac catheterization (06/29/2017). Overall normal left coronary system. RCA with a 99% stenosis in the mid portion and a 90% stenosis in the distal portion, status post Silver drug-eluting stent (2.25 x 12) to the distal RCA. 2. Left knee replacement. 3. Bilateral cataracts. 4. Hernia repair. ALLERGIES: NO KNOWN DRUG ALLERGIES. MEDICATIONS: 1. Aspirin 81 mg daily. 2. Brilinta 90 mg b.i.d. 3. Lipitor 80 mg every night. 4. Cardizem ER 240 mg every night. 5. Losartan 25 mg daily. 6. Potassium chloride 10 mEq daily. 7. Lasix 20 mg daily. 8. Omeprazole 20 mg b.i.d. FAMILY HISTORY: Mother had a myocardial infarction at the age of 72. Father had an unspecified cancer. SOCIAL HISTORY: The patient denies tobacco, alcohol or drug abuse. REVIEW OF SYSTEMS: Fourteen systems were reviewed including osteopathic, pertinent positives and negatives above, otherwise negative. PHYSICAL EXAMINATION: VITAL SIGNS: Temperature 98.4, heart rate 82, blood pressure 151/76, respirations 17, pulse oximetry 95% on room air. GENERAL: The patient appears well in no acute distress. Alert, awake and oriented x 3. HEENT: Extraocular muscles intact. Mucous membranes moist. NECK: Supple. No JVD at 45 degrees. No carotid bruits heard bilaterally. Carotid upstroke is brisk in nature. HEART: Regular rate and rhythm. Positive for and second heart sounds with no murmurs, gallops or rubs. LUNGS: Clear to auscultation bilaterally. No wheezes, rales or rhonchi. ABDOMEN: Soft, nontender, nondistended. No organomegaly noted. EXTREMITIES: Show no clubbing, cyanosis or edema. Femoral and distal pulses are intact bilaterally. NEUROLOGIC: No focal deficits. SKIN: Warm, dry and intact. OSTEOPATHIC: No kyphoscoliosis lordosis or paraspinal tender points. LABORATORY DATA: Hemoglobin 8.7, hematocrit 29.3, platelets 341. Potassium 3.3, BUN 22, creatinine 0.63. Troponin negative x 3. Electrocardiogram (07/04/2017 at 2322) sinus tachycardia, first degree AV block, left axis deviation, left bundle branch block. IMPRESSION: 1. Atypical chest pain appears to be musculoskeletal in nature. 2. Coronary artery disease, status post drug-eluting stent x 2 to the right coronary artery as above. 3. Congestive heart failure. 4. Hypertension. 5. Hyperlipidemia. RECOMMENDATIONS: 1. Ms. Looney presented with chest pain multiple times over the past week. Apparently, the first time she had chest pain was more felt to be ischemic and underwent stress testing and intervention as above. The second time it sounded like she was more likely to be short of breath than anything and the third time it sounded more like chest pain secondary to musculoskeletal issues. 2. She will be treated for bronchitis per the primary team. 3. We discussed overall concerning signs of chest pain from a cardiovascular standpoint. 4. We will keep her on aspirin, Brilinta, Cardizem, Losartan and Lasix therapy. 7. Cardiovascularly stable to be discharged for followup with me in the office. Thank you for allowing me to see Richelle Looney. If there are any questions, please do not hesitate to call. Felice Charles, VGP/KD , 05:28 PM , 06:17 PM
[2017-07-06] MEDS ORDERED: LORATADINE 10 MG TAB PO SCH (09:00)
== END 2017-07-05 14:14 | disposition home or self-care (01) ==
LOC: PHED 10:35 → PHEDA 12:30 → HCIS 17:55
PROVIDERS: ADMIT Hospitalist; ATTEND Hospitalist
DX: R07.1 Chest pain on breathing (principal); R07.89 Other chest pain; R06.02 Shortness of breath; J40 Bronchitis, not specified as acute or chronic; J06.9 Acute upper respiratory infection, unspecified; D64.9 Anemia, unspecified; I44.7 Left bundle-branch block, unspecified; I44.0 Atrioventricular block, first degree; R94.31 Abnormal electrocardiogram [ECG] [EKG]; I25.10 Atherosclerotic heart disease of native coronary artery without angina pectoris; I11.0 Hypertensive heart disease with heart failure; I50.9 Heart failure, unspecified; I48.91 Unspecified atrial fibrillation; E78.00 Pure hypercholesterolemia, unspecified; E11.9 Type 2 diabetes mellitus without complications; K21.9 Gastro-esophageal reflux disease without esophagitis; M19.90 Unspecified osteoarthritis, unspecified site; Z87.891 Personal history of nicotine dependence; Z79.899 Other long term (current) drug therapy; Z95.5 Presence of coronary angioplasty implant and graft
CPT/HCPCS: 71045; 80053; 82550; 83690; 83880; 84484; 85025; 85610; 85730; 93005; 96374; 99285; G0378; J2270

== ENCOUNTER 2017-07-18 12:20 | Emergency (ER) | payer OTHER ==
[~2017-07-18] VITALS: Ht 160 cm; Wt 116.8 kg
[~2017-07-18 12:20] MED LIST changes: +CLAR10TA7 PO; +FEXO15TA PO; +IBUP1TAB5 PO; +MEDR4PAK PO; -METO25TA3 PO; +ZITHTAB PO; +guaiFENesin ER PO
[2017-07-18 12:31] VITALS: BP 117/58; PULSE 98; RESP 22; TEMP 98.4; O2SAT 97
--- NOTE | 2017-07-18 13:15 | RADRPT ---
EXAM DATE/TIME: 07/18/2017 12:58 [place] COMPARISON: CHEST SINGLE AP, July 01, 2017, 12:16. CHEST SINGLE AP, July 04, 2017, 11:15. INDICATIONS : Shortness of breath. MEDICAL HISTORY : Gastroesophageal reflux disease. Hypertension SURGICAL HISTORY : Total knee replacement, left. Inguinal hernia repair. Cardiac stent ENCOUNTER: Initial ACUITY: 2 days PAIN SCORE: 0/10 LOCATION: Bilateral chest FINDINGS: The heart is mildly enlarged. The mediastinal contours demonstrate a hiatal hernia posteriorly are ot herwise unremarkable. The lungs are clear. The osseous structures demonstrate degenerative changes bu t are otherwise intact. CONCLUSION: 1. Mild cardiomegaly. 2. Hiatal hernia. Ayaan Moreno MD on July 18, 2017 at 13:05 Board Certified Radiologist. This report was verified electronically.
[2017-07-18 13:28] VITALS: BP 144/97; PULSE 89; RESP 16; O2SAT 96
--- NOTE | 2017-07-18 13:28 | PD ---
HPI Chief Complaint: Respiratory Symptoms Time Seen by Provider: 13:07 Travel History International Travel<30 days: No Contact w/Intl Traveler<30days: No Traveled to known affect area: No History of Present Illness HPI 77-year-old female with a history of cardiac stents, congestive heart failure presents emergency department at the request of her cardiology office for evaluation of increased shortness of breath, bilateral lower extremity edema and a 2 pound weight gain over the last day. Says that she has associated pressure in the midsternal region that has been relieved somewhat with her nitro patch. Says she did place her nitro patch this morning for her SOB and chest pressure. Admits to a cough and orthopnea that started last night. States she has been compliant with her medications which includes lasix. Says that she was treated for bronchitis at the end of June which included a steroid, a "Z-Shahid", and Claritin. Patient states that this did not completely resolve her symptoms. Says she does have a history of chronic rhinitis as well. PFSH Past Medical History Arthritis: Yes Asthma: No Autoimmune Disease: No Heart Rhythm Problems: Yes (a.fib) Cancer: No Cardiovascular Problems: Yes (STENT) High Cholesterol: Yes Chest Pain: Yes (this admit) Congestive Heart Failure: No COPD: No Cerebrovascular Accident: No Diabetes: Yes (type 2, diet controlled) Diminished Hearing: No Endocrine: Yes Gastrointestinal Disorders: Yes GERD: Yes Genitourinary: No Heparin Induced Thrombocytopen: No Hypertension: Yes Immune Disorder: No Implanted Vascular Access Dvce: Yes Musculoskeletal: Yes Neurologic: Yes Psychiatric: No Reproductive: No Respiratory: Yes Migraines: No Seizures: No Sickle Cell Disease: No Sleep Apnea: No Thyroid Disease: No Ulcer: No Past Surgical History Abdominal Surgery: Yes (ubilical hernia repair) AICD: No Body Medical Devices: right eye lens Cardiac Surgery: No Ear Surgery: No Endocrine Surgery: No Eye Surgery: Yes (right eye lens) Genitourinary Surgery: Yes (colonoscopy a couple years ago) Gynecologic Surgery: No Insulin Pump: No Joint Replacement: Yes (right knee) Neurologic Surgery: No Oral Surgery: No Pacemaker: No Thoracic Surgery: No Other Surgery: Yes Social History Alcohol Use: No Tobacco Use: No (Former smoker) Substance Use: No Allergies-Medications (Allergen,Severity, Reaction): Coded Allergies: No Known Allergies (Verified Allergy, Unknown, 07/04/17) Reported Meds & Prescriptions Reported Meds & Active Scripts Active Furosemide 40 Mg Tab 40 Mg PO DAILY Rosie Allergy (Fexofenadine HCl) 180 Mg Tab 180 Mg PO DAILY [guaiFENesin ER] 600 MG Tabcr 600 Mg PO BID Claritin (Loratadine) 10 Mg Tablet 10 Mg PO DAILY Lasix (Furosemide) 20 Mg Tab 20 Mg PO DAILY Klor-Con 10 (Potassium Chloride) 10 Meq Tab 10 Meq PO DAILY Tgt Aspirin (Aspirin) 81 Mg Chw 81 Mg PO DAILY Atorvastatin (Atorvastatin Calcium) 80 Mg Tab 80 Mg PO HS Brilinta (Ticagrelor) 90 Mg Tab 90 Mg PO BID Reported Centrum (Multiple Vitamins W/ Minerals) 1 Chew 1 Tab CHEW DAILY D3 Ultra Strength (Cholecalciferol) 5,000 Unit Cap 5,000 Units PO DAILY Omeprazole 20 Mg Tab 20 Mg PO BID Losartan (Losartan Potassium) 25 Mg Tab 25 Mg PO DAILY Diltiazem ER 24 HR 240 Mg Caper 240 Mg PO HS Review of Systems Except as stated in HPI: all other systems reviewed are Neg Physical Exam Narrative GENERAL: Well-developed, well-nourished, morbidly obese SKIN: Focused skin assessment warm/dry. HEAD: Atraumatic. Normocephalic. EYES: Pupils equal and round. No scleral icterus. No injection or drainage. ENT: No nasal bleeding or discharge. Mucous membranes pink and moist. NECK: Trachea midline. No JVD. CARDIOVASCULAR: Regular rate and rhythm. No murmur appreciated. RESPIRATORY: No accessory muscle use. slight rales, decreased slightly overall GASTROINTESTINAL: Abdomen soft, non-tender, nondistended. Hepatic and splenic margins not palpable. No CVA tenderness MUSCULOSKELETAL: No obvious deformities. No clubbing. No cyanosis. Bilateral lower extremities +2 pitting edema from midshin distal, skin intact NEUROLOGICAL: Awake and alert. No obvious cranial nerve deficits. Motor grossly within normal limits. Normal speech. PSYCHIATRIC: Appropriate mood and affect; insight and judgment normal. Data Data Last Documented VS Vital Signs Date Time Temp Pulse Resp B/P (MAP) Pulse Ox O2 Delivery O2 Flow Rate FiO2 07/18/17 13:28 89 16 144/97 (113) 96 Room Air 07/18/17 12:31 98.4 Orders Orders Complete Blood Count With Diff (07/18/17 12:33) Basic Metabolic Panel (Bmp) (07/18/17 12:33) B-Type Natriuretic Peptide (07/18/17 12:33) Act Partial Throm Time (Ptt) (07/18/17 12:33) Prothrombin Time / Inr (Pt) (07/18/17 12:33) Magnesium (Mg) (07/18/17 12:33) Ckmb (Isoenzyme) Profile (07/18/17 12:33) Troponin I (07/18/17 12:33) Electrocardiogram (07/18/17 12:33) Chest, Pa & Lat (07/18/17 12:33) Ed Discharge Order (07/18/17 14:47) Labs Laboratory Tests Test 07/18/17 13:24 White Blood Count 10.1 TH/MM3 Red Blood Count 4.65 MIL/MM3 Hemoglobin 9.5 GM/DL Hematocrit 32.0 % Mean Corpuscular Volume 68.9 FL Mean Corpuscular Hemoglobin 20.3 PG Mean Corpuscular Hemoglobin Concent 29.5 % Red Cell Distribution Width 19.2 % Platelet Count 469 TH/MM3 Mean Platelet Volume 7.4 FL Neutrophils (%) (Auto) 75.9 % Lymphocytes (%) (Auto) 14.1 % Monocytes (%) (Auto) 8.7 % Eosinophils (%) (Auto) 1.1 % Basophils (%) (Auto) 0.2 % Neutrophils # (Auto) 7.7 TH/MM3 Lymphocytes # (Auto) 1.4 TH/MM3 Monocytes # (Auto) 0.9 TH/MM3 Eosinophils # (Auto) 0.1 TH/MM3 Basophils # (Auto) 0.0 TH/MM3 CBC Comment DIFF FINAL Differential Comment Prothrombin Time 10.3 SEC Prothromb Time International Ratio 1.0 RATIO Activated Partial Thromboplast Time 26.4 SEC Blood Urea Nitrogen 19 MG/DL Creatinine 0.65 MG/DL Random Glucose 75 MG/DL Calcium Level 8.9 MG/DL Magnesium Level 2.0 MG/DL Sodium Level 142 MEQ/L Potassium Level 3.4 MEQ/L Chloride Level 106 MEQ/L Carbon Dioxide Level 28.2 MEQ/L Anion Gap 8 MEQ/L Estimat Glomerular Filtration Rate 89 ML/MIN Total Creatine Kinase 41 U/L Troponin I LESS THAN 0.02 NG/ML B-Type Natriuretic Peptide 109 PG/ML MDM Medical Decision Making Medical Screen Exam Complete: Yes Emergency Medical Condition: Yes Differential Diagnosis Congestive heart failure, NSTEMI, angina Narrative Course 77-year-old female presents emergency department for evaluation of 2 pound weight gain, increased shortness of breath, and lower extremity edema over the last day. Labs and imaging studies ordered. Vital signs stable. EKG shows sinus tachycardia at rate 101 with occasional PVC. This EKG appears similar to June 2017 EKG. CBC & BMP Diagram 07/18/17 13:24 Calcium Level 8.9, Magnesium Level 2.0 Troponin negative, BNP stable Last Impressions Chest X-Ray 07/18/17 1233 Signed Impressions: Service Date/Time: Tuesday, July 18, 2017 12:58 - CONCLUSION: 1. Mild cardiomegaly. 2. Hiatal hernia. Ayaan Moreno MD Please see Dr. Lantigua's note as well. Dr. Lantigua spoke with Dr. Charles who agreed to an increase of Lasix to 40 mg daily. Patient will be discharged with prescription. Advised to follow-up with primary care physician and cigarette seller this week. Follow-up in the emergency department worsening or persistent symptoms. Diagnosis Primary Impression: Edema Qualified Codes: R60.0 - Localized edema Admitting Information Admitting Physician Requests: Observation Referrals: [employer] Patient Instructions: General Instructions Additional Instructions: Take all medications as prescribed. Your Lasix has increased from 20-40 mg daily. See new prescription. Follow-up with cigarette seller office this week. Follow-up with your primary care physician as well. Return to the emergency department for worsening or persistent symptoms. Med/Other Pt SpecificInfo: Existing Med Changed Scripts Furosemide (Furosemide) 40 Mg Tab 40 MG PO DAILY, #30 TAB 0 Refills Prov: Angel Lantigua MD 07/18/17 Disposition: 01 DISCHARGE HOME Condition: Stable Adelita Hidalgo Jul 18, 2017 13:28
[2017-07-18 13:48] LABS: AUTOMATED NEUTROPHIL # 7.7 TH/MM3 (1.8-7.7); BASOPHIL % 0.2 % (0.0-2.0); EOSINOPHIL # 0.1 TH/MM3 (0-0.4); EOSINOPHIL % 1.1 % (0.0-4.0); HEMOGLOBIN 9.5 GM/DL (11.6-15.3); LYMPH % 14.1 % (9.0-44.0); LYMPHOCYTE # 1.4 TH/MM3 (1.0-4.8); MEAN CELL VOLUME 68.9 FL (80.0-100.0); MEAN CORPUSCULAR HEMOGLOBIN 20.3 PG (27.0-34.0); MEAN PLATELET VOLUME 7.4 FL (7.0-11.0); MONO % 8.7 % (0.0-8.0); MONOCYTE # 0.9 TH/MM3 (0-0.9); NEUT % 75.9 % (16.0-70.0); PLATELET COUNT 469 TH/MM3 (150-450); RED BLOOD COUNT 4.65 MIL/MM3 (4.00-5.30); RED CELL DISTRIBUTION WIDTH 19.2 % (11.6-17.2); WHITE BLOOD COUNT 10.1 TH/MM3 (4.0-11.0)
[2017-07-18 13:50] LABS: MEAN CORPUSCULAR HGB CONC 29.5 % (32.0-36.0)
[2017-07-18 13:56] LABS: PROTHROMBIN TIME - PATIENT 10.3 SEC (9.8-11.6)
[2017-07-18 14:10] LABS: BICARBONATE 28.2 MEQ/L (21.0-32.0); BLOOD UREA NITROGEN 19 MG/DL (7-18); CALCIUM 8.9 MG/DL (8.5-10.1); CHLORIDE 106 MEQ/L (98-107); CREATININE 0.65 MG/DL (0.50-1.00); GLOMERULAR FILTRATION RATE 89 ML/MIN (>89); GLUCOSE,RANDOM 75 MG/DL (74-106); SODIUM (NA) 142 MEQ/L (136-145)
[2017-07-18 14:14] LABS: TROPONIN I LESS THAN 0.02 NG/ML (0.02-0.05)
[2017-07-18] MEDS ORDERED: FURO40TA PO (14:40)
--- NOTE | 2017-07-18 14:40 | PD ---
Data Data Last Documented VS Vital Signs Date Time Temp Pulse Resp B/P (MAP) Pulse Ox O2 Delivery O2 Flow Rate FiO2 07/18/17 15:17 64 17 145/88 (107) 96 07/18/17 13:28 Room Air 07/18/17 12:31 98.4 Orders Orders Complete Blood Count With Diff (07/18/17 12:33) Basic Metabolic Panel (Bmp) (07/18/17 12:33) B-Type Natriuretic Peptide (07/18/17 12:33) Act Partial Throm Time (Ptt) (07/18/17 12:33) Prothrombin Time / Inr (Pt) (07/18/17 12:33) Magnesium (Mg) (07/18/17 12:33) Ckmb (Isoenzyme) Profile (07/18/17 12:33) Troponin I (07/18/17 12:33) Electrocardiogram (07/18/17 12:33) Chest, Pa & Lat (07/18/17 12:33) Ed Discharge Order (07/18/17 14:47) Labs Laboratory Tests Test 07/18/17 13:24 White Blood Count 10.1 TH/MM3 Red Blood Count 4.65 MIL/MM3 Hemoglobin 9.5 GM/DL Hematocrit 32.0 % Mean Corpuscular Volume 68.9 FL Mean Corpuscular Hemoglobin 20.3 PG Mean Corpuscular Hemoglobin Concent 29.5 % Red Cell Distribution Width 19.2 % Platelet Count 469 TH/MM3 Mean Platelet Volume 7.4 FL Neutrophils (%) (Auto) 75.9 % Lymphocytes (%) (Auto) 14.1 % Monocytes (%) (Auto) 8.7 % Eosinophils (%) (Auto) 1.1 % Basophils (%) (Auto) 0.2 % Neutrophils # (Auto) 7.7 TH/MM3 Lymphocytes # (Auto) 1.4 TH/MM3 Monocytes # (Auto) 0.9 TH/MM3 Eosinophils # (Auto) 0.1 TH/MM3 Basophils # (Auto) 0.0 TH/MM3 CBC Comment DIFF FINAL Differential Comment Prothrombin Time 10.3 SEC Prothromb Time International Ratio 1.0 RATIO Activated Partial Thromboplast Time 26.4 SEC Blood Urea Nitrogen 19 MG/DL Creatinine 0.65 MG/DL Random Glucose 75 MG/DL Calcium Level 8.9 MG/DL Magnesium Level 2.0 MG/DL Sodium Level 142 MEQ/L Potassium Level 3.4 MEQ/L Chloride Level 106 MEQ/L Carbon Dioxide Level 28.2 MEQ/L Anion Gap 8 MEQ/L Estimat Glomerular Filtration Rate 89 ML/MIN Total Creatine Kinase 41 U/L Troponin I LESS THAN 0.02 NG/ML B-Type Natriuretic Peptide 109 PG/ML MDM Supervised Visit with FLAQUITA: Yes Narrative Course I, Dr. Lantigua, have reviewed the advance practice practitioner's documentation and am in agreement, met with the patient face to face, made the diagnosis, and the medical decision making was done by me. *My assessment and Findings: Patient seen and examined by me in addition to Adelita Hidalgo PA-C Patient 77-year-old female whose chief complaint to me today is that she has had some swelling in the legs, she states she called the heddle machine operator office only to get permission to increase her Lasix because this is all she really wanted the when she mentioned that she was having some mild chest discomfort she was referred to the emergency department. Patient EKG troponin are negative here, she has very atypical chest pain at this time. I did discuss briefly with Dr. Charles and he is okay with the patient going home and following up with him. This was discussed with the patient, she is stable for discharge Scripts Furosemide (Furosemide) 40 Mg Tab 40 MG PO DAILY, #30 TAB 0 Refills Prov: Angel Lantigua MD 07/18/17 Disposition: 01 DISCHARGE HOME Condition: Stable Angel Lantigua MD Jul 18, 2017 14:40
[2017-07-18 15:17] VITALS: BP 145/88
--- NOTE | 2017-07-19 16:47 | EKG ---
Date Performed: 07/18/2017 Time Performed: 13:30:53 PTAGE: 77 years EKG: SINUS TACHYCARDIA WITH FIRST DEGREE AV BLOCK WITH FREQUENT VENTRICULAR PREMATURE COMPLEXES MARKED LEFT AXIS DEVIATION POSSIBLE ANTERIOR MYOCARDIAL INFARCTION Since previous tracing, no signifi cant change noted ABNORMAL ECG PREVIOUS TRACING : 07/04/2017 23.22 DOCTOR: Cy Allison Interpretating Date/Time 07/19/2017 16:44:15
== END 2017-07-18 15:23 | disposition home or self-care (01) ==
LOC: NEPC 12:20
DX: R07.89 Other chest pain (principal); I11.0 Hypertensive heart disease with heart failure; I50.9 Heart failure, unspecified; E78.00 Pure hypercholesterolemia, unspecified; K21.9 Gastro-esophageal reflux disease without esophagitis; Z87.891 Personal history of nicotine dependence
CPT/HCPCS: 71046; 80048; 82550; 83735; 83880; 84484; 85025; 85610; 85730; 93005